=== PATIENT | male | born 1990 | race Caucasian/White ===

== ENCOUNTER 2020-04-13 02:38 | Inpatient (IN) | payer OTHER, SELFPAY ==
[2020-04-18 02:20] VITALS: BMI 31.3
[2020-04-19 06:48] VITALS: BP 106/56; PULSE 54; RESP 16; TEMP 36.5; O2SAT 99
[2020-04-19 07:00] VITALS: BMI 68.1
[2020-04-19] MEDS: QUEtiapine Fumarate 100 MG TABLET PO ×2 (09:30→20:11)
[2020-04-19] MEDS: clonazePAM 1 MG TABLET PO ×2 (09:30→17:03)
[2020-04-19 12:43] LABS: Valproate 61.9 mcg/mL (50.0-100.0)
[2020-04-19] MEDS: LORazepam 1 MG TABLET 2 MG PO (15:02)
[2020-04-19] MEDS: Magnesium Hydrox/Alum Hydrox 30 ML ORAL.SUSP PO (15:22)
[2020-04-19 16:59] VITALS: BP 127/80; PULSE 89; TEMP 36.8
--- NOTE | 2020-04-19 17:25 | HO.PSYCHPN ---
Assessment & Plan Assessment & Plan (1) Mood swings: Status: Acute Code(s): R45.86 - Emotional lability Assessment and Plan: Continue seroquel Continue education Monitor response Greater than 50% of the session was spent on counseling and/or coordination of care Subjective Subjective Date of Service: 04/19/20 Reason For Visit: Schizoaffective D/O Bipolar Type Subjective Notes: Conditional Voluntary and 3 Day Interim History: Rai is calmer and more engaged. He articulates that he can see that he needs to be on mood stabilization and that without it he is impulsive and erratic. He has found the current dose of seroquel helpful. He is likely to be DC 04/23/20 Medication Compliance: Yes Side effects from medications: No Attending Groups: Intermittent Mental Status Exam Mental Status Exam Patient Appearance: Well Grooomed Patient Orientation: Person Level of Consciousness: Awake Patient Behavior: Talkative, Impulsive and Pacing Mood Description: Calm, Appropriate and Nervous Affect Description: Suspicious, Nervous and Apprehensive Ability to Follow Directions: Fair Speech Pattern: Clear Memory Description: Intact Thought Content: Circumstantial, Preoccupation and Evasive Depressive Symptoms: Increased Anxiety Abnormal Motor Activity Signs and Symptoms: Hyperactivity Judgement: Fair Diagnostics Vital Signs (24Hr): Vital Signs - 24 hr 04/19/20 06:48 04/19/20 16:59 Temperature 97.7 F 98.2 F Pulse Rate 54 89 Respiratory Rate 16 Blood Pressure 106/56 L 127/80 Pulse Oximetry 99 Body Mass Index 68.1 Labs Results: 04/15/20 07:55 04/15/20 07:55 Labs: Laboratory Results - last 48 hr 04/15/20 04/19/20 04/19/20 07:55 07:00 11:04 Estimat Average Glucose 103 Hemoglobin A1c 5.2 Valproic Acid Not Rcvd 61.9 Medications Medications Ambulatory Orders Medication Instructions Recorded clonazepam 1 mg PO BID 04/18/20 clonidine HCl 0.1 mg PO BID PRN 04/18/20 quetiapine 50 mg PO BEDTIME 04/18/20 Allergies Allergies Allergy/AdvReac Type Severity Reaction Status Date / Time Sulfa (Sulfonamide Allergy Unknown RASH Verified 04/18/20 18:51 Antibiotics) [SULFA (SULFONAMIDE ANTIBIOTICS)]
--- NOTE | 2020-04-19 17:30 | HO.PSYCHPN ---
Assessment & Plan Greater than 50% of the session was spent on counseling and/or coordination of care Subjective Subjective Date of Service: 04/19/20 Reason For Visit: Schizoaffective D/O Bipolar Type Subjective Notes: Conditional Voluntary and 3 Day Diagnostics Vital Signs (24Hr): Vital Signs - 24 hr 04/19/20 06:48 04/19/20 16:59 Temperature 97.7 F 98.2 F Pulse Rate 54 89 Respiratory Rate 16 Blood Pressure 106/56 L 127/80 Pulse Oximetry 99 Body Mass Index 68.1 Labs Results: 04/15/20 07:55 04/15/20 07:55 Labs: Laboratory Results - last 48 hr 04/15/20 04/19/20 04/19/20 07:55 07:00 11:04 Estimat Average Glucose 103 Hemoglobin A1c 5.2 Valproic Acid Not Rcvd 61.9 Medications Medications Ambulatory Orders Medication Instructions Recorded clonazepam 1 mg PO BID 04/18/20 clonidine HCl 0.1 mg PO BID PRN 04/18/20 quetiapine 50 mg PO BEDTIME 04/18/20 Allergies Allergies Allergy/AdvReac Type Severity Reaction Status Date / Time Sulfa (Sulfonamide Allergy Unknown RASH Verified 04/18/20 18:51 Antibiotics) [SULFA (SULFONAMIDE ANTIBIOTICS)]
[2020-04-19] MEDS: Divalproex Sodium ER 500 MG TAB.ER.24H 1000 MG PO (20:06)
[2020-04-19] MEDS: QUEtiapine Fumarate 400 MG TABLET PO (20:06)
[2020-04-20 06:20] VITALS: BP 108/58; PULSE 65; RESP 16; TEMP 36.6; O2SAT 96
[2020-04-20] MEDS: clonazePAM 1 MG TABLET PO ×2 (08:43→19:27)
[2020-04-20] MEDS: QUEtiapine Fumarate 100 MG TABLET PO ×2 (08:43→20:01)
[2020-04-20 10:27] LABS: Valproate 57.3 mcg/mL (50.0-100.0)
[2020-04-20] MEDS: LORazepam 1 MG TABLET 2 MG PO ×2 (12:21→19:35)
[2020-04-20 14:16] VITALS: BP 100/70; PULSE 68
[2020-04-20] MEDS: Magnesium Hydrox/Alum Hydrox 30 ML ORAL.SUSP PO (14:16)
[2020-04-20] MEDS: cloNIDine HCL 0.1 MG TABLET PO (14:16)
[2020-04-20 18:00] VITALS: BP 109/56; PULSE 69; TEMP 37.1
--- NOTE | 2020-04-20 19:07 | HO.PSYCHPN ---
Assessment & Plan Assessment & Plan (1) Mood swings: Status: Acute Code(s): R45.86 - Emotional lability Assessment and Plan: Continue seroquel Greater than 50% of the session was spent on counseling and/or coordination of care Subjective Subjective Date of Service: 04/20/20 Reason For Visit: Schizoaffective D/O Bipolar Type Subjective Notes: Conditional Voluntary and 3 Day Interim History: Ria continues to be more settled and more willing to take seroquel. He is more accepting of the need to take medications and of his illness. He is hoping to go home on 04/23/20 and to return to work. Medication Compliance: Yes Side effects from medications: No Attending Groups: Yes Review of Systems Acute medical concerns: No Medical Review of Systems: unchanged Mental Status Exam Mental Status Exam Patient Appearance: Well Grooomed Patient Orientation: Person and Place Level of Consciousness: Appropriate Patient Behavior: Appropriate and Distractible Mood Description: Anxious and Angry Affect Description: Anxious Patient Cognition Impaired: No Ability to Follow Directions: Fair Speech Pattern: Clear Memory Description: Intact Hallucinations: None Delusions: Paranoid Ideation and Grandiose Thought Process: Rumination and Evasive Thought Content: positive for Suicidal Ideation (NONE) and positive for Homicidal Ideation (None) Judgement: Fair Judgement and Insight: Insight into illness is improving Diagnostics Vital Signs (24Hr): Vital Signs - 24 hr 04/20/20 06:20 04/20/20 14:16 Temperature 97.8 F Pulse Rate 65 68 Respiratory Rate 16 Blood Pressure 108/58 L 100/70 Pulse Oximetry 96 Body Mass Index 68.1 Labs Results: 04/15/20 07:55 04/15/20 07:55 Labs: Laboratory Results - last 48 hr 04/15/20 04/19/20 04/19/20 07:55 07:00 11:04 Estimat Average Glucose 103 Hemoglobin A1c 5.2 Valproic Acid Not Rcvd 61.9 04/20/20 07:53 Estimat Average Glucose Hemoglobin A1c Valproic Acid 57.3 Medications Medications Current Medications Generic Name Dose Route Start Last Admin Trade Name Freq PRN Reason Stop Dose Admin Acetaminophen 650 mg 04/19/20 00:01 Acetaminophen 325 Mg Tablet PO Q6H PRN HEADACHE/PAIN.MILD (SCALE 1-3) Al Hydroxide/Mg Hydroxide 30 ml 04/19/20 00:01 04/20/20 14:16 Magnesium Hydrox/Alum Hydrox 30 Ml Oral.Susp PO 30 ml Q6H PRN Administration HEARTBURN/NAUSEA Clonazepam 1 mg 04/19/20 08:00 04/20/20 08:43 Clonazepam 1 Mg Tablet PO 1 mg BID@0800,1700 MYRNA Administration Clonidine HCl 0.1 mg 04/19/20 00:01 04/20/20 14:16 Clonidine Hcl 0.1 Mg Tablet PO 0.1 mg BID PRN Administration Anxiety Protocol Divalproex Sodium 1,000 mg 04/19/20 21:00 04/19/20 20:06 Divalproex Sodium Er 500 Mg Tab.Er.24h PO 1,000 mg BEDTIME MYRNA Administration Hydroxyzine HCl 25 mg 04/19/20 21:00 Hydroxyzine Hcl 25 Mg Tablet PO BEDTIME MRX1 PRN NIGHT TIME ANXIETY Lorazepam 2 mg 04/19/20 00:01 04/20/20 12:21 Lorazepam 1 Mg Tablet PO 2 mg Q4H PRN Administration anxiety/restlessness Magnesium Hydroxide 30 ml 04/19/20 00:01 Milk Of Magnesia 30 Ml Oral.Susp PO Q24H PRN Constipation Nicotine Polacrilex 2 mg 04/19/20 00:01 Nicotine Polacrilex 2 Mg Gum BUCCAL Q2H PRN Nicotine Cravings Quetiapine Fumarate 100 mg 04/19/20 09:00 04/20/20 08:43 Quetiapine Fumarate 100 Mg Tablet PO 100 mg DAILY MYRNA Administration Quetiapine Fumarate 100 mg 04/19/20 00:01 04/19/20 20:11 Quetiapine Fumarate 100 Mg Tablet PO 100 mg Q4H PRN Administration Psychosis Quetiapine Fumarate 400 mg 04/19/20 21:00 04/19/20 20:06 Quetiapine Fumarate 400 Mg Tablet PO 400 mg BEDTIME MYRNA Administration Trazodone HCl 50 mg 04/19/20 21:00 Trazodone Hcl 50 Mg Tablet PO BEDTIME MRX1 PRN Insomnia Allergies Allergies Allergy/AdvReac Type Severity Reaction Status Date / Time Sulfa (Sulfonamide Allergy Unknown RASH Verified 04/18/20 18:51 Antibiotics) [SULFA (SULFONAMIDE ANTIBIOTICS)]
[2020-04-20] MEDS: QUEtiapine Fumarate 400 MG TABLET PO (19:59)
[2020-04-20] MEDS: Divalproex Sodium ER 500 MG TAB.ER.24H 1000 MG PO (19:59)
[2020-04-21 06:50] VITALS: BP 109/56; PULSE 56; RESP 16; TEMP 37.1
[2020-04-21] MEDS: QUEtiapine Fumarate 100 MG TABLET PO ×2 (08:44→21:52)
[2020-04-21] MEDS: clonazePAM 1 MG TABLET PO ×2 (08:44→17:12)
--- NOTE | 2020-04-21 12:10 | HO.PSYCHPN ---
Assessment & Plan Assessment & Plan (1) Mood swings: Status: Acute Code(s): R45.86 - Emotional lability Assessment and Plan: reviewed plan for dc and taking medications, pt excited to go back to work has been in touch with nate greene and will follow up with outpatient for medications Greater than 50% of the session was spent on counseling and/or coordination of care Subjective Subjective Date of Service: 04/21/20 Reason For Visit: Schizoaffective D/O Bipolar Type Subjective Notes: 3 Day Interim History: anxious and excited to go back to work happy to be back on his medications Medication Compliance: Yes Side effects from medications: Yes (xs sleeping- but ok with that) Attending Groups: No Review of Systems Acute medical concerns: No Review of Systems: some xs fatigue back on medications Mental Status Exam Mental Status Exam Narrative: appropriately dressed in street clothes, groomed Patient Appearance: Well Grooomed Patient Orientation: Person, Place, Time and Situation Level of Consciousness: Restless and Alert Patient Behavior: Appropriate, Cooperative and Pacing Mood Description: Apprehensive Affect Description: Expansive (possibly) Patient Cognition Impaired: No Memory Description: Intact and Normal for Patient Hallucinations: None Delusions: Grandiose (slight- tamara [employer] ) Thought Process: Intact Thought Content: positive for [place] Abnormal Motor Activity Signs and Symptoms: Hyperactivity (pacing) and Restlessness Judgement: Fair (knows he needs to be back on medications) Diagnostics Vital Signs (24Hr): Vital Signs - 24 hr 04/20/20 14:16 04/20/20 18:00 04/21/20 06:50 Temperature 98.8 F 98.7 F Pulse Rate 68 69 56 Respiratory Rate 16 Blood Pressure 100/70 109/56 L 109/56 L Body Mass Index Labs Results: 04/15/20 07:55 04/15/20 07:55 Labs: Laboratory Results - last 48 hr 04/19/20 04/20/20 11:04 07:53 Valproic Acid 61.9 57.3 Medications Medications Current Medications Generic Name Dose Route Start Last Admin Trade Name Freq PRN Reason Stop Dose Admin Acetaminophen 650 mg 04/19/20 00:01 Acetaminophen 325 Mg Tablet PO Q6H PRN HEADACHE/PAIN.MILD (SCALE 1-3) Al Hydroxide/Mg Hydroxide 30 ml 04/19/20 00:01 10/02/20 14:16 Magnesium Hydrox/Alum Hydrox 30 Ml Oral.Susp PO 30 ml Q6H PRN Administration HEARTBURN/NAUSEA Clonazepam 1 mg 04/19/20 08:00 04/21/20 08:44 Clonazepam 1 Mg Tablet PO 1 mg BID@0800,1700 MYRNA Administration Clonidine HCl 0.1 mg 04/19/20 00:01 04/20/20 14:16 Clonidine Hcl 0.1 Mg Tablet PO 0.1 mg BID PRN Administration Anxiety Protocol Divalproex Sodium 1,000 mg 04/19/20 21:00 04/20/20 19:59 Divalproex Sodium Er 500 Mg Tab.Er.24h PO 1,000 mg BEDTIME MYRNA Administration Hydroxyzine HCl 25 mg 04/19/20 21:00 Hydroxyzine Hcl 25 Mg Tablet PO BEDTIME MRX1 PRN NIGHT TIME ANXIETY Lorazepam 2 mg 04/19/20 00:01 04/20/20 19:35 Lorazepam 1 Mg Tablet PO 2 mg Q4H PRN Administration anxiety/restlessness Magnesium Hydroxide 30 ml 04/19/20 00:01 Milk Of Magnesia 30 Ml Oral.Susp PO Q24H PRN Constipation Nicotine Polacrilex 2 mg 04/19/20 00:01 Nicotine Polacrilex 2 Mg Gum BUCCAL Q2H PRN Nicotine Cravings Quetiapine Fumarate 100 mg 04/19/20 09:00 04/21/20 08:44 Quetiapine Fumarate 100 Mg Tablet PO 100 mg DAILY MYRNA Administration Quetiapine Fumarate 100 mg 04/19/20 00:01 04/20/20 20:01 Quetiapine Fumarate 100 Mg Tablet PO 100 mg Q4H PRN Administration Psychosis Quetiapine Fumarate 400 mg 04/19/20 21:00 04/20/20 19:59 Quetiapine Fumarate 400 Mg Tablet PO 400 mg BEDTIME MYRNA Administration Trazodone HCl 50 mg 04/19/20 21:00 Trazodone Hcl 50 Mg Tablet PO BEDTIME MRX1 PRN Insomnia Allergies Allergies Allergy/AdvReac Type Severity Reaction Status Date / Time Sulfa (Sulfonamide Allergy Unknown RASH Verified 04/18/20 18:51 Antibiotics) [SULFA (SULFONAMIDE ANTIBIOTICS)]
[2020-04-21 12:24] VITALS: BP 120/67; PULSE 105
[2020-04-21] MEDS: cloNIDine HCL 0.1 MG TABLET PO (12:24)
[2020-04-21] MEDS: LORazepam 1 MG TABLET 2 MG PO ×2 (13:32→20:50)
[2020-04-21 19:09] VITALS: BP 130/56; PULSE 108; TEMP 36.6
[2020-04-21] MEDS: QUEtiapine Fumarate 400 MG TABLET PO (20:51)
[2020-04-21] MEDS: Divalproex Sodium ER 500 MG TAB.ER.24H 1000 MG PO (20:51)
[2020-04-21] MEDS: traZODone HCL 50 MG TABLET PO (21:52)
[2020-04-22 06:00] VITALS: BP 108/57; PULSE 60; RESP 16; TEMP 36.2; O2SAT 98
[2020-04-22] MEDS: QUEtiapine Fumarate 100 MG TABLET PO ×2 (08:24→19:48)
[2020-04-22] MEDS: clonazePAM 1 MG TABLET PO ×2 (08:24→17:09)
--- NOTE | 2020-04-22 12:31 | HO.PSYCHPN ---
Assessment & Plan Assessment & Plan (1) Mood swings: Status: Acute Code(s): R45.86 - Emotional lability Assessment and Plan: anxious to get back to [employer] job now that back on medications only has 6 wks of work to go Greater than 50% of the session was spent on counseling and/or coordination of care Subjective Subjective Date of Service: 04/22/20 Reason For Visit: Schizoaffective D/O Bipolar Type Subjective Notes: 3 Day Interim History: initially was lying in bed, didn't engage much, then saw me in kitchen- anxious to get back to work - discussed with pt lowering of ativan, though he says it helps- but he won't be dced on it and is also on clonazepam - Medication Compliance: Yes Side effects from medications: No Attending Groups: Intermittent Review of Systems Acute medical concerns: No Medical Review of Systems: unchanged Mental Status Exam Mental Status Exam Narrative: patient managing symptoms but seems on edge- a bit off Patient Appearance: Appropriate Patient Orientation: Person, Place, Time and Situation Level of Consciousness: Awake and Alert Patient Behavior: Talkative, Hyperactive and Anxious Mood Description: Anxious Affect Description: Apprehensive Patient Cognition Impaired: No Ability to Follow Directions: Fair Speech Pattern: Clear Hallucinations: None Thought Process: Racing and Rumination Depressive Symptoms: Increased Anxiety Abnormal Motor Activity Signs and Symptoms: Hyperactivity Judgement: Fair (maybe trying to get dc too quickly due to some pressure to get to work) Diagnostics Vital Signs (24Hr): Vital Signs - 24 hr 04/21/20 19:09 04/22/20 06:00 Temperature 97.8 F 97.1 F Pulse Rate 108 H 60 Respiratory Rate 16 Blood Pressure 130/56 L 108/57 L Pulse Oximetry 98 Body Mass Index Labs Results: 04/15/20 07:55 04/15/20 07:55 Medications Medications Current Medications Generic Name Dose Route Start Last Admin Trade Name Freq PRN Reason Stop Dose Admin Acetaminophen 650 mg 04/19/20 00:01 Acetaminophen 325 Mg Tablet PO Q6H PRN HEADACHE/PAIN.MILD (SCALE 1-3) Al Hydroxide/Mg Hydroxide 30 ml 04/19/20 00:01 04/20/20 14:16 Magnesium Hydrox/Alum Hydrox 30 Ml Oral.Susp PO 30 ml Q6H PRN Administration HEARTBURN/NAUSEA Clonazepam 1 mg 04/19/20 08:00 04/22/20 08:24 Clonazepam 1 Mg Tablet PO 1 mg BID@0800,1700 MYRNA Administration Clonidine HCl 0.1 mg 04/19/20 00:01 04/21/20 12:24 Clonidine Hcl 0.1 Mg Tablet PO 0.1 mg BID PRN Administration Anxiety Protocol Divalproex Sodium 1,000 mg 04/19/20 21:00 04/21/20 20:51 Divalproex Sodium Er 500 Mg Tab.Er.24h PO 1,000 mg BEDTIME MYRNA Administration Hydroxyzine HCl 25 mg 04/19/20 21:00 Hydroxyzine Hcl 25 Mg Tablet PO BEDTIME MRX1 PRN NIGHT TIME ANXIETY Lorazepam 1 mg 04/22/20 10:52 Lorazepam 1 Mg Tablet PO Q4H PRN anxiety/restlessness Magnesium Hydroxide 30 ml 04/19/20 00:01 Milk Of Magnesia 30 Ml Oral.Susp PO Q24H PRN Constipation Nicotine Polacrilex 2 mg 04/19/20 00:01 Nicotine Polacrilex 2 Mg Gum BUCCAL Q2H PRN Nicotine Cravings Quetiapine Fumarate 100 mg 04/19/20 09:00 04/22/20 08:24 Quetiapine Fumarate 100 Mg Tablet PO 100 mg DAILY MYRNA Administration Quetiapine Fumarate 100 mg 04/19/20 00:01 04/21/20 21:52 Quetiapine Fumarate 100 Mg Tablet PO 100 mg Q4H PRN Administration Psychosis Quetiapine Fumarate 400 mg 04/19/20 21:00 04/21/20 20:51 Quetiapine Fumarate 400 Mg Tablet PO 400 mg BEDTIME MYRNA Administration Trazodone HCl 50 mg 04/19/20 21:00 04/21/20 21:52 Trazodone Hcl 50 Mg Tablet PO 50 mg BEDTIME MRX1 PRN Administration Insomnia Allergies Allergies Allergy/AdvReac Type Severity Reaction Status Date / Time Sulfa (Sulfonamide Allergy Unknown RASH Verified 04/18/20 18:51 Antibiotics) [SULFA (SULFONAMIDE ANTIBIOTICS)]
[2020-04-22 12:54] VITALS: BP 117/68; PULSE 103
[2020-04-22] MEDS: LORazepam 1 MG TABLET PO ×2 (12:54→19:47)
[2020-04-22] MEDS: cloNIDine HCL 0.1 MG TABLET PO (12:54)
[2020-04-22] MEDS: Magnesium Hydrox/Alum Hydrox 30 ML ORAL.SUSP PO (14:02)
[2020-04-22 16:24] VITALS: BP 117/68; PULSE 88; TEMP 36.4
[2020-04-22] MEDS: QUEtiapine Fumarate 400 MG TABLET PO (19:42)
[2020-04-22] MEDS: Divalproex Sodium ER 500 MG TAB.ER.24H 1000 MG PO (19:42)
[2020-04-22] MEDS: traZODone HCL 50 MG TABLET PO (22:08)
[2020-04-23 06:55] VITALS: BP 111/59; PULSE 78; RESP 18; TEMP 36.5
[2020-04-23] MEDS: clonazePAM 1 MG TABLET PO (08:23)
[2020-04-23] MEDS: QUEtiapine Fumarate 100 MG TABLET PO (08:23)
--- NOTE | 2020-04-23 09:26 | HO.PSYCHPN ---
Assessment & Plan Assessment & Plan (1) Bipolar disorder: Status: Acute Code(s): F31.9 - Bipolar disorder, unspecified Assessment and Plan: Good response to medication Stable for DC Greater than 50% of the session was spent on counseling and/or coordination of care Patient educated on: diagnosis, medication risk/benefits and substance abuse Informed Consent: understands Reason for contiued inpatient stay Substantial Risk for: stable for discharge Subjective Subjective Date of Service: 04/23/20 Reason For Visit: Schizoaffective D/O Bipolar Type Subjective Notes: 3 Day Interim History: Rai was notably calmer and more engaged. He was able to acknowlege that the medication has been helpful and that he intends to stay on it. Medication Compliance: Yes Side effects from medications: No Attending Groups: Yes Review of Systems Acute medical concerns: No Medical Review of Systems: unchanged Mental Status Exam Mental Status Exam Patient Appearance: Well Grooomed Patient Orientation: Person, Place and Time Level of Consciousness: Awake Patient Behavior: Appropriate Mood Description: Calm Affect Description: Calm Patient Cognition Impaired: No Ability to Follow Directions: Excellent Speech Pattern: Normal for Patient Memory Description: Intact Hallucinations: None Delusions: Not Present Thought Process: Intact Thought Content: positive for Intact, positive for Suicidal Ideation (no) and positive for Homicidal Ideation (no) Judgement: Fair Judgement and Insight: Much improved understanding of his illness Diagnostics Vital Signs (24Hr): Vital Signs - 24 hr 04/22/20 12:54 04/22/20 16:24 04/23/20 06:55 Temperature 97.6 F 97.7 F Pulse Rate 103 H 88 78 Respiratory Rate 18 Blood Pressure 117/68 117/68 111/59 L Body Mass Index 68.1 Labs Results: 04/15/20 07:55 04/15/20 07:55 Medications Medications Current Medications Generic Name Dose Route Start Last Admin Trade Name Freq PRN Reason Stop Dose Admin Acetaminophen 650 mg 04/19/20 00:01 Acetaminophen 325 Mg Tablet PO Q6H PRN HEADACHE/PAIN.MILD (SCALE 1-3) Al Hydroxide/Mg Hydroxide 30 ml 04/19/20 00:01 04/22/20 14:02 Magnesium Hydrox/Alum Hydrox 30 Ml Oral.Susp PO 30 ml Q6H PRN Administration HEARTBURN/NAUSEA Clonazepam 1 mg 04/19/20 08:00 10/05/20 08:23 Clonazepam 1 Mg Tablet PO 1 mg BID@0800,1700 MYRNA Administration Clonidine HCl 0.1 mg 04/19/20 00:01 04/22/20 12:54 Clonidine Hcl 0.1 Mg Tablet PO 0.1 mg BID PRN Administration Anxiety Protocol Divalproex Sodium 1,000 mg 04/19/20 21:00 04/22/20 19:42 Divalproex Sodium Er 500 Mg Tab.Er.24h PO 1,000 mg BEDTIME MYRNA Administration Hydroxyzine HCl 25 mg 04/19/20 21:00 Hydroxyzine Hcl 25 Mg Tablet PO BEDTIME MRX1 PRN NIGHT TIME ANXIETY Lorazepam 1 mg 04/22/20 10:52 04/22/20 19:47 Lorazepam 1 Mg Tablet PO 1 mg Q4H PRN Administration anxiety/restlessness Magnesium Hydroxide 30 ml 04/19/20 00:01 Milk Of Magnesia 30 Ml Oral.Susp PO Q24H PRN Constipation Nicotine Polacrilex 2 mg 04/19/20 00:01 Nicotine Polacrilex 2 Mg Gum BUCCAL Q2H PRN Nicotine Cravings Quetiapine Fumarate 100 mg 04/19/20 09:00 04/23/20 08:23 Quetiapine Fumarate 100 Mg Tablet PO 100 mg DAILY MYRNA Administration Quetiapine Fumarate 100 mg 04/19/20 00:01 04/22/20 19:48 Quetiapine Fumarate 100 Mg Tablet PO 100 mg Q4H PRN Administration Psychosis Quetiapine Fumarate 400 mg 04/19/20 21:00 04/22/20 19:42 Quetiapine Fumarate 400 Mg Tablet PO 400 mg BEDTIME MYRNA Administration Trazodone HCl 50 mg 04/19/20 21:00 04/22/20 22:08 Trazodone Hcl 50 Mg Tablet PO 50 mg BEDTIME MRX1 PRN Administration Insomnia Allergies Allergies Allergy/AdvReac Type Severity Reaction Status Date / Time Sulfa (Sulfonamide Allergy Unknown RASH Verified 04/18/20 18:51 Antibiotics) [SULFA (SULFONAMIDE ANTIBIOTICS)]
--- NOTE | 2020-04-23 10:25 | P.DS_ITS ---
DS: Providers Provider Date of admission: 04/13/20 02:38 Primary care physician: None Physician Admitting clinician: Anita Brown Attending physician on admission: Anita Brown Consults: 04/18/20 05:19 Consult to Care Team Routine Consult to Crisis Routine Attending physician on discharge: Anita Brown Anticipated date of discharge: 04/23/20 DS: Diagnosis Discharge Diagnosis (1) Mood swings: Status: Acute Problem details: Individual was admitted with delusional thinking and agitation in the context of not taking medication after his last discharge. He was disorganized and agitated. See admission note. He was reluctant to engage in treatment but he agreed to seroquel and depakote. As these were titrated he showed an excellent response to medication, and developed an improved insight into his condition. He accepted his after care plan. Discharge Plan Discharge Anticipated Discharge Date/Time: 04/23/20 11:00 Patient Disposition: Home, Self-Care Referrals: Virginia Chen (therapist) [Other] - 04/24/20 1:00 pm Tommy Beckett (psychiatrist) [Other] - 05/29/20 10:00 am Tommy Beckett (psychiatrist) [Other] - 06/19/20 3:00 pm REHANA [Other] Physician,None [Primary Care Provider] - Discharge Medications: New trazodone 50 mg Tablet 50 mg PO BEDTIME MRX1 PRN (Reason: Insomnia) Qty: 30 RF: 0 quetiapine 100 mg Tablet 100 mg PO DAILY Qty: 30 RF: 0 divalproex 500 mg Tablet Extended Release 24 Hr 1,000 mg PO BEDTIME Qty: 60 RF: 0 hydroxyzine HCl 25 mg Tablet 25 mg PO BEDTIME MRX1 PRN (Reason: NIGHT TIME ANXIETY) Qty: 30 RF: 0 quetiapine 400 mg Tablet 400 mg PO BEDTIME Qty: 30 RF: 0 Continued clonidine HCl 0.1 mg Tablet 0.1 mg PO BID PRN (Reason: Anxiety) Qty: 60 RF: 0 clonazepam 1 mg Tablet 1 mg PO BID Qty: 60 RF: 0 Discontinued quetiapine 50 mg Tablet 50 mg PO BEDTIME RF: 0 Discharge Orders: Discharge Order (Routine); Ordered 04/23/20 Ordered By: Anita Brown Diet: advance to your usual diet Activity on Discharge: As tolerated Discharge Date/Time: 04/23/20 11:25 Other Ambulatory Orders: Valproate (Routine) Timeframe: 1 Week Facility: [facility] - Location: [address] [place] [address]-Lab Ordered By: Anita Brown Visit Report Forms: Patient Portal Discharge page Care Plan Goals: Stay on your medications Go to your appointments Health Concerns: Psychosis Mood lability Plan of Treatment: Reduce psychosis to allow return to work
== END 2020-04-23 11:25 | disposition home or self-care (01) | DRG 753 ==
PROVIDERS: Admitting Provider Psychiatry & Neurology Psychiatry; Emergency Provider Physician Assistant Medical; Visit Provider Psychiatry & Neurology Psychiatry
DX: F31.2 Bipolar disorder, current episode manic severe with psychotic features (principal); Z91.14 Patient's other noncompliance with medication regimen; F17.210 Nicotine dependence, cigarettes, uncomplicated; Z20.828 Contact with and (suspected) exposure to other viral communicable diseases; Z71.6 Tobacco abuse counseling; Z88.2 Allergy status to sulfonamides; Z88.6 Allergy status to analgesic agent; Z79.899 Other long term (current) drug therapy
CPT/HCPCS: 36415; 80053; 80061; 80076; 80164; 80307; 80320; 83036; 84443; 85025; 93005; 99232; 99285; U0003

== ENCOUNTER 2020-06-25 22:43 | Inpatient (IN) | payer OTHER, SELFPAY ==
[2020-06-25 23:05] VITALS: BP 136/89; PULSE 97; RESP 20; TEMP 37.2; O2SAT 95
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
[2020-06-25 23:20] VITALS: BP 106/62; PULSE 96; RESP 17; TEMP 37.1; O2SAT 95
[2020-06-25 23:35] VITALS: BP 115/65; PULSE 90; RESP 16; TEMP 36.6; O2SAT 95
[2020-06-25 23:50] VITALS: BP 118/66; PULSE 85; RESP 16; TEMP 36.6; O2SAT 95
[2020-06-26] VITALS (14 sets, daily range): BP systolic 109–130; BP diastolic 51–87; PULSE 83–108; RESP 16–20; TEMP 36.3–37.2; O2SAT 93–96; BMI 31.6
[2020-06-26] MEDS: Haloperidol Lactate 5 MG/ML VIAL IM (00:40)
[2020-06-26] MEDS: LORazepam 2 MG/ML VIAL IM (00:40)
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
--- NOTE | 2020-06-26 02:08 | PC.NURSE ---
PT let out of restraints after calming down and becoming tired. PT is agreeing to exhibit appropriate behavior on the unit. Not threatening staff, not harming self, and behaving in a calm and cooperative manner. PT is now sleeping in bed. Breathing is even and unlabored. PT still needs to provide blood and urine samples. BHN consult ordered by provider.
--- NOTE | 2020-06-26 04:27 | ECG_ITS ---
Test Reason : MEDICAL CLEARANCE Blood Pressure : / mmHG Vent. Rate : 095 BPM Atrial Rate : 095 BPM P-R Int : 156 ms QRS Dur : 090 ms QT Int : 348 ms P-R-T Axes : 073 063 053 degrees QTc Int : 437 ms Sinus rhythm with marked sinus arrhythmia Possible Left atrial enlargement Borderline ECG When compared with ECG of 16-APR-2020 09:54, Questionable change in QRS axis Referred By: Darshana Michaud Electronically Signed By:SHARON KANG
--- NOTE | 2020-06-26 05:03 | PC.NURSE ---
EMMAN called and faxed. PT will likely be seen later this morning.
--- NOTE | 2020-06-26 05:04 | PC.NURSE ---
PT refused EKG per provider's request.
--- NOTE | 2020-06-26 07:08 | PC.NURSE ---
Report recieved. PT currently yelling at staff, security on unit, pt redirectible at this time. Occasional verbal outbursts. Pt stating that he talks to the government and will call them as soon as he is out of here. Plan of care explained.
[2020-06-26] MEDS: LORazepam 1 MG TABLET 2 MG PO ×2 (07:20→19:30)
[2020-06-26] MEDS: HaloperidoL 5 MG TABLET PO (07:20)
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
[2020-06-26 10:46] LABS: Basophils Percent Auto 0.4 % (0-2); Eosinophils Absolute Auto 0.1 X10*3/uL (0.0-0.4); Eosinophils Percent Auto 0.8 % (0-4); Hematocrit 50.4 % (42-52); Hemoglobin 17.5 g/dl (14.0-18.0); Imm Gran Abs Auto 0.01 X10*3/uL (0.00-0.03); Imm Gran Pct Auto 0.1 % (0.0-0.4); Lymphocytes Absolute Auto 1.7 X10*3/uL (1.2-4.9); Lymphocytes Percent Auto 22.2 % (20-40); Mean Corpuscular HGB Conc 34.7 g/dl (31.0-36.0); Mean Corpuscular Hemoglobin 31.9 pg (27.0-33.0); Mean Platelet Volume 10.3 fL (9.4-12.4); Monocytes Absolute Auto 0.4 X10*3/uL (0.1-1.2); Monocytes Percent Auto 5.2 % (2-11); Neutrophils Absolute Auto 5.6 X10*3/uL (2.0-8.3); Neutrophils Percent Auto 71.3 % (45-73); Platelet Count 201 X10*3/uL (160-400); Red Blood Count 5.48 X10*6/uL (4.60-5.80); Red Cell Distribution Width 11.9 % (11.0-16.0); White Blood Count 7.9 X10*3/uL (4.8-10.8)
[2020-06-26 10:47] LABS: MANUAL DIFF FLAG NO
[2020-06-26 11:12] LABS: Ethanol 22 mg/dL
[2020-06-26 11:15] LABS: Alanine Aminotransferase 38 U/L (0-40); Albumin Level 5.1 g/dL (3.5-5.0); Alkaline Phosphatase 93 U/L (39-117); Anion Gap 16 (12-20); Aspartate Amino Transferase 51 U/L (5-37); Bilirubin Direct 0.2 mg/dL (0.0-0.5); Bilirubin Total 0.5 mg/dL (0.0-1.0); Blood Urea Nitrogen 17 mg/dL (9-16); Calcium 9.3 mg/dL (8.4-10.2); Carbon Dioxide 22 mmol/L (22-29); Chloride 108 mmol/L (96-108); Creatinine Clr Calc Pharmacy 152.1; Estimated Glomerular Filt Rate > 60; Glucose Random 92 mg/dL (60-115); Lipase 13 U/L (8-78); Potassium 4.5 mmol/l (3.3-5.1); Sodium 141 mmol/L (135-145)
[2020-06-26 11:35] LABS: Magnesium 2.3 mg/dL (1.6-2.6)
--- NOTE | 2020-06-26 12:06 | MHC.CARE ---
1200 Call to [facility] Reina, spoke to Alondra, CARE Team will see this patient. She told the supervisor data processing who stated he will call the insurance co.
[2020-06-26] MEDS: clonazePAM 1 MG TABLET PO ×2 (13:07→21:09)
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
[2020-06-26] MEDS: cloNIDine HCL 0.1 MG TABLET PO (13:39)
[2020-06-26 15:30] LABS: COVID-19 Test Negative (Negative); IDNOW Serial# 9DD0AD1C
--- NOTE | 2020-06-26 19:21 | PC.NURSE ---
Report received. PT is pacing around the unit. Calm and cooperative. Waiting to be transferred to .
[2020-06-26] MEDS: Divalproex Sodium ER 500 MG TAB.ER.24H 1000 MG PO (21:08)
[2020-06-26] MEDS: QUEtiapine Fumarate 100 MG TABLET 450 MG PO (21:09)
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
[2020-06-27 06:50] VITALS: BP 109/58; PULSE 90; RESP 18; TEMP 36.5
[2020-06-27 09:00] LABS: Valproate 18.1 mcg/mL (50.0-100.0)
[2020-06-27] MEDS: QUEtiapine Fumarate 100 MG TABLET PO ×2 (09:02→20:04)
[2020-06-27] MEDS: clonazePAM 1 MG TABLET PO ×2 (09:02→20:03)
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
[2020-06-27 16:34] VITALS: BP 130/77; PULSE 103; TEMP 37
[2020-06-27] MEDS: Divalproex Sodium ER 500 MG TAB.ER.24H 1000 MG PO (20:03)
[2020-06-27] MEDS: QUEtiapine Fumarate 100 MG TABLET 450 MG PO (20:04)
[2020-06-28 06:00] VITALS: BP 114/66; PULSE 77; TEMP 36.2
[2020-06-28 07:00] VITALS: BMI 31.4
[2020-06-28] MEDS: QUEtiapine Fumarate 100 MG TABLET PO (08:59)
[2020-06-28] MEDS: clonazePAM 1 MG TABLET PO ×2 (08:59→20:11)
--- NOTE | 2020-06-28 09:26 | P.PNPSI_ITS ---
Subjective Subjective Date of Service: 06/28/20 Reason For Visit: Behavior Disorder Subjective Notes: 3 Day Interim History: Rai has been keeping to himself and taking medications as prescribed. He has been in behavioral control. He has very little memory of what happened to bring in the hospital. He acknowledged that he forgets to take his medication. Strategies to increase compliance were reviewed. Medication Compliance: Yes Side effects from medications: No Attending Groups: No Review of Systems Acute medical concerns: No Medical Review of Systems: unchanged Mental Status Exam Mental Status Exam Patient Appearance: Fatigued and Disheveled Patient Orientation: Person and Place Level of Consciousness: Drowsy Patient Behavior: Guarded Mood Description: Apathetic Affect Description: Apathetic Ability to Follow Directions: Poor Speech Pattern: Appropriate and Mumbled Memory Description: Remote Impaired Hallucinations: None Delusions: Not Present Thought Content: positive for Circumstantial, negative for Suicidal Ideation and negative for Homicidal Ideation Judgement: Fair Diagnostics Vital Signs (24Hr): Vital Signs - 24 hr 06/27/20 16:34 06/28/20 06:00 Temperature 98.6 F 97.2 F Pulse Rate 103 H 77 Blood Pressure 130/77 114/66 Body Mass Index 31.4 Labs Results: 06/26/20 10:39 06/26/20 10:39 Labs: Laboratory Results - last 48 hr 06/26/20 06/26/20 06/26/20 10:39 10:39 10:39 WBC 7.9 RBC 5.48 Hgb 17.5 Hct 50.4 MCV 92.0 MCH 31.9 MCHC 34.7 RDW 11.9 Plt Count 201 MPV 10.3 Immature Gran % (Auto) 0.1 Neut % (Auto) 71.3 Lymph % (Auto) 22.2 [place] % (Auto) 5.2 Eos % (Auto) 0.8 Baso % (Auto) 0.4 Lymph # (Auto) 1.7 [place] # (Auto) 0.4 Eos # (Auto) 0.1 Baso # (Auto) 0.0 Abs Immat Gran (auto) 0.01 Absolute Neuts (auto) 5.6 Absolute Nucleated RBC 0.000 Nucleated RBC % (auto) 0.0 Sodium 141 Potassium 4.5 Chloride 108 Carbon Dioxide 22 Anion Gap 16 BUN 17 H Creatinine 0.91 Estim Creat Clear Calc 152.1 Estimated GFR > 60 Random Glucose 92 Calcium 9.3 Magnesium Total Bilirubin 0.5 Direct Bilirubin 0.2 AST 51 H ALT 38 Alkaline Phosphatase 93 Total Protein 8.0 Albumin 5.1 H Lipase Valproic Acid Ethyl Alcohol 22 COVID-19 (JUSTIN) COVID-19 [facility] Com 06/26/20 06/26/20 06/26/20 10:39 10:39 15:03 WBC RBC Hgb Hct MCV MCH MCHC RDW Plt Count MPV Immature Gran % (Auto) Neut % (Auto) Lymph % (Auto) [place] % (Auto) Eos % (Auto) Baso % (Auto) Lymph # (Auto) [place] # (Auto) Eos # (Auto) Baso # (Auto) Abs Immat Gran (auto) Absolute Neuts (auto) Absolute Nucleated RBC Nucleated RBC % (auto) Sodium Potassium Chloride Carbon Dioxide Anion Gap BUN Creatinine Estim Creat Clear Calc Estimated GFR Random Glucose Calcium Magnesium 2.3 Total Bilirubin Direct Bilirubin AST ALT Alkaline Phosphatase Total Protein Albumin Lipase 13 Valproic Acid Ethyl Alcohol COVID-19 (JUSTIN) Negative COVID-19 [facility] See Note 06/27/20 08:03 WBC RBC Hgb Hct MCV MCH MCHC RDW Plt Count MPV Immature Gran % (Auto) Neut % (Auto) Lymph % (Auto) [place] % (Auto) Eos % (Auto) Baso % (Auto) Lymph # (Auto) [place] # (Auto) Eos # (Auto) Baso # (Auto) Abs Immat Gran (auto) Absolute Neuts (auto) Absolute Nucleated RBC Nucleated RBC % (auto) Sodium Potassium Chloride Carbon Dioxide Anion Gap BUN Creatinine Estim Creat Clear Calc Estimated GFR Random Glucose Calcium Magnesium Total Bilirubin Direct Bilirubin AST ALT Alkaline Phosphatase Total Protein Albumin Lipase Valproic Acid 18.1 L Ethyl Alcohol COVID-19 (JUSTIN) COVID-19 [facility] Medications Medications Current Medications Generic Name Dose Route Start Last Admin Trade Name Freq PRN Reason Stop Dose Admin Acetaminophen 650 mg 06/26/20 19:53 Acetaminophen 325 Mg Tablet PO Q6H PRN Headache/Pain Mild Scale (1-3) Al Hydroxide/Mg Hydroxide 30 ml 06/26/20 19:53 Magnesium Hydrox/Alum Hydrox 30 Ml Oral.Susp PO Q6H PRN Heartburn/Nausea Clonazepam 1 mg 06/26/20 21:00 06/28/20 08:59 Clonazepam 1 Mg Tablet PO 1 mg BID MYRNA Administration Clonidine HCl 0.1 mg 06/26/20 20:11 Clonidine Hcl 0.1 Mg Tablet PO BID PRN Anxiety Protocol Divalproex Sodium 1,000 mg 06/26/20 21:00 06/27/20 20:03 Divalproex Sodium Er 500 Mg Tab.Er.24h PO 1,000 mg BEDTIME MYRNA Administration Haloperidol 5 mg 06/26/20 20:51 Haloperidol 5 Mg Tablet PO Q6H PRN anxiety/restlessness Hydroxyzine HCl 25 mg 06/26/20 19:53 Hydroxyzine Hcl 25 Mg Tablet PO BEDTIME PRN Anxiety Lorazepam 1 mg 06/26/20 20:51 Lorazepam 1 Mg Tablet PO Q6H PRN Anxiety Magnesium Hydroxide 30 ml 06/26/20 19:53 Milk Of Magnesia 30 Ml Oral.Susp PO DAILY PRN Constipation Nicotine 14 mg 06/27/20 09:00 06/27/20 09:02 Nicotine 14 Mg Patch.Td24 TRANSDERMA Not Given DAILY MYRNA Nicotine Polacrilex 2 mg 06/26/20 20:51 Nicotine Polacrilex 2 Mg Gum BUCCAL Q2H PRN Nicotine Cravings Quetiapine Fumarate 100 mg 06/27/20 09:00 06/28/20 08:59 Quetiapine Fumarate 100 Mg Tablet PO 100 mg DAILY MYRNA Administration Quetiapine Fumarate 450 mg 06/26/20 21:00 06/27/20 20:04 Quetiapine Fumarate 100 Mg Tablet PO 450 mg BEDTIME MYRNA Administration Trazodone HCl 50 mg 06/26/20 19:53 Trazodone Hcl 50 Mg Tablet PO BEDTIME PRN Insomnia Trazodone HCl 50 mg 06/26/20 20:11 Trazodone Hcl 50 Mg Tablet PO BEDTIME MRX1 PRN Insomnia Allergies Allergies Allergy/AdvReac Type Severity Reaction Status Date / Time Sulfa (Sulfonamide Allergy Unknown RASH Verified 04/18/20 18:51 Antibiotics) [SULFA (SULFONAMIDE ANTIBIOTICS)] Assessment & Plan Assessment & Plan (1) Alcohol use disorder, moderate, dependence: Status: Acute Code(s): F10.20 - Alcohol dependence, uncomplicated (2) Bipolar disorder: Qualifiers: Active/Remission status: currently active Current bipolar episode type: mixed Current episode severity: moderate Qualified Code(s): F31.62 - Bipolar disorder, current episode mixed, moderate Status: Acute Code(s): F31.9 - Bipolar disorder, unspecified Assessment and Plan: CT treatment plan Greater than 50% of the session was spent on counseling and/or coordination of care Patient educated on: diagnosis and medication risk/benefits Reason for contiued inpatient stay Substantial Risk for: inability to function and rapid decompensation
[2020-06-28 09:50] VITALS: BMI 31.4
[2020-06-28] MEDS: LORazepam 1 MG TABLET PO (13:34)
[2020-06-28] MEDS: HaloperidoL 5 MG TABLET PO (14:36)
[2020-06-28 16:24] VITALS: BP 142/90; PULSE 111; TEMP 37.2
[2020-06-28] MEDS: QUEtiapine Fumarate 100 MG TABLET 450 MG PO (20:10)
[2020-06-28] MEDS: Divalproex Sodium ER 500 MG TAB.ER.24H 1000 MG PO (20:11)
[2020-06-29 06:00] VITALS: BP 130/72; PULSE 72; RESP 16; TEMP 35.8; O2SAT 97
[2020-06-29] MEDS: QUEtiapine Fumarate 100 MG TABLET PO (08:55)
[2020-06-29] MEDS: clonazePAM 1 MG TABLET PO ×2 (08:55→20:42)
[2020-06-29] MEDS: LORazepam 1 MG TABLET PO (15:08)
[2020-06-29 19:05] VITALS: BP 123/76; PULSE 96; TEMP 36.7
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
[2020-06-29] MEDS: Divalproex Sodium ER 500 MG TAB.ER.24H 1000 MG PO (20:42)
[2020-06-29] MEDS: QUEtiapine Fumarate 100 MG TABLET 450 MG PO (20:44)
[2020-06-29] MEDS: traZODone HCL 50 MG TABLET PO (20:53)
[2020-06-30 06:05] VITALS: BP 109/60; PULSE 62; RESP 16; TEMP 36.3; O2SAT 97
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
[2020-06-30] MEDS: clonazePAM 1 MG TABLET PO ×2 (08:51→20:17)
[2020-06-30] MEDS: QUEtiapine Fumarate 100 MG TABLET PO (08:51)
[2020-06-30] MEDS: HaloperidoL 5 MG TABLET PO (14:11)
[2020-06-30] MEDS: LORazepam 1 MG TABLET PO (14:11)
[2020-06-30 18:00] VITALS: BP 122/87; PULSE 101; TEMP 36.3
[2020-06-30] MEDS: QUEtiapine Fumarate 400 MG TABLET PO (20:17)
[2020-06-30] MEDS: QUEtiapine Fumarate 50 MG TABLET PO (20:17)
[2020-06-30] MEDS: Divalproex Sodium ER 500 MG TAB.ER.24H 1000 MG PO (20:17)
[2020-07-01 06:20] VITALS: BP 98/59; PULSE 54; RESP 16; TEMP 36.1; O2SAT 97
[2020-07-01] MEDS: clonazePAM 1 MG TABLET PO ×2 (08:13→20:18)
[2020-07-01] MEDS: QUEtiapine Fumarate 100 MG TABLET PO (08:13)
[2020-07-01 08:35] LABS: Valproate 43.7 mcg/mL (50.0-100.0)
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
[2020-07-01] MEDS: HaloperidoL 5 MG TABLET PO (14:44)
[2020-07-01] MEDS: LORazepam 1 MG TABLET PO (14:45)
[2020-07-01 18:00] VITALS: BP 140/73; PULSE 99; TEMP 36.7
[2020-07-01] MEDS: Divalproex Sodium ER 500 MG TAB.ER.24H 1500 MG PO (20:18)
[2020-07-01] MEDS: QUEtiapine Fumarate 50 MG TABLET PO (20:18)
[2020-07-01] MEDS: QUEtiapine Fumarate 400 MG TABLET PO (20:18)
[2020-07-02 06:00] VITALS: BP 116/66; PULSE 60; TEMP 36.2; O2SAT 97
[2020-07-02 06:22] VITALS: BP 116/66; PULSE 60; RESP 16; TEMP 36.2; O2SAT 97
[2020-07-02] MEDS: QUEtiapine Fumarate 100 MG TABLET PO (09:52)
[2020-07-02] MEDS: clonazePAM 1 MG TABLET PO ×2 (09:52→20:24)
--- NOTE | 2020-07-02 10:46 | PC.NURSE ---
pt retracted 3-day notice on 07/02 and re-signed a new 3-day on 07/02. 3-day notice will be up on 07/05
[2020-07-02 11:47] VITALS: BP 143/80; PULSE 104
[2020-07-02] MEDS: cloNIDine HCL 0.1 MG TABLET PO ×2 (11:47→18:33)
[2020-07-02] MEDS: HaloperidoL 5 MG TABLET PO ×2 (11:47→18:33)
[2020-07-02 11:49] VITALS: BP 143/80; PULSE 104
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
[2020-07-02 18:33] VITALS: BP 140/72; PULSE 116
[2020-07-02 19:45] VITALS: BP 140/72; PULSE 116; TEMP 36.8
[2020-07-02] MEDS: traZODone HCL 50 MG TABLET PO (20:24)
[2020-07-02] MEDS: Divalproex Sodium ER 500 MG TAB.ER.24H 1500 MG PO (20:24)
[2020-07-02] MEDS: QUEtiapine Fumarate 400 MG TABLET PO (20:24)
[2020-07-02] MEDS: QUEtiapine Fumarate 50 MG TABLET PO (20:24)
[2020-07-03 06:25] VITALS: BP 100/58; PULSE 55; RESP 16; TEMP 37.1; O2SAT 97
[2020-07-03] MEDS: clonazePAM 1 MG TABLET PO ×2 (09:06→20:08)
[2020-07-03] MEDS: QUEtiapine Fumarate 100 MG TABLET PO (09:06)
--- NOTE | 2020-07-03 10:25 | HO.PSYCHPN ---
Subjective Subjective Date of Service: 07/03/20 Reason For Visit: Behavior Disorder Subjective Notes: 3 Day Interim History: Rai has been somewhat more open about his alcohol use. He states that he drank at least two bottles of champagne and probably some shots on the night of his admission. He states that he would consider an IOP. GUERLINE was able to speak to his parents. Please see Marinetd Carmen's note of today. They will accept him home with conditions. Medication Compliance: Yes Side effects from medications: No Attending Groups: Yes Review of Systems Acute medical concerns: No Medical Review of Systems: unchanged Mental Status Exam Mental Status Exam Patient Appearance: Well Grooomed Patient Orientation: Person and Place Level of Consciousness: Awake Patient Behavior: Guarded, Suspicious, Isolative and Poor Eye Contact Mood Description: Apathetic Affect Description: Apathetic Ability to Follow Directions: Good Speech Pattern: Appropriate Memory Description: Remote Impaired Hallucinations: None Delusions: Not Present Thought Process: Intact and Rumination Thought Content: positive for Intact, negative for Suicidal Ideation and negative for Homicidal Ideation Judgement: Poor Diagnostics Vital Signs (24Hr): Vital Signs - 24 hr 07/02/20 11:47 07/02/20 11:49 07/02/20 18:33 Temperature Pulse Rate 104 H 104 H 116 H Respiratory Rate Blood Pressure 143/80 H 143/80 H 140/72 H Pulse Oximetry 07/02/20 19:45 07/03/20 06:25 Temperature 98.2 F 98.8 F Pulse Rate 116 H 55 Respiratory Rate 16 Blood Pressure 140/72 H 100/58 L Pulse Oximetry 97 Body Mass Index 31.4 Labs Results: 06/26/20 10:39 06/26/20 10:39 Medications Medications Current Medications Generic Name Dose Route Start Last Admin Trade Name Freq PRN Reason Stop Dose Admin Acetaminophen 650 mg 06/26/20 19:53 Acetaminophen 325 Mg Tablet PO Q6H PRN Headache/Pain Mild Scale (1-3) Al Hydroxide/Mg Hydroxide 30 ml 06/26/20 19:53 Magnesium Hydrox/Alum Hydrox 30 Ml Oral.Susp PO Q6H PRN Heartburn/Nausea Clonazepam 1 mg 06/26/20 21:00 07/03/20 09:06 Clonazepam 1 Mg Tablet PO 1 mg BID MYRNA Administration Clonidine HCl 0.1 mg 06/26/20 20:11 12/14/20 18:33 Clonidine Hcl 0.1 Mg Tablet PO 0.1 mg BID PRN Administration Anxiety Protocol Divalproex Sodium 1,500 mg 07/01/20 21:00 07/02/20 20:24 Divalproex Sodium Er 500 Mg Tab.Er.24h PO 1,500 mg BEDTIME MYRNA Administration Haloperidol 5 mg 06/26/20 20:51 07/02/20 18:33 Haloperidol 5 Mg Tablet PO 5 mg Q6H PRN Administration anxiety/restlessness Hydroxyzine HCl 25 mg 06/26/20 19:53 Hydroxyzine Hcl 25 Mg Tablet PO BEDTIME PRN Anxiety Magnesium Hydroxide 30 ml 06/26/20 19:53 Milk Of Magnesia 30 Ml Oral.Susp PO DAILY PRN Constipation Nicotine 14 mg 06/27/20 09:00 07/03/20 09:07 Nicotine 14 Mg Patch.Td24 TRANSDERMA Not Given DAILY MYRNA Nicotine Polacrilex 2 mg 06/26/20 20:51 Nicotine Polacrilex 2 Mg Gum BUCCAL Q2H PRN Nicotine Cravings Quetiapine Fumarate 100 mg 06/27/20 09:00 07/03/20 09:06 Quetiapine Fumarate 100 Mg Tablet PO 100 mg DAILY MYRNA Administration Quetiapine Fumarate 400 mg 06/29/20 21:00 07/02/20 20:24 Quetiapine Fumarate 400 Mg Tablet PO 400 mg BEDTIME MYRNA Administration Quetiapine Fumarate 50 mg 06/29/20 21:00 07/02/20 20:24 Quetiapine Fumarate 50 Mg Tablet PO 50 mg BEDTIME MYRNA Administration Trazodone HCl 50 mg 06/26/20 19:53 07/02/20 20:24 Trazodone Hcl 50 Mg Tablet PO 50 mg BEDTIME PRN Administration Insomnia Trazodone HCl 50 mg 06/26/20 20:11 Trazodone Hcl 50 Mg Tablet PO BEDTIME MRX1 PRN Insomnia Allergies Allergies Allergy/AdvReac Type Severity Reaction Status Date / Time Sulfa (Sulfonamide Allergy Unknown RASH Verified 04/18/20 18:51 Antibiotics) [SULFA (SULFONAMIDE ANTIBIOTICS)] Assessment & Plan Assessment & Plan (1) Bipolar disorder: Qualifiers: Active/Remission status: currently active Current bipolar episode type: mixed Current episode severity: moderate Qualified Code(s): F31.62 - Bipolar disorder, current episode mixed, moderate Status: Acute Code(s): F31.9 - Bipolar disorder, unspecified (2) Alcohol use disorder, moderate, dependence: Status: Acute Code(s): F10.20 - Alcohol dependence, uncomplicated Assessment and Plan: CT current medication Consider IOP Anticipate DC on 07/05/20 Greater than 50% of the session was spent on counseling and/or coordination of care Patient educated on: diagnosis, medication risk/benefits and substance abuse Informed Consent: further education needed Reason for contiued inpatient stay Substantial Risk for: rapid decompensation
[2020-07-03 14:45] VITALS: BP 116/68; PULSE 118
[2020-07-03] MEDS: cloNIDine HCL 0.1 MG TABLET PO (14:45)
[2020-07-03] MEDS: HaloperidoL 5 MG TABLET PO (14:45)
[2020-07-03 14:49] VITALS: BP 116/68; PULSE 118
[2020-07-03 18:00] VITALS: BP 128/68; PULSE 81; TEMP 37.2
[2020-07-03] MEDS: QUEtiapine Fumarate 50 MG TABLET PO (20:09)
[2020-07-03] MEDS: QUEtiapine Fumarate 400 MG TABLET PO (20:09)
[2020-07-03] MEDS: Divalproex Sodium ER 500 MG TAB.ER.24H 1500 MG PO (20:09)
[2020-07-04 06:20] VITALS: BP 109/56; PULSE 63; RESP 16; TEMP 37.1; O2SAT 97
[2020-07-04] MEDS: QUEtiapine Fumarate 100 MG TABLET PO (08:59)
[2020-07-04] MEDS: clonazePAM 1 MG TABLET PO ×2 (08:59→20:05)
[2020-07-04 16:05] VITALS: BP 133/80; PULSE 113
[2020-07-04] MEDS: cloNIDine HCL 0.1 MG TABLET PO (16:05)
[2020-07-04] MEDS: HaloperidoL 5 MG TABLET PO (16:05)
[2020-07-04 16:08] VITALS: BP 133/80; PULSE 113; TEMP 36
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
[2020-07-04] MEDS: Divalproex Sodium ER 500 MG TAB.ER.24H 1500 MG PO (20:05)
[2020-07-04] MEDS: QUEtiapine Fumarate 400 MG TABLET PO (20:05)
[2020-07-04] MEDS: QUEtiapine Fumarate 50 MG TABLET PO (20:05)
[2020-07-05 06:40] VITALS: BP 113/63; PULSE 63; RESP 16; TEMP 36.8; O2SAT 97
[2020-07-05] MEDS: clonazePAM 1 MG TABLET PO (08:43)
[2020-07-05] MEDS: QUEtiapine Fumarate 100 MG TABLET PO (08:43)
[2020-07-05 08:59] LABS: Valproate 66.5 mcg/mL (50.0-100.0)
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
[2020-07-05] MEDS: HaloperidoL 5 MG TABLET PO (14:07)
[2020-07-05 14:08] VITALS: BP 136/92; PULSE 118
[2020-07-05] MEDS: cloNIDine HCL 0.1 MG TABLET PO (14:08)
== END 2020-07-05 14:51 | disposition home or self-care (01) | DRG 753 ==
LOC: HO.ED 22:58 → HO.PM5 06-26 20:21
PROVIDERS: Physician Assistant; Admitting Provider Psychiatry & Neurology Psychiatry; Emergency Provider Internal Medicine; Visit Provider Psychiatry & Neurology Psychiatry
DX: F31.62 Bipolar disorder, current episode mixed, moderate (principal); Z91.14 Patient's other noncompliance with medication regimen; F10.20 Alcohol dependence, uncomplicated; F17.210 Nicotine dependence, cigarettes, uncomplicated; Z20.828 Contact with and (suspected) exposure to other viral communicable diseases; Z88.2 Allergy status to sulfonamides; Z79.899 Other long term (current) drug therapy
CPT/HCPCS: 36415; 80048; 80076; 80164; 80320; 83690; 83735; 85025; 87635; 93005; 96372; 99232; 99285; J2060

== ENCOUNTER 2021-02-22 05:07 | Emergency (ER) | payer OTHER, SELFPAY ==
[2021-02-22 05:21] VITALS: BP 117/72; PULSE 101; RESP 18; TEMP 37.2; O2SAT 95; BMI 30.7
[2021-02-22] MEDS: clonazePAM 1 MG TABLET PO (05:40)
[2021-02-22] MEDS: Acetaminophen 325 MG TABLET 650 MG PO (05:47)
[2021-02-22 06:00] VITALS: RESP 16
[2021-02-22] MEDS: QUEtiapine Fumarate 400 MG TABLET PO (06:10)
[2021-02-22 06:22] LABS: Influenza A PCR NEGATIVE (Negative); Influenza B PCR NEGATIVE (Negative); Resp Syncy Virus RNA Qual PCR NEGATIVE (Negative); SARS COV2 PCR INHOUSE NEGATIVE (Negative)
--- NOTE | 2021-02-22 06:23 | PC.NURSE ---
Patient requested serequel 400 mg last night dose which he missed and klonopin 1mg for his anxiety,provider notified/ordered serequel 400 mg and Klonopin 1 mg/administered as ordered, pending effect, Earle cusult completed via smart-sheet/confirmed by [facility] overnight start up specialist Carleen, patient will be seen by [facility] in the morning, med rec completed, patient off most his medication but has reasonable reason which is not getting hold of his psychiatrist, patient calm and quiet at this time, will continue to monitor.
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
--- NOTE | 2021-02-22 07:45 | PC.NURSE ---
patient appears to remain at rest at present in rear common area, was sleeping and met with provider briefly, t/w was instructed to clean abrasion wounds.
[2021-02-22 11:00] VITALS: BP 112/73; PULSE 120; RESP 17; TEMP 36.3; O2SAT 97
--- NOTE | 2021-02-22 13:11 | MHC.CARE ---
CARE Team placed Pt on alert with [facility] Crisis
--- NOTE | 2021-02-22 16:35 | PC.NURSE ---
Late entry for events beginning at 1104 02/22/21. At 1104, this group underwriter was in the security office when Evangelina Vences RN notified security that it was noted patient had eloped from ED. All available staff immediately searched unit and hospital grounds for patient. Unable to locate patient at that time. At the same time, the [place] [employer] was notified of elopement, description of patient provided, and request made to escort patient back to [facility] ED should patient be located. At 1126, [place] [employer] was notified of elopement, description of patient provided, and request made to escort patient back to [facility] ED should patient be located. This group underwriter also asked that [facility] perform a well check on patient's parents at address listed in patient's chart. At 12:50 Betsy León confirmed she had contacted patient's parents with request to have patient contact and return to the [facility] ED if they have contact with him. They reported they have not had contact with pt since elopement. At 1503 [facility] called this group underwriter to confirm they have yet to encounter patient. [facility] requesting a Section 12a be completed by [facility] staff and faxed to them in the event they locate patient as this will make transfer back to hospital more clear. At 1627 Sara Rodriguez RN confirmed section 12a completed and faxed to [facility] for file. Will continue to monitor.
== END 2021-02-22 10:35 | disposition left against medical advice (07) ==
PROVIDERS: Emergency Medicine; Emergency Provider Emergency Medicine Emergency Medical Services
DX: F31.9 Bipolar disorder, unspecified (principal); R45.851 Suicidal ideations; S60.511A Abrasion of right hand, initial encounter; S40.812A Abrasion of left upper arm, initial encounter; S40.811A Abrasion of right upper arm, initial encounter; S80.812A Abrasion, left lower leg, initial encounter; S80.811A Abrasion, right lower leg, initial encounter; X58.XXXA Exposure to other specified factors, initial encounter; Y93.9 Activity, unspecified; Y92.828 Other wilderness area as the place of occurrence of the external cause; Y99.9 Unspecified external cause status; Z20.822 Contact with and (suspected) exposure to COVID-19; Z91.14 Patient's other noncompliance with medication regimen
CPT/HCPCS: 0241U; 36415; 99283; 99284

== ENCOUNTER 2021-11-11 20:43 | Inpatient (IN) | payer OTHER, SELFPAY ==
[2021-11-11 20:49] VITALS: BP 144/89; PULSE 88; RESP 20; TEMP 36.6; O2SAT 100; BMI 34.2
--- NOTE | 2021-11-11 21:09 | ED_ITS ---
HPI - Psych General Chief Complaint: Psychiatric Symptoms Stated Complaint: crisis Time Seen by Provider: 11/11/21 21:09 Source: patient Mode of arrival: ambulatory Limitations: no limitations History of Present Illness HPI Narrative: Patient feels that he is in a psychologic rabbit hole. He is on clonazepam for anxiety. Feels that his life is full of stress and he has PTSD. At times he feels like things are too much but he does not have a plan to hurt himself. This is the time of year that is near his birthday and around the time of the murder of his friends. MD complaint: feels depressed Onset (ago): week(s) Duration: constant History of same: Yes Relieving factors: other (clonezapam and alcohol) Exacerbating factors: other (his birthday, anniversary of the of his friends) Context: recent alcohol abuse Associated psychiatric symptoms: suicidal ideation, racing thoughts and auditory hallucinations Treatments prior to arrival: none Related Data Previous Rx's Medication Instructions Recorded chlorpromazine 100 mg tablet 200 mg PO TID #90 tab 11/20/21 clonazepam 1 mg tablet 1 mg PO TID #90 tab 11/20/21 famotidine 20 mg tablet 20 mg PO BID #60 tab 11/20/21 quetiapine 100 mg tablet 100 mg PO DAILY #30 tab 11/20/21 quetiapine 400 mg tablet 400 mg PO BEDTIME #30 tab 11/20/21 trazodone 50 mg tablet 50 mg PO BEDTIME PRN #30 tab 11/20/21 Allergies Allergy/AdvReac Type Severity Reaction Status Date / Time Sulfa (Sulfonamide Allergy Unknown RASH Verified 04/18/20 18:51 Antibiotics) [SULFA (SULFONAMIDE ANTIBIOTICS)] sulfamethoxazole Allergy Unknown Unknown Unverified 11/13/21 06:54 [From Bactrim] trimethoprim [From Bactrim] Allergy Unknown Unknown Unverified 11/13/21 06:54 gluten Allergy Unknown Verified 11/13/21 06:55 Review of Systems Constitutional: Constitutional: Reports no additional constitutional complaints Eyes: Eyes: Reports no additional eye complaints ENT: Denies dizziness Cardiovascular: Cardiovascular: Reports no additional cardiovascular complaints Respiratory: Respiratory: Reports as per HPI Gastrointestinal: Gastrointestinal: Reports no additional gastrointestinal complaints Musculoskeletal: Musculoskeletal: Reports no additional musculoskeletal complaints Integumentary/Breasts: Skin/Breast: Denies rash Neurologic: Reports system reviewed and no additional complaints, except as documented, Denies dizziness and Denies Sensory deficit (Neuro) Psychiatric: Psychiatric: Reports anxiety [facility] Past Medical History Medical History Medical non-compliance Social History Social History Household Members: Family Household Members Other:: Mother, Father Housing: House Do you presently have visiting nurse or other home services: No Alcohol intake: current Alcohol intake frequency: 3 or more drinks per day Alcohol type: beer and hard liquor Patient Tobacco Use Status: Tobacco use Unknown Cigarette Packs Per Day: 1 Cigarettes Per Day: 20.0 Second Hand Smoke Exposure: No Substance Use Type: Former Substance User, Marijuana and Prescription Drugs service: No Sexual orientation: Straight/Heterosexual Physical Exam Vital Signs: Vital Signs: Last Vital Signs Temp 97.6 F 11/20/21 08:13 Pulse 98 11/20/21 08:13 Resp 16 11/20/21 08:13 BP 125/72 11/20/21 08:13 Pulse Ox 97 11/20/21 08:13 BMI result Body Mass Index 34.2 Const: General: healthy appearing Nutritional Appearance: average body habitus Orientation/consciousness: oriented to person and patient oriented x3 Limitations: no limitations HEENT: Head: Yes normal to inspection Ears: external ears normal General nose exam: Normal external nose present Mouth: Normal oral and palatal mucosa present and oropharynx normal Throat: Yes posterior oropharynx normal Eyes: General: appearance normal, both eyes and all related structures Neck: Other: supple Neck: Yes normal visual inspection Chest: Chest palpation & inspection: normal inspection of the chest Resp: Auscultation: clear to auscultation bilaterally Cardio: Jugular venous distension: no JVD Rate: regular rate Rhythm: regular rhythm Heart sounds: S1 normal heart sound present and S2 normal heart sound present GI: Inspection: Yes normal to inspection Palpation (GI): Soft to palpation, nontender and No hepatosplenomegaly present Auscultation: normal bowel sounds : General: Yes no CVA tenderness Back/Spine/Pelvis: Back: no CVA tenderness Skin: General skin exam: no rashes or lesions noted Neuro: General: oriented to person and patient oriented x3 Cranial nerves: Yes CN's II-XII intact bilaterally Motor exam (neuro): 5/5 motor strength present throughout Sensory Exam: No Sensory deficit (Neuro) Extrem: General: Yes normal to inspection Psych: Other: disorganized Course Reevaluation(s) Reevaluation #1: Patient placed in physician observation at 11:59pm The indication for observation is that the patient needs more time to see if his depression improves or he will need to be admitted. At this time the patient is well developed well nourished, lungs clear, CV RRR, abd nontender, neuro is intact. Patient very disorganized Time: 23:59 MDM - Psych Lab Data Result diagrams: 11/11/21 21:08 11/11/21 21:08 Labs: Lab Results 11/11/21 11/11/21 11/11/21 Range/Units 21:08 21:08 21:08 WBC 7.7 (4.8-10.8) X10*3/uL RBC 5.73 (4.60-5.80) X10*6/uL Hgb 17.9 (14.0-18.0) g/dl Hct 51.5 (42.0-52.0) % MCV 89.9 (80.0-98.0) fL MCH 31.2 (27.0-33.0) pg MCHC 34.8 (31.0-36.0) g/dl RDW 11.8 (11.0-16.0) % Plt Count 188 (160-400) X10*3/uL MPV 11.4 (9.4-12.4) fL Immature Gran % (Auto) 0.4 (0.0-0.4) % Neut % (Auto) 73.8 H (45-73) % Lymph % (Auto) 18.8 L (20-40) % [place] % (Auto) 5.7 (2-11) % Eos % (Auto) 0.8 (0-4) % Baso % (Auto) 0.5 (0-2) % Lymph # (Auto) 1.5 (1.2-4.9) X10*3/uL [place] # (Auto) 0.4 (0.1-1.2) X10*3/uL Eos # (Auto) 0.1 (0.0-0.4) X10*3/uL Baso # (Auto) 0.0 (0.0-0.2) X10*3/uL Abs Immat Gran (auto) 0.03 (0.00-0.03) X10*3/uL Absolute Neuts (auto) 5.7 (2.0-8.3) x10*3/uL Absolute Nucleated RBC 0.000 (0.0-0.012) X10*3/uL Nucleated RBC % (auto) 0.0 (0.0-0.2) /100WBC Sodium 138 (135-145) mmol/L Potassium 4.4 (3.3-5.1) mmol/L Chloride 106 (96-108) mmol/L Carbon Dioxide 22 (22-29) mmol/L Anion Gap 14 (12-20) BUN 19 H (9-16) mg/dL Creatinine 1.14 (0.5-1.4) mg/dL Estim Creat Clear Calc 125.1 Estimated GFR > 60 Random Glucose 103 (60-115) mg/dL Calcium 10.1 D (8.4-10.2) mg/dL Salicylates < 5.0 L (15-30) mg/dL Urine Opiates Screen (Not Detect) Urine Fentanyl Screen (Not Detect) Acetaminophen < 1 (<30) mcg/mL Ur Barbiturates Screen (Not Detect) Valproic Acid < 2.0 L (50.0-100.0) mcg/mL Ur Phencyclidine Scrn (Not Detect) Ur Amphetamines Screen (Not Detect) U Benzodiazepines Scrn (Not Detect) Urine Cocaine Screen (Not Detect) U Marijuana (THC) Screen (Not Detect) Ethyl Alcohol mg/dL COVID-19 (JUSTIN) Negative (Negative) COVID-19 Clin Com See Note 11/11/21 11/11/21 Range/Units 21:08 23:53 WBC (4.8-10.8) X10*3/uL RBC (4.60-5.80) X10*6/uL Hgb (14.0-18.0) g/dl Hct (42.0-52.0) % MCV (80.0-98.0) fL MCH (27.0-33.0) pg MCHC (31.0-36.0) g/dl RDW (11.0-16.0) % Plt Count (160-400) X10*3/uL MPV (9.4-12.4) fL Immature Gran % (Auto) (0.0-0.4) % Neut % (Auto) (45-73) % Lymph % (Auto) (20-40) % [place] % (Auto) (2-11) % Eos % (Auto) (0-4) % Baso % (Auto) (0-2) % Lymph # (Auto) (1.2-4.9) X10*3/uL [place] # (Auto) (0.1-1.2) X10*3/uL Eos # (Auto) (0.0-0.4) X10*3/uL Baso # (Auto) (0.0-0.2) X10*3/uL Abs Immat Gran (auto) (0.00-0.03) X10*3/uL Absolute Neuts (auto) (2.0-8.3) x10*3/uL Absolute Nucleated RBC (0.0-0.012) X10*3/uL Nucleated RBC % (auto) (0.0-0.2) /100WBC Sodium (135-145) mmol/L Potassium (3.3-5.1) mmol/L Chloride (96-108) mmol/L Carbon Dioxide (22-29) mmol/L Anion Gap (12-20) BUN (9-16) mg/dL Creatinine (0.5-1.4) mg/dL Estim Creat Clear Calc Estimated GFR Random Glucose (60-115) mg/dL Calcium (8.4-10.2) mg/dL Salicylates (15-30) mg/dL Urine Opiates Screen Not Detected (Not Detect) Urine Fentanyl Screen Not Detected (Not Detect) Acetaminophen (<30) mcg/mL Ur Barbiturates Screen Not Detected (Not Detect) Valproic Acid (50.0-100.0) mcg/mL Ur Phencyclidine Scrn Not Detected (Not Detect) Ur Amphetamines Screen POSITIVE H (Not Detect) U Benzodiazepines Scrn Not Detected (Not Detect) Urine Cocaine Screen Not Detected (Not Detect) U Marijuana (THC) Screen POSITIVE H (Not Detect) Ethyl Alcohol < 10 mg/dL COVID-19 (JUSTIN) (Negative) COVID-19 Clin Com Discharge Plan Discharge Clinical Impression: Schizo affective schizophrenia Patient Disposition: Admitted As Inpatient Interventions: Admission Worksheet (ED) Last Done: 11/12/21 23:00 Discharge Date/Time: 11/12/21 23:02
[2021-11-11 21:13] LABS: MANUAL DIFF FLAG NO
[2021-11-11 21:17] LABS: Basophils Percent Auto 0.5 % (0-2); Eosinophils Absolute Auto 0.1 X10*3/uL (0.0-0.4); Eosinophils Percent Auto 0.8 % (0-4); Hematocrit 51.5 % (42.0-52.0); Hemoglobin 17.9 g/dl (14.0-18.0); Imm Gran Abs Auto 0.03 X10*3/uL (0.00-0.03); Imm Gran Pct Auto 0.4 % (0.0-0.4); Lymphocytes Absolute Auto 1.5 X10*3/uL (1.2-4.9); Lymphocytes Percent Auto 18.8 % (20-40); Mean Corpuscular HGB Conc 34.8 g/dl (31.0-36.0); Mean Corpuscular Hemoglobin 31.2 pg (27.0-33.0); Mean Corpuscular Volume 89.9 fL (80.0-98.0); Mean Platelet Volume 11.4 fL (9.4-12.4); Monocytes Absolute Auto 0.4 X10*3/uL (0.1-1.2); Monocytes Percent Auto 5.7 % (2-11); Neutrophils Absolute Auto 5.7 x10*3/uL (2.0-8.3); Neutrophils Percent Auto 73.8 % (45-73); Platelet Count 188 X10*3/uL (160-400); Red Blood Count 5.73 X10*6/uL (4.60-5.80); Red Cell Distribution Width 11.8 % (11.0-16.0); White Blood Count 7.7 X10*3/uL (4.8-10.8)
[2021-11-11 21:29] LABS: Ethanol < 10 mg/dL
[2021-11-11 21:31] LABS: Anion Gap 14 (12-20); Blood Urea Nitrogen 19 mg/dL (9-16); Calcium 10.1 mg/dL (8.4-10.2); Carbon Dioxide 22 mmol/L (22-29); Chloride 106 mmol/L (96-108); Creatinine Clr Calc Pharmacy 125.1; Estimated Glomerular Filt Rate > 60; Glucose Random 103 mg/dL (60-115); Potassium 4.4 mmol/L (3.3-5.1); Sodium 138 mmol/L (135-145)
[2021-11-11 21:36] LABS: COVID-19 Test Negative (Negative); IDNOW Serial# 08D9AD1C
[2021-11-11 21:42] LABS: Acetaminophen LAB < 1 mcg/mL (<30); Salicylate < 5.0 mg/dL (15-30)
[2021-11-11 21:54] LABS: Valproate < 2.0 mcg/mL (50.0-100.0)
--- NOTE | 2021-11-12 | ECG_ITS ---
Test Reason : medical clearance Blood Pressure : / mmHG Vent. Rate : 073 BPM Atrial Rate : 073 BPM P-R Int : 158 ms QRS Dur : 090 ms QT Int : 406 ms P-R-T Axes : 067 028 052 degrees QTc Int : 447 ms Sinus rhythm with marked sinus arrhythmia Otherwise normal ECG When compared with ECG of 26-JUN-2020 10:09, No significant change was found Referred By: Anna Crane Electronically Signed By:SHARON KANG
--- NOTE | 2021-11-12 | ECG_ITS ---
Test Reason : MEDCLEARANCE Blood Pressure : / mmHG Vent. Rate : 057 BPM Atrial Rate : 057 BPM P-R Int : 168 ms QRS Dur : 094 ms QT Int : 436 ms P-R-T Axes : 060 -08 042 degrees QTc Int : 424 ms Sinus bradycardia with sinus arrhythmia Normal EKG When compared with ECG of 12-NOV-2021 12:36, No significant change was found Referred By: Darshana Michaud Electronically Signed By:SHARON KANG
[2021-11-12 00:19] LABS: Amphetamine Screen Urine POSITIVE (Not Detect); Barbiturates, Urine Not Detected (Not Detect); Benzodiazepines Screen Urine Not Detected (Not Detect); Cannabinoid Screen Urine POSITIVE (Not Detect); Cocaine Screen Urine Not Detected (Not Detect); Fentanyl, urine Not Detected (Not Detect); Opiate Screen Urine Not Detected (Not Detect); Phencyclidine Screen Urine Not Detected (Not Detect)
[2021-11-12 00:27] VITALS: BP 123/85; PULSE 90; RESP 18; TEMP 37.1; O2SAT 97
[2021-11-12] MEDS: clonazePAM 1 MG TABLET PO (01:43)
--- NOTE | 2021-11-12 06:36 | PC.NURSE ---
Patient [facility] shift [facility], mostly self dialoguing, engaged well with BHN but got upset with BHN, Klonopin 1 mg administered at 0143 as ordered with + effect, disposition per [facility] section 12 inpatient bed search, med rec completed/pending provider's approval, behavior non concerning at thsi time, thought content paranoid, VSS, will continue to monitor.
--- NOTE | 2021-11-12 07:18 | PC.NURSE ---
patient not asleep at present appearently per security shift supervisor staff patient slept poorly patient asking us to look up patents for the govt to control minds with radio towers etc etc. patient does not seem excited to eat breakfast
[2021-11-12 07:34] VITALS: BP 142/92; PULSE 82; RESP 17; TEMP 36.7; O2SAT 96
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
[2021-11-12] MEDS: LORazepam 1 MG TABLET 2 MG PO (11:36)
[2021-11-12 23:00] VITALS: BP 143/87; PULSE 80; RESP 18; TEMP 36.6; O2SAT 99
[2021-11-12] MEDS: QUEtiapine Fumarate 400 MG TABLET PO (23:27)
[2021-11-13] MEDS: LORazepam 1 MG TABLET 2 MG PO ×2 (01:15→16:32)
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
--- NOTE | 2021-11-13 07:13 | PHA.MEDREC ---
Pharmacy Consult ? Medication Reconciliation Pharmacy has completed the medication reconciliation. No remarkable issues. Geovanna Dodson, SandorD
[2021-11-13 09:25] LABS: Cholesterol 182 mg/dL; HDL Cholesterol 41 mg/dL; LDL Cholesterol Calculated 120 mg/dl; Triglycerides 107 mg/dL
[2021-11-13 09:32] LABS: Estimated Average Glucose 100 mg/dL; Hemoglobin A1c % 5.1 %
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
[2021-11-13 11:02] VITALS: BP 118/68; PULSE 95; RESP 17; TEMP 36.6; O2SAT 96
[2021-11-13] MEDS: clonazePAM 1 MG TABLET PO ×2 (11:48→21:28)
[2021-11-13] MEDS: chlorproMAZINE HCl 100 MG TABLET 200 MG PO (16:32)
--- NOTE | 2021-11-13 17:14 | PC.NURSE ---
At approximately 1605 pt eloped from the unit. Pt was escorted back by staff. Pt continues to state that he will leave the unit again if he is not discharged by thursday. Pt states that next time he will use the other door to the unit to leave. PT continues to repeat that he wants to be discharged by thursday, threatening that he will act out and attempt to elope if not discharged, stating I got out once i'll do it again . Pt offered PRN medication, requested thorazine. Provider notified. PT accepted PO medication and reported that he is appreciative of the care that he is recieving but that he is bored and wants to leave
[2021-11-13 21:24] VITALS: BP 122/64; PULSE 112; TEMP 36.6; O2SAT 95
[2021-11-13] MEDS: QUEtiapine Fumarate 400 MG TABLET PO (21:28)
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
[2021-11-14] MEDS: chlorproMAZINE HCl 100 MG TABLET 200 MG PO ×2 (10:14→15:35)
[2021-11-14] MEDS: clonazePAM 1 MG TABLET PO ×3 (10:14→20:15)
[2021-11-14 10:52] VITALS: BP 131/73; PULSE 137; RESP 17; TEMP 36.3; O2SAT 95
[2021-11-14] MEDS: Magnesium Hydrox/Alum Hydrox 30 ML ORAL.SUSP PO (10:54)
[2021-11-14] MEDS: Famotidine 20 MG TABLET PO (11:39)
[2021-11-14] MEDS: QUEtiapine Fumarate 400 MG TABLET PO (20:15)
[2021-11-14 20:18] VITALS: BP 118/58; PULSE 85; TEMP 36.6; O2SAT 96
[2021-11-15] MEDS: clonazePAM 1 MG TABLET PO ×3 (09:49→22:55)
[2021-11-15] MEDS: chlorproMAZINE HCl 100 MG TABLET 200 MG PO ×4 (09:52→22:55)
[2021-11-15 10:00] VITALS: BP 121/58; PULSE 106; TEMP 36.4; O2SAT 95
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
[2021-11-15] MEDS: LORazepam 1 MG TABLET 2 MG PO (12:03)
[2021-11-15 22:52] VITALS: BP 137/84; PULSE 119; RESP 18; TEMP 36.6; O2SAT 92
[2021-11-15] MEDS: QUEtiapine Fumarate 400 MG TABLET PO (22:55)
[2021-11-16 06:00] VITALS: BP 144/90; PULSE 127; RESP 16; TEMP 36.7; O2SAT 96
[2021-11-16] MEDS: clonazePAM 1 MG TABLET PO ×3 (09:53→20:22)
[2021-11-16] MEDS: chlorproMAZINE HCl 100 MG TABLET 200 MG PO ×3 (09:53→20:22)
[2021-11-16] MEDS: QUEtiapine Fumarate 100 MG TABLET PO ×2 (11:41→22:12)
[2021-11-16] MEDS: hydrOXYzine HCL 25 MG TABLET PO (11:43)
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
[2021-11-16] MEDS: QUEtiapine Fumarate 400 MG TABLET PO (20:22)
[2021-11-16 20:23] VITALS: BP 102/64; PULSE 110; RESP 17; TEMP 36.7; O2SAT 95
[2021-11-16] MEDS: traZODone HCL 50 MG TABLET PO ×2 (21:25→22:12)
[2021-11-17 06:00] VITALS: BP 123/84; PULSE 124; RESP 16; TEMP 36.4; O2SAT 93
[2021-11-17] MEDS: QUEtiapine Fumarate 100 MG TABLET PO (09:43)
[2021-11-17] MEDS: chlorproMAZINE HCl 100 MG TABLET 200 MG PO ×3 (09:44→20:59)
[2021-11-17] MEDS: clonazePAM 1 MG TABLET PO ×3 (09:44→21:00)
[2021-11-17] MEDS: Milk of Magnesia 30 ML ORAL.SUSP PO (09:46)
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
[2021-11-17 18:00] VITALS: BP 132/86; PULSE 118; RESP 16; TEMP 36.4; O2SAT 95
[2021-11-17] MEDS: QUEtiapine Fumarate 400 MG TABLET PO (21:00)
[2021-11-17] MEDS: traZODone HCL 50 MG TABLET PO (21:00)
[2021-11-17] MEDS: hydrOXYzine HCL 25 MG TABLET PO (21:00)
[2021-11-17] MEDS: Famotidine 20 MG TABLET PO (21:00)
[2021-11-18 06:00] VITALS: BP 107/63; PULSE 86; RESP 16; TEMP 36.3; O2SAT 97
[2021-11-18] MEDS: LORazepam 1 MG TABLET 2 MG PO ×3 (07:05→21:05)
[2021-11-18] MEDS: chlorproMAZINE HCl 100 MG TABLET 200 MG PO ×5 (07:05→21:05)
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
[2021-11-18] MEDS: clonazePAM 1 MG TABLET PO ×2 (09:56→20:18)
[2021-11-18] MEDS: Famotidine 20 MG TABLET PO ×2 (09:56→20:03)
[2021-11-18] MEDS: QUEtiapine Fumarate 100 MG TABLET PO (09:56)
[2021-11-18 18:00] VITALS: BP 118/77; PULSE 118; RESP 18; TEMP 36.6; O2SAT 96
[2021-11-18] MEDS: QUEtiapine Fumarate 400 MG TABLET PO (20:03)
[2021-11-18] MEDS: traZODone HCL 50 MG TABLET PO ×2 (20:03→21:06)
[2021-11-18] MEDS: hydrOXYzine HCL 25 MG TABLET PO (20:03)
[2021-11-19 08:00] VITALS: BP 118/72; PULSE 101; RESP 17; TEMP 36.2; O2SAT 97
[2021-11-19] MEDS: clonazePAM 1 MG TABLET PO ×3 (08:10→20:21)
[2021-11-19] MEDS: Famotidine 20 MG TABLET PO (08:10)
[2021-11-19] MEDS: QUEtiapine Fumarate 100 MG TABLET PO ×2 (08:10→21:44)
[2021-11-19] MEDS: chlorproMAZINE HCl 100 MG TABLET 200 MG PO ×2 (08:11→14:09)
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
[2021-11-19] MEDS: QUEtiapine Fumarate 400 MG TABLET PO (20:21)
[2021-11-19] MEDS: traZODone HCL 50 MG TABLET PO ×2 (20:21→21:44)
[2021-11-19 20:22] VITALS: BP 111/80; PULSE 115; TEMP 36.4; O2SAT 95
[2021-11-19] MEDS: hydrOXYzine HCL 25 MG TABLET PO (21:44)
[2021-11-20] MEDS: clonazePAM 1 MG TABLET PO (08:10)
[2021-11-20] MEDS: chlorproMAZINE HCl 100 MG TABLET 200 MG PO (08:10)
[2021-11-20] MEDS: Famotidine 20 MG TABLET PO (08:10)
[2021-11-20] MEDS: QUEtiapine Fumarate 100 MG TABLET PO (08:10)
[2021-11-20 08:13] VITALS: BP 125/72; PULSE 98; RESP 16; TEMP 36.4; O2SAT 97
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
== END 2021-11-20 12:25 | disposition home or self-care (01) | DRG 750 ==
LOC: HO.ED 21:30 → HO.PADLT16 11-12 22:40
PROVIDERS: Admitting Provider Psychiatry & Neurology Psychiatry; Emergency Provider Emergency Medicine; Visit Provider Social Worker
DX: F25.0 Schizoaffective disorder, bipolar type (principal); Z20.822 Contact with and (suspected) exposure to COVID-19; Z88.2 Allergy status to sulfonamides; Z79.899 Other long term (current) drug therapy
CPT/HCPCS: 36415; 80048; 80061; 80143; 80164; 80179; 80307; 82077; 83036; 85025; 87635; 93005; 99285

== ENCOUNTER 2022-01-10 14:38 | Emergency (ER) | payer OTHER, SELFPAY ==
--- NOTE | 2022-01-10 14:42 | ECG_ITS ---
Test Reason : MED CLEARANCE Blood Pressure : / mmHG Vent. Rate : 088 BPM Atrial Rate : 100 BPM P-R Int : 158 ms QRS Dur : 092 ms QT Int : 366 ms P-R-T Axes : 058 007 024 degrees QTc Int : 442 ms Sinus rhythm with marked sinus arrhythmia Otherwise normal ECG When compared with ECG of 12-NOV-2021 22:04, Vent. rate has increased BY 31 BPM Referred By: Maggi Champagne Electronically Signed By:RYANNE MARIE MD
[2022-01-10 14:50] VITALS: BP 130/90; PULSE 112; O2SAT 96
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
[2022-01-10 15:33] VITALS: BP 139/85; PULSE 94; RESP 18; TEMP 36.7; O2SAT 97; BMI 33.3
[2022-01-10] MEDS: diphenhydrAMINE HCL 25 MG TABLET 50 MG PO (15:39)
[2022-01-10] MEDS: HaloperidoL 5 MG TABLET 10 MG PO (15:39)
[2022-01-10] MEDS: LORazepam 1 MG TABLET 2 MG PO (15:39)
[2022-01-10 15:44] LABS: MANUAL DIFF FLAG NO
[2022-01-10 15:49] LABS: Basophils Percent Auto 0.2 % (0-2); Eosinophils Percent Auto 0.2 % (0-4); Hematocrit 50.7 % (42.0-52.0); Hemoglobin 17.3 g/dl (14.0-18.0); Imm Gran Abs Auto 0.03 X10*3/uL (0.00-0.03); Imm Gran Pct Auto 0.3 % (0.0-0.4); Lymphocytes Absolute Auto 1.3 X10*3/uL (1.2-4.9); Lymphocytes Percent Auto 12.3 % (20-40); Mean Corpuscular HGB Conc 34.1 g/dl (31.0-36.0); Mean Corpuscular Hemoglobin 30.8 pg (27.0-33.0); Mean Corpuscular Volume 90.2 fL (80.0-98.0); Mean Platelet Volume 11.1 fL (9.4-12.4); Monocytes Absolute Auto 0.9 X10*3/uL (0.1-1.2); Neutrophils Absolute Auto 8.6 x10*3/uL (2.0-8.3); Platelet Count 176 X10*3/uL (160-400); Red Blood Count 5.62 X10*6/uL (4.60-5.80); Red Cell Distribution Width 12.1 % (11.0-16.0); White Blood Count 10.9 X10*3/uL (4.8-10.8)
[2022-01-10 16:02] LABS: Alanine Aminotransferase 33 U/L (0-40); Albumin Level 5.4 g/dL (3.5-5.0); Alkaline Phosphatase 127 U/L (39-117); Anion Gap 16 (12-20); Aspartate Amino Transferase 41 U/L (5-37); Bilirubin Total 1.5 mg/dL (0.0-1.0); Blood Urea Nitrogen 24 mg/dL (9-16); Calcium 10.2 mg/dL (8.4-10.2); Carbon Dioxide 24 mmol/L (22-29); Chloride 100 mmol/L (96-108); Creatinine Clr Calc Pharmacy 132.7; Estimated Glomerular Filt Rate > 60; Glucose Random 119 mg/dL (60-115); Magnesium 2.1 mg/dL (1.6-2.6); Potassium 4.3 mmol/L (3.3-5.1); Sodium 136 mmol/L (135-145); Total Protein 8.5 g/dL (6.5-8.0)
[2022-01-10 16:06] LABS: Ethanol < 10 mg/dL
--- NOTE | 2022-01-10 16:08 | PC.NURSE ---
pt restless, pacing, hyperverbal - talking to himself, pt currently calm and cooperative, hx aggressive/combative outbursts. labs drawn by tech, pt medicated w PO meds. pending lab results.
[2022-01-10 16:14] LABS: COVID-19 Test Negative (Negative); IDNOW Serial# 16C4AD1C
--- NOTE | 2022-01-10 16:54 | PC.NURSE ---
plan to treat pt in [facility], ivf pending staff for 1:1.
[2022-01-10] MEDS: 0.9 % Sodium Chloride 1,000 ML 999 ML IV ×3 (17:17→19:48)
--- NOTE | 2022-01-10 17:17 | PC.NURSE ---
20G IV placed left hand, 2L NaCL running, pt on 1:1 observation.
--- NOTE | 2022-01-10 17:50 | PC.NURSE ---
per provider, run fld 1L at a time and check ck between bags.
--- NOTE | 2022-01-10 19:05 | PC.NURSE ---
1L finished, labs drawn, 2nd L running. pt resting quietly.
[2022-01-10 19:12] LABS: Appearance Urine CLEAR; Color Urine STRAW; Glucose Urine UA NEG (NEG); Leukocyte Esterase Urine NEG (NEG); Nitrite Urine NEG (NEG); Specific Gravity - Urine <= 1.005 (1.005-1.025); Urine Blood NEG (NEG); Urine Ketones 5 MG/DL (NEG); Urine Protein NEG (NEG-TRACE)
[2022-01-10 19:33] LABS: Amphetamine Screen Urine Not Detected (Not Detect); Barbiturates, Urine Not Detected (Not Detect); Benzodiazepines Screen Urine Not Detected (Not Detect); Cannabinoid Screen Urine POSITIVE (Not Detect); Cocaine Screen Urine Not Detected (Not Detect); Fentanyl, urine POSITIVE (Not Detect); Opiate Screen Urine POSITIVE (Not Detect); Phencyclidine Screen Urine Not Detected (Not Detect)
[2022-01-10] MEDS: chlorproMAZINE HCl 100 MG TABLET 200 MG PO (21:31)
[2022-01-10] MEDS: QUEtiapine Fumarate 400 MG TABLET PO (21:32)
[2022-01-10] MEDS: Famotidine 20 MG TABLET PO (21:32)
[2022-01-10 21:43] VITALS: BP 135/85; PULSE 106; RESP 18; TEMP 36.4; O2SAT 96
[2022-01-11] VITALS: BP 139/79; PULSE 84; RESP 16; TEMP 36.7; O2SAT 96
[2022-01-11 00:40] LABS: Anion Gap 12 (12-20); Blood Urea Nitrogen 17 mg/dL (9-16); Calcium 8.6 mg/dL (8.4-10.2); Carbon Dioxide 22 mmol/L (22-29); Chloride 108 mmol/L (96-108); Creatinine Clr Calc Pharmacy 169.5; Estimated Glomerular Filt Rate > 60; Glucose Random 88 mg/dL (60-115); Sodium 138 mmol/L (135-145)
--- NOTE | 2022-01-11 06:22 | PC.NURSE ---
Patient slept though the night, no distress observed/reported, received three 1000 ml of NS/medically cleared, behavior non concerning, [facility] referral completed/confirmed/pending ETA, med rec completed/SEP updated, patient is medication compliant, EKG pending due to patient's refusal, VSS, will continue to monitor.
[2022-01-11] MEDS: clonazePAM 1 MG TABLET PO ×2 (10:37→15:37)
[2022-01-11] MEDS: QUEtiapine Fumarate 100 MG TABLET PO (10:47)
--- NOTE | 2022-01-11 14:12 | PC.NURSE ---
Patient refused thorazine this AM and this afternoon, patient reports this medication makes him groggy . Patient eval by [facility] this AM, report that they would like to touch base with patient's family then he may be clear for d/c. Patient notified of plan. Denies HI, not manic, behavior appropriate.
[2022-01-11 14:34] VITALS: BP 117/80; PULSE 88; RESP 18; TEMP 36.8; O2SAT 97
--- NOTE | 2022-01-11 16:23 | PC.NURSE ---
call placed to [facility] per pa request- pd notfied of dc of pt and no restraining orders placed for pt to not go home. encouraging pt to stay with third libertarian as he has been and not return to parents home.
--- NOTE | 2022-01-11 16:36 | PC.NURSE ---
Discussion with this RN, Rafaela BURDEN, and patient: Patient explicitly notified to not return to parents' home. Patient verbalizes understanding stating I have no desire to go near there, I don't even want to be in the same town, I'll be staying in [place] . Discussed plan to obtain clothing from home, patient states that he will meet his mother in a public place or have her drop them off. Patient relieved to be discharged. Behavior appropriate. No concerns for discharge at this time. To be discharged with friend, Shaji [phone].
== END 2022-01-11 16:59 | disposition home or self-care (01) ==
PROVIDERS: Nurse Practitioner Family; Physician Assistant; Emergency Provider Emergency Medicine Emergency Medical Services
DX: F25.9 Schizoaffective disorder, unspecified (principal); T67.5XXA Heat exhaustion, unspecified, initial encounter; M62.82 Rhabdomyolysis; X58.XXXA Exposure to other specified factors, initial encounter; Y93.9 Activity, unspecified; Y92.9 Unspecified place or not applicable; Y99.9 Unspecified external cause status; Z20.822 Contact with and (suspected) exposure to COVID-19; F17.210 Nicotine dependence, cigarettes, uncomplicated; Z71.6 Tobacco abuse counseling; Z79.899 Other long term (current) drug therapy
CPT/HCPCS: 36415; 80048; 80053; 80307; 81003; 82077; 82550; 83735; 85025; 87635; 93005; 96360; 96361; 99284; 99285; Q0163

== ENCOUNTER 2022-02-15 00:02 | Emergency (ER) | payer OTHER, SELFPAY | END 2022-02-15 01:24 | disposition left against medical advice (07) | PROVIDERS: Emergency Provider Emergency Medicine | DX: S89.90XA Unspecified injury of unspecified lower leg, initial encounter (principal); X58.XXXA Exposure to other specified factors, initial encounter; Y93.9 Activity, unspecified; Y92.9 Unspecified place or not applicable; Y99.9 Unspecified external cause status ==

== ENCOUNTER 2022-04-11 09:12 | Outpatient (REF) | payer OTHER, SELFPAY ==
[2022-04-11 10:09] LABS: COVID-19 Test Negative (Negative); IDNOW Serial# 9DB6401D
== END 2022-04-11 09:13 | disposition home or self-care (01) ==
LOC: HO.LAB 09:12
PROVIDERS: Visit Provider Internal Medicine
DX: Z20.822 Contact with and (suspected) exposure to COVID-19 (principal)
CPT/HCPCS: 87635; C9803

== ENCOUNTER 2022-04-14 09:30 | Outpatient (REF) | payer OTHER, SELFPAY ==
[2022-04-15 08:10] LABS: Amphetamine Screen Urine Not Detected (Not Detect); Barbiturates, Urine Not Detected (Not Detect); Benzodiazepines Screen Urine Not Detected (Not Detect); Cannabinoid Screen Urine POSITIVE (Not Detect); Cocaine Screen Urine Not Detected (Not Detect); Fentanyl, urine Not Detected (Not Detect); Opiate Screen Urine Not Detected (Not Detect); Phencyclidine Screen Urine Not Detected (Not Detect)
== END 2022-04-14 09:31 | disposition home or self-care (01) ==
LOC: HO.PHPLNP 09:30
PROVIDERS: Visit Provider Nurse Practitioner Psychiatric/Mental Health
DX: F11.20 Opioid dependence, uncomplicated (principal)
CPT/HCPCS: 80307

== ENCOUNTER 2022-04-16 08:00 | Outpatient (RCR) | payer OTHER, SELFPAY ==
--- NOTE | 2022-04-10 09:36 | PC.NURSE ---
Rai called and spoke to staff stating he will not be able to attend the program today as he has a fever.
[2022-04-14 10:00] VITALS: BP 110/82; PULSE 80; TEMP 37
[2022-04-14 14:57] VITALS: BMI 33.2
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
--- NOTE | 2022-04-17 10:19 | PC.NURSE ---
I called and left a message for pt's therapist at [facility] in [place], Samuel Smith ([phone]). I let him know about pt's clinical presentation in groups and about his discharge from [facility].
--- NOTE | 2022-04-17 10:26 | PC.NURSE ---
I called the [facility] ([phone], option 3) and left a message for Tona Latif, pt's radio officer. I let her know about pt's discharge from [facility] and about his clinical presentation in the program.
== END 2022-04-16 23:59 | disposition home or self-care (01) ==
LOC: HO.PHPA 08:00
PROVIDERS: Visit Provider Psychiatry & Neurology Psychiatry
DX: F25.9 Schizoaffective disorder, unspecified (principal); F12.90 Cannabis use, unspecified, uncomplicated; Z79.899 Other long term (current) drug therapy
CPT/HCPCS: 90791; 90792; 90853

== ENCOUNTER 2022-04-16 12:18 | Emergency (ER) | payer OTHER, SELFPAY ==
--- NOTE | 2022-04-16 12:33 | ED_ITS ---
HPI - Psych General Stated Complaint: Crisis Time Seen by Provider: 04/16/22 12:23 Source: patient Mode of arrival: ambulatory Limitations: no limitations History of Present Illness HPI Narrative: Patient comes to emergency room as a voluntary walk-in from [facility]. Patient was in a group activity, seems that the patient wanted to voice his opinion, patient feels that everybody was expressing their opinion but they would not allow him to do so. Seems that patient started talking loudly and the group [employer] global product leadership thought he was being disruptive, and needed evaluation. Patient denies suicidal or homicidal ideation. Patient states he does not want to hurt anybody. Patient states he is trying to help people. Patient states that his plan is to take notes and then address his thoughts individually to the people who want to hear him. Related Data Home Medications Medication Instructions Recorded Confirmed clonazepam 1 mg tablet 1 mg PO TID PRN Anxiety 01/10/22 04/14/22 Previous Rx's Medication Instructions Recorded quetiapine 400 mg tablet 400 mg PO BEDTIME #30 tabs 11/20/21 Allergies Allergy/AdvReac Type Severity Reaction Status Date / Time Sulfa (Sulfonamide Allergy Unknown RASH Verified 01/10/22 15:14 Antibiotics) [SULFA (SULFONAMIDE ANTIBIOTICS)] sulfamethoxazole Allergy Unknown Unknown Verified 01/10/22 15:14 [From Bactrim] trimethoprim [From Bactrim] Allergy Unknown Unknown Verified 01/10/22 15:14 gluten Allergy Unknown Verified 01/10/22 15:14 Review of Systems Review of Systems: Constitutional : No Weight loss, No Fever, No Chills, No Night Sweats, No Fatigue, No Malaise ENT/Mouth : No Hearing loss, No Ear Pain, No Nasal Congestion, No Sinus Pain, No Hoarseness, No sore throat, No Rhinorrhea, No Swallowing Difficulty Eyes: No Eye Pain, No Swelling, No Redness, No Foreign Body, No Discharge, No Vision Changes Cardiovascular : No Chest Pain, No SOB, No Dyspnea on Exertion, No Orthopnea, No Edema, No Palpitations Respiratory : No Cough, No Sputum, No Wheezing, No Smoke Exposure, No Dyspnea Gastrointestinal : No Nausea, No Vomiting, No Diarrhea, No Constipation, No abdominal Pain, No Hematochezia, No Melena Genitourinary : no irregular bleeding, No Dysuria, No Urinary Frequency, No Hematuria, No Urinary Incontinence, No Urgency, No Flank Pain, No Urinary Flow Changes, No Hesitancy Musculoskeletal : No joint pain, No Myalgias, No Joint Swelling Skin : No Skin Lesions, No rash Neuro : No Weakness, No Numbness, No Paresthesias, No Loss of Consciousness, No Dizziness, No Headache Psych : No Anxiety/Panic, No Depression, no SI, no HI, no violent thoughts, feels a bit frustrated that he cannot voice his opinion Heme/Lymph: No Bruising, No Bleeding,No Lymphadenopathy Endocrine : No Polyuria, No Polydipsia, No Temperature Intolerance [facility] Past Medical History Medical History CVA (cerebral vascular accident) Medical non-compliance Social History Social History Household Members: Family Household Members Other:: Mother, Father Housing: House Do you presently have visiting nurse or other home services: No Alcohol intake: current Alcohol intake frequency: 3 or more drinks per day Alcohol type: beer and hard liquor Patient Tobacco Use Status: Never used Tobacco Cigarette Packs Per Day: 1 Cigarettes Per Day: 20.0 Second Hand Smoke Exposure: No Substance Use Type: Former Substance User, Marijuana and Prescription Drugs Advance Directives: No Advance Directives Information Provided: No service: No Sexual orientation: Straight/Heterosexual Physical Exam Const: Other: Appearance: Alert. Oriented X3. No acute distress. Eyes: Pupils equal, round and reactive to light. ENT: Pharynx normal. Neck: Normal inspection. Neck supple. No lymph nodes noted. No crepitus CVS: Normal heart rate and rhythm. Pulses normal. Normal S1 and S2 Respiratory: No respiratory distress. Breath sounds normal. No Wheezing. No rales Abdomen: Soft and nontender. No rigidity. No distention. Skin: Skin warm and dry. Normal skin color. Normal skin turgor. Extremities: No lower extremity edema. No Lacerations. No Rash Neuro: Oriented X 3. No motor deficit. No sensory deficit. Moving all extremities. No slurred speech. CN 2 through 12 grossly intact Psych: calm, cooperative, normal affect, denies SI or HI, speech is a bit tange ntial but still able to hold a fairly normal conversation Course Course Course Narrative: Patient is not suicidal or homicidal, patient is calm, cooperative. Patient would like to return to his group activity. As noted above, patient understands that he was being destructive, his new plan is to take nodes, and then address his opinion individually to the group members the would like to hear his advice. There is no need to Section 12 the patient. [facility] saw the patient, they know him very well, they state that this is the best that they have seen the patient Discharge Plan Discharge Clinical Impression: Anxiety Patient Disposition: Home, Self-Care Instructions: Anxiety (ED) Additional Instructions: Please follow-up with your primary care physician tomorrow. If you have any worsening or new symptoms, please return to the emergency room or call 911 Prescriptions: No Action quetiapine 400 mg Tablet 400 mg PO BEDTIME Qty: 30 0RF clonazepam 1 mg tablet 1 mg PO TID PRN (Reason: Anxiety)
[2022-04-16 12:36] VITALS: PULSE 16; BMI 26.4
== END 2022-04-16 12:50 | disposition home or self-care (01) ==
PROVIDERS: Emergency Provider Emergency Medicine; PCP Family Medicine
DX: F41.9 Anxiety disorder, unspecified (principal); F25.0 Schizoaffective disorder, bipolar type; Z79.899 Other long term (current) drug therapy
CPT/HCPCS: 99282

== ENCOUNTER 2024-01-11 19:04 | Emergency (ER) | payer OTHER, SELFPAY ==
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
[2024-01-11 19:15] VITALS: BP 133/77; BP 140/80; PULSE 80; PULSE 91; RESP 18; TEMP 36.6; O2SAT 94; O2SAT 99; BMI 33.0
[2024-01-11] MEDS: LORazepam 1 MG TABLET 2 MG PO (19:25)
--- NOTE | 2024-01-11 19:35 | PC.NURSE ---
pt labs drawn by luis ~[facility] nurse
[2024-01-11 19:38] LABS: MANUAL DIFF FLAG NO
[2024-01-11 19:42] LABS: Basophils Percent Auto 0.5 % (0-2); Eosinophils Absolute Auto 0.1 X10*3/uL (0.0-0.4); Eosinophils Percent Auto 1.2 % (0-4); Hematocrit 45.8 % (42.0-52.0); Hemoglobin 16.2 g/dl (14.0-18.0); Imm Gran Abs Auto 0.02 X10*3/uL (0.00-0.03); Imm Gran Pct Auto 0.2 % (0.0-0.4); Lymphocytes Percent Auto 23.6 % (20-40); Mean Corpuscular HGB Conc 35.4 g/dl (31.0-36.0); Mean Corpuscular Hemoglobin 31.2 pg (27.0-33.0); Mean Corpuscular Volume 88.1 fL (80.0-98.0); Mean Platelet Volume 10.9 fL (9.4-12.4); Monocytes Absolute Auto 0.7 X10*3/uL (0.1-1.2); Monocytes Percent Auto 8.1 % (2-11); Neutrophils Absolute Auto 5.7 x10*3/uL (2.0-8.3); Neutrophils Percent Auto 66.4 % (45-73); Platelet Count 160 X10*3/uL (160-400); Red Cell Distribution Width 12.1 % (11.0-16.0); White Blood Count 8.6 X10*3/uL (4.8-10.8)
[2024-01-11 20:13] LABS: Alanine Aminotransferase 30 U/L (0-40); Albumin Level 4.9 g/dL (3.5-5.0); Alkaline Phosphatase 106 U/L (39-117); Amylase 46 U/L (28-100); Anion Gap 19 (12-20); Aspartate Amino Transferase 48 U/L (5-37); Bilirubin Direct 0.3 mg/dL (0.0-0.5); Bilirubin Total 0.9 mg/dL (0.0-1.0); Blood Urea Nitrogen 24 mg/dL (9-16); Calcium 9.7 mg/dL (8.4-10.2); Carbon Dioxide 24 mmol/L (22-29); Chloride 104 mmol/L (96-108); Estimated Glomerular Filt Rate > 60; Ethanol < 10 mg/dL; Glucose Random 73 mg/dL (60-115); Lipase 14 U/L (8-78); Potassium 4.9 mmol/L (3.3-5.1); Sodium 142 mmol/L (135-145); Total Protein 7.8 g/dL (6.5-8.0)
--- NOTE | 2024-01-11 20:17 | PC.NURSE ---
pt pacing throughout the ED, pt stating he was very anxious, pt asking to discharge. pt then left the ED without waiting for paperwork, provider was notified pt being discharged without paperwork.
[2024-01-11 20:19] VITALS: BP 133/77; PULSE 91; RESP 18; TEMP 36.6; O2SAT 94
[2024-01-12 08:33] LABS: HBS Num1 > 1000.00 mIU/mL (0-7.99); HBsAGNum1 0.23 S/CO (0.00-0.99); HIV AB/AG Nonreactive (Nonreactive); HIV Num 1 0.06 S/CO (0.00-0.99); Hepatitis B Core Antibody Nonreactive (Nonreactive); Hepatitis B Surface Antigen Negative (Negative); ~HepC Num1 0.14 S/CO (0.00-0.79); ~Hepatitis B Surface Antibody REACTIVE (Nonreactive); ~Hepatitis C Antibody Nonreactive (Nonreactive)
== END 2024-01-11 20:20 | disposition home or self-care (01) ==
PROVIDERS: Physician Assistant Medical; Emergency Provider Internal Medicine; PCP Family Medicine
DX: S51.832A Puncture wound without foreign body of left forearm, initial encounter (principal); Y28.9XXA Contact with unspecified sharp object, undetermined intent, initial encounter; Y93.9 Activity, unspecified; Y92.9 Unspecified place or not applicable; Y99.8 Other external cause status; Z79.899 Other long term (current) drug therapy; Z20.828 Contact with and (suspected) exposure to other viral communicable diseases
CPT/HCPCS: 36415; 80048; 80076; 80307; 82150; 83690; 85025; 86704; 86706; 86803; 87340; 87389; 99282; 99283

== ENCOUNTER 2025-04-14 06:50 | Inpatient (IN) | payer MEDICARE, MEDICAID, SELFPAY ==
[2025-04-14] VITALS (8 sets, daily range): BP systolic 114–135; BP diastolic 69–94; PULSE 62–110; RESP 16–18; TEMP 36.6–38.3; O2SAT 95–98; BMI 30.3
--- NOTE | ~2025-04-14 | CT_ITS ---
EXAMINATION: CT LUMBAR SPINE WITH IV CONTRAST CLINICAL INFORMATION: Lumbar pain. History of IV drug use. Concerning abscess COMPARISON: None available. TECHNIQUE: Contiguous axial images through the lumbar spine from T12 to the mid sacrum using 2 mm collimation following the IV contrast administration total of 85 cc Omnipaque 350 strength without reported immediate complications. Sagittal and coronal reformatted images acquired. Total DLP: [address] examination was performed using dose optimization techniques as appropriate, variously including the following: *Automated exposure control *Adjustment of mA and/or kV according to patient size (this includes techniques or standardized protocols for targeted exams where dose is matched to indication/reason for exam; i.e. extremities or head) *Use of iterative reconstruction technique FINDINGS: I do not see proper IV contrast enhancement in the organs and vascular structures in the retroperitoneum. There is no reformatted images on soft tissue algorithm. Endplate sclerosis subchondral cyst formation anterior marginal osteophyte formation decreased intervertebral disc height and chondrocalcinosis at the L5-S1. Small anterior marginal osteophyte formation at L2-3. No acute cortical disruption or gross malalignment in the axial skeleton. T12: Intact. L1: Intact. L2: Intact. Facet joint hypertrophy and laterally. L3: Intact. Bilateral facet joint hypertrophy and vacuum phenomenon. L4: Intact. Bilateral facet joint hypertrophy and vacuum phenomenon. L5: Intact. Bilateral facet joint hypertrophy. No gross prevertebral compartment hematoma and or fluid collection. Central spinal canal and bilateral neuroforamina narrowing on a degenerative basis from L3-4 to L5-S1. No aneurysm, abdominal aorta. No hydronephrosis in either kidney. 9 mm hypodensity in the posterior midportion left kidney. No nodular lesions in the adrenal glands. No gross lymphadenopathy in the retroperitoneum. Collapsed appearance of the rectosigmoid colon. Appendix is normal. Probable bony island lesions in the femoral heads. Mild degenerative changes in the coxofemoral joints. CT/CT lumbar spine w IV con IMPRESSION: Multilevel spondylosis pronounced at L5-S1 without acute fracture or gross listhesis. No gross fluid collection in the prevertebral compartment. Inadequate evaluation of the epidural compartment of the central spinal canal. Discitis osteomyelitis at L5-S1 cannot be entirely excluded. Consider IV contrast enhanced MRI lumbar spine. Electronically signed by: Daren Pond MD 04/14/2025 08:55 AM EDT RP
--- NOTE | ~2025-04-14 | MR_ITS ---
CLINICAL HISTORY: spinal abscess screen, lumbar back pain, C F osteo --- Additional Notes or Special Instructions: CT lumbar spine cannot rule out discitis osteo at L5-S1 MR lumbar spine with and without gadolinium Comparison: CT/SR - CT LUMBAR SPINE WITH IV CONTRAST - 04/14/25 08:28 EDT Findings: There is fluid signal within the L5-S1 intervertebral disc with corresponding hyperenhancement. There is also mild hyperenhancement within the adjacent prevertebral and perivertebral soft tissues. No definite destructive changes of the opposing L5 or S1 endplates. Cortices appear intact. No rim enhancing fluid collection within the spinal canal or epidural space. Normal position and appearance of the conus. IMPRESSION: Fluid signal and hyperenhancement of the L5-S1 disc space with mild edema in the opposing endplates. No corresponding destructive changes. Findings are mildly suspicious for discitis/osteomyelitis. Correlate with CRP and CBC. This document has been electronically signed by: Oleg Robles MD on 04/14/2025 19:33:21
--- NOTE | 2025-04-14 07:08 | ED.GENADULT ---
HPI - General Adult General Chief complaint: Back Pain/Injury Stated complaint: BACK PAIN Time Seen by Provider: 04/14/25 07:08 Source: patient, EMS, RN notes reviewed and old records reviewed Mode of arrival: EMS Limitations: no limitations History of Present Illness ED Provider: BERNARD Crowell HPI narrative: 35-year-old male with medical history of CVA 2015, bipolar disorder, schizoaffective disorder, polysubstance use disorder presents to the ED due to 6 days of lumbar back pain. Patient states lumbar back pain started Sunday 04/08 while doing jenise work but was able to finish the job. Patient states yesterday, he slipped on a tarp in his yard in the rain and landed on the L knee and felt a tightness in his lower back which exacerbated the pain, then his cat got out last night and had to vanessa the animal into the road and had to move out of the way from a car quickly further injuring his back. Patient states he has been abstaining from drug use over the past 9 years but back pain has become so intense this week he has been using IV heroin for pain relief. Patient states he used IV drugs yesterday. Denies fevers, nausea, vomiting, headache, visual changes, chest pain, SOB Related Data Home Medications ?Medication ?Instructions ?Recorded ?Confirmed clonazepam 1 mg tablet 1 mg PO TID PRN Anxiety 01/10/22 04/14/25 ibuprofen 200 mg tablet (Advil) 600 mg PO Q8H PRN Pain 04/14/25 04/14/25 Previous Rx's ?Medication ?Instructions ?Recorded quetiapine 400 mg tablet 400 mg PO BEDTIME #30 tabs 11/20/21 Allergies Allergy/AdvReac Type Severity Reaction Status Date / Time Sulfa (Sulfonamide Allergy Unknown RASH Verified 04/14/25 07:16 Antibiotics) (SULFA (SULFONAMIDE ANTIBIOTICS)) sulfamethoxazole (From Allergy Unknown Unknown Verified 04/14/25 07:16 Bactrim) trimethoprim (From Bactrim) Allergy Unknown Unknown Verified 04/14/25 07:16 gluten Allergy Unknown Verified 04/14/25 07:16 Review of Systems Review of Systems: CONST: Negative for fever, body aches and chills. HENT: Negative for neck pain/stiffness, headache, congestion, sore throat, swelling. EYES: Negative for discharge/pain or vision changes. RESP: Negative for cough/hemoptysis and shortness of breath. CV: Negative chest pain, difficulty breathing, palpitations. ABD: Negative pain, nausea, vomiting. : Negative increase frequency, dysuria, blood in urine or stool. MUSC: Negative for muscle aches, edema. POS lumbar back pain SKIN: Negative rash, lesions/sores. NEURO: Negative headache, dizziness, weakness. [facility] Past Medical History Attestation statement: The following information was validated with the patient. Source: old records reviewed and nursing notes reviewed Medical History CVA (cerebral vascular accident) Medical non-compliance Social History Social History Household Members: Family Household Members Other:: Mother, Father Housing: House Do you presently have visiting nurse or other home services: No Alcohol intake: current Alcohol intake frequency: holidays/special occasions only Alcohol type: beer and hard liquor Comment: PT ASLEEP Patient Tobacco Use Status: Never used Tobacco Cigarette Packs Per Day: 1 Cigarettes Per Day: 20.0 Smoked in Last 30 Days: Yes Second Hand Smoke Exposure: No Substance Use Type: IV Drugs Advance Directives: No Advance Directives Information Provided: Yes service: No Sexual orientation: Straight/Heterosexual Physical Exam ED Vital Signs: Vital Signs - 24 hr 04/14/25 07:12 04/14/25 08:00 04/14/25 11:00 Temperature 97.8 F 97.8 F Pulse Rate 92 79 62 Respiratory Rate 16 17 16 Blood Pressure 135/73 114/80 117/69 Pulse Oximetry 95 95 95 Oxygen Delivery Method Room Air Room Air Room Air 04/14/25 16:27 04/14/25 17:27 04/14/25 20:48 Temperature 98.3 F 100.0 F Pulse Rate 90 93 97 Respiratory Rate 16 16 16 Blood Pressure 132/76 133/77 134/74 Pulse Oximetry 97 96 97 Oxygen Delivery Method Room Air Room Air Room Air BMI result Body Mass Index 30.3 GENERAL APPEARANCE: ?AxOx4 no acute distress. HEENT: ?NC, AT. MMM. EOMI, clear conjunctiva, oropharynx clear. NECK: ?Supple without lymphadenopathy.? No stiffness or restricted ROM. HEART:? Normal rate and regular rhythm, normal S1/S2, no m/r/g LUNGS:? CTAB, moving air well. No crackles or wheezes are heard. ABDOMEN: ?Soft, nontender, nondistended with good bowel sounds heard. BACK: No CVAT, no obvious deformity. TTP of midline lumbar spine and sacrum, TTP of B/L lumbar paraspinal muscles and L side SI joint, no overlying skin changes or ecchymosis EXTREMITIES: ?Without cyanosis, clubbing or edema. NEUROLOGICAL: ?Grossly nonfocal. Alert and oriented, moving all 4 extremities. Ambulating with slow steady gait due to lumbar pain Skin: ?Warm and dry without any rash. Course Course Course Narrative: March 24, 2025, 6:00 p.m. received sign-out with the patient in stable condition pending reassessment. Patient is currently MRI. March 24, 2025, 7:45 p.m. MRI returned, concern for possible discitis or osteomyelitis. CRP is elevated at 4.73. Given these findings, patient will be brought into the hospital for further evaluation and management. This was discussed with the patient who agrees with plan. March 24, 2025, 8:20 p.m., message to neurosurgery and hospitalist Dr. Ocasio for transfer of care. Medications Administered Generic Name Dose Route Start Last Admin Trade Name Freq PRN Reason Stop Dose Admin Acetaminophen 975 mg 04/14/25 21:41 04/14/25 22:00 Acetaminophen 325 Mg Tablet PO 975 mg Q6H PRN Administration Pain, Mild 1-3,fever,headache Enoxaparin Sodium 40 mg 04/14/25 22:00 04/14/25 21:56 Enoxaparin Sodium 40 Mg/0.4 Ml Syringe SUBCUT 40 mg Q24H MYRNA Administration Cefepime HCl 2 gm in 50 mls @ 100 mls/hr 04/14/25 22:00 04/14/25 21:56 Maxipime IV 100 mls/hr Q8H MYRNA Administration Discontinued Medications Generic Name Dose Route Start Last Admin Trade Name Freq PRN Reason Stop Dose Admin Clonazepam 1 mg 04/14/25 10:42 04/14/25 10:56 Clonazepam 1 Mg Tablet PO 04/14/25 10:43 1 mg ONCE ONE Administration Diazepam 5 mg 04/14/25 21:34 04/14/25 21:56 Diazepam 10 Mg/2 Ml Cartridge IVPUSH 04/14/25 21:35 5 mg ONCE ONE Administration Gadobutrol 10 ml 04/14/25 19:03 04/14/25 19:03 Gadobutrol 10 Ml Vial IVPUSH 04/14/25 19:04 10 ml ONCE ONE Administration Hydromorphone HCl 2 mg 04/14/25 10:42 04/14/25 10:57 Hydromorphone Hcl 2 Mg/Ml Vial IVPUSH 04/14/25 10:43 2 mg ONCE ONE Administration Protocol Acetaminophen 1,000 mg in 100 mls @ 400 mls/hr 04/14/25 07:21 04/14/25 08:30 Ofirmev IV 04/14/25 07:35 Infused ONCE ONE Infusion Vancomycin HCl 2,000 mg in 500 mls @ 250 mls/hr 04/14/25 09:47 04/14/25 14:45 Vancomycin/Ns IV 04/14/25 11:46 Infused ONCE ONE Infusion Cefepime HCl 2 gm in 50 mls @ 100 mls/hr 04/14/25 09:47 04/14/25 10:56 Maxipime IV 04/14/25 10:16 Infused ONCE ONE Infusion Iohexol 100 ml 04/14/25 08:40 04/14/25 08:40 Iohexol 350 Mg/Ml 100 Ml Infus..Btl IV 04/14/25 08:41 85 ml ONCE ONE Administration Ketorolac Tromethamine 15 mg 04/14/25 07:21 04/14/25 08:03 Ketorolac Tromethamine 15 Mg/Ml Vial IVPUSH 04/14/25 07:22 15 mg ONCE ONE Administration Ketorolac Tromethamine 30 mg 04/14/25 13:49 04/14/25 13:55 Ketorolac Tromethamine 30 Mg/Ml Vial IVPUSH 04/14/25 13:50 30 mg ONCE ONE Administration Midazolam HCl 4 mg 04/14/25 13:56 04/14/25 14:03 Midazolam Hcl 2 Mg/2 Ml Vial IVPUSH 04/14/25 13:57 4 mg ONCE ONE Administration Midazolam HCl 4 mg 04/14/25 17:15 04/14/25 17:21 Midazolam Hcl 2 Mg/2 Ml Vial IVPUSH 04/14/25 17:16 4 mg ONCE ONE Administration Morphine Sulfate 4 mg 04/14/25 07:34 04/14/25 08:04 Morphine Sulfate 4 Mg/Ml Cartridge IVPUSH 04/14/25 07:35 4 mg ONCE ONE Administration Protocol Morphine Sulfate 4 mg 04/14/25 12:37 04/14/25 12:41 Morphine Sulfate 4 Mg/Ml Cartridge IVPUSH 04/14/25 12:38 4 mg ONCE ONE Administration Protocol Medical Decision Making Medical Decision Making MDM Narrative: 35-year-old male with medical history of CVA 2014, bipolar disorder, schizoaffective disorder, polysubstance use disorder presents to the ED due to 6 days of lumbar back pain, which started after doing intense physical jenise work, a mechanical slip and fall on a wet tarp, and running after his cat who got out and ran into the road causing him to have to twist quickly to get out of the way of a vehicle. Patient woke up this morning with worsening lumbar back pain. Patient does have history of IVDU, and has been using recently to manage back pain. VSS, BP of 114/80, pulse rate of 79, respiratory rate of 17, afebrile with oral temp of 97.8?, O2 saturation 95% on room air. On physical exam patient is quite tender along the midline lumbar spine and sacrum region and R side lumbar paraspinal muscles, ROM limited with flexion, extension, and lateral bending due to severe pain, patient is able to ambulate but is ambulating with a slow and steady gait due to lumbar pain. No overlying skin changes, ecchymosis, edema or erythema of the lumbar region. Plan: Labs, CT lumbar spine Labs without leukocytosis/leukopenia, left shift of 78.1, H&H stable, mild transaminitis with AST of 50, ALT of 41, CRP elevated at 4.7, no electrolyte abnormality. CT lumbar spine can not rule out diskitis osteomyelitis of L4-S1 and is recommending MR imaging. MRI ordered now and awaiting results. VSS, afebrile, will obtain lactic and blood cultures. At 9:50am on 04/14/25 I suspected infection and started IV antibiotics of vancomycin and cefepime. Does not meet sepsis criteria at this time. Patient was unable to tolerate MRI of lumbar spine. Pain is persistent has recieved 1 g IV Tylenol, 15 mg IV Toradol, 30 mg IV Toradol, 4 mg IV morphine x2, 1 mg clonazepam, 4 mg of Versed to manage pain and anxiety. Currently awaiting MRI which will be done at 5:15pm Differential Diagnosis Differential Diagnoses: The differential diagnosis associated with the presentation includes Spinal epidural abscess Discitis Disc herniation Lumbar fracture Lumbar strain Admission/Observation Consideration of admission/observation: Escalation of care including admission/observation considered Lab Data [facility] Lab Attestation statement: I reviewed the patient's lab results. 04/14/25 07:54 04/14/25 07:54 Labs: Lab Results 04/14/25 04/14/25 Range/Units 07:54 10:02 WBC 8.3 (4.8-10.8) X10*3/uL RBC 4.50 L (4.60-5.80) X10*6/uL Hgb 13.9 L (14.0-18.0) g/dl Hct 40.3 L (42.0-52.0) % MCV 89.6 (80.0-98.0) fL MCH 30.9 (27.0-33.0) pg MCHC 34.5 (31.0-36.0) g/dl RDW 12.3 (11.0-16.0) % Plt Count 156 L (160-400) X10*3/uL MPV 10.5 (9.4-12.4) fL Immature Gran % (Auto) 0.5 H (0.0-0.4) % Neut % (Auto) 78.1 H (45-73) % Lymph % (Auto) 10.1 L (20-40) % Hickman % (Auto) 11.2 H (2-11) % Eos % (Auto) 0.0 (0-4) % Baso % (Auto) 0.1 (0-2) % Lymph # (Auto) 0.8 L (1.2-4.9) X10*3/uL Hickman # (Auto) 0.9 (0.1-1.2) X10*3/uL Eos # (Auto) 0.0 (0.0-0.4) X10*3/uL Baso # (Auto) 0.0 (0.0-0.2) X10*3/uL Abs Immat Gran (auto) 0.04 H (0.00-0.03) X10*3/uL Absolute Neuts (auto) 6.5 (2.0-8.3) x10*3/uL Absolute Nucleated RBC 0.000 (0.0-0.012) X10*3/uL Nucleated RBC % (auto) 0.0 (0.0-0.2) /100WBC ESR 11 (0-15) MM/HR Sodium 137 (135-145) mmol/L Potassium 4.0 (3.3-5.1) mmol/L Chloride 102 (96-108) mmol/L Carbon Dioxide 28 (22-29) mmol/L Anion Gap 11 L (12-20) BUN 19 H (9-16) mg/dL Creatinine 0.86 (0.5-1.4) mg/dL Estim Creat Clear Calc 150.6 Estimated GFR > 60 Random Glucose 118 H (60-115) mg/dL Lactic Acid 0.5 (0.5-2.0) mmol/L Calcium 9.9 (8.4-10.2) mg/dL Magnesium 2.0 (1.6-2.6) mg/dL Total Bilirubin 0.8 (0.0-1.0) mg/dL AST 50 H (5-37) U/L ALT 41 H (0-40) U/L Alkaline Phosphatase 137 H (39-117) U/L C-Reactive Protein 4.73 H (< or = 0.50) mg/dL Total Protein 7.3 (6.5-8.0) g/dL Albumin 4.6 (3.5-5.0) g/dL Independent Interpretation I performed an independent interpretation of an: CT Scan Interpretation: I independently interpreted the CT lumbar spine which shows questionable osteomyelitis at the L4-S1 region, I agree with the radiologist's interpretation. Radiology Impression Discussion of test interpretation with radiology: I have reviewed the radiologist's reading. Radiologist Impression: CT lumbar spine FINDINGS: I do not see proper IV contrast enhancement in the organs and vascular structures in the retroperitoneum. There is no reformatted images on soft tissue algorithm. Endplate sclerosis subchondral cyst formation anterior marginal osteophyte formation decreased intervertebral disc height and chondrocalcinosis at the L5-S1. Small anterior marginal osteophyte formation at L2-3. No acute cortical disruption or gross malalignment in the axial skeleton. T12: Intact. L1: Intact. L2: Intact. Facet joint hypertrophy and laterally. L3: Intact. Bilateral facet joint hypertrophy and vacuum phenomenon. L4: Intact. Bilateral facet joint hypertrophy and vacuum phenomenon. L5: Intact. Bilateral facet joint hypertrophy. No gross prevertebral compartment hematoma and or fluid collection. Central spinal canal and bilateral neuroforamina narrowing on a degenerative basis from L3-4 to L5-S1. No aneurysm, abdominal aorta. No hydronephrosis in either kidney. 9 mm hypodensity in the posterior midportion left kidney. No nodular lesions in the adrenal glands. No gross lymphadenopathy in the retroperitoneum. Collapsed appearance of the rectosigmoid colon. Appendix is normal. Probable bony island lesions in the femoral heads. Mild degenerative changes in the coxofemoral joints. CT/CT lumbar spine w IV con IMPRESSION: Multilevel spondylosis pronounced at L5-S1 without acute fracture or gross listhesis. No gross fluid collection in the prevertebral compartment. Inadequate evaluation of the epidural compartment of the central spinal canal. Discitis osteomyelitis at L5-S1 cannot be entirely excluded. Consider IV contrast enhanced MRI lumbar spine. Electronically signed by: Daren Pond MD 04/14/2025 08:55 AM EDT Dictated By: Daren Winkler MD Signed By: <Electronically signed by Daren Koo MD in OV> 04/14/25 0855 Independent Historian Clinical information obtained from an independent historian. History obtained from or confirmed by: EMS External Record Review External record reviewed: Inpatient record, Office record and Outpatient record Chronic Conditions Patient?s care impacted by: Other (CVA 2015, bipolar disorder, schizoaffective disorder, polysubstance use disorder) Social Determinants Patient?s care significantly limited by Social Determinants of Health including: Other Social Determinant of Health Discharge Plan Discharge Clinical Impression: Back pain, Discitis Patient Disposition: Admitted As Inpatient
--- OUTSIDE RECORDS SUMMARY | 2025-04-14 07:26 | XMS_ITS | Encounter Summary ---
Author Organization [facility] Address [address] [place] [id number] Phone Care Team Providers Care Solar Design Engineer Name Role Phone Unavailable Primary Care Provider Unavailabl e Encounter Details Date Type Department Care Team (Late st Contact Info) Description 05/21/2017 Conversion Encounter [facility] - [address] [address] Social History Tobacco Use Types Packs/Day Years Used Date Smoking Tobacco: Never Assessed Sex and Gender Information Value Date Recorded Sex Assigned at Not on file Legal Sex Male 4:31 PM EDT Gender Identity Not on file Sexual Orientation Not on file documented as of this encounter Plan of Treatment Not on file documented as of this encounter Visit Diagnoses Not on filedocumented in this encounter
--- OUTSIDE RECORDS SUMMARY | 2025-04-14 07:26 | XMS_ITS | Encounter Summary ---
Author Organization [facility] Address [address] [facility] [address] [place] [address] Phone Care Team Providers Care Barn Operator Name Role Phone Ubaldo Lutz MD Primary Care Provider [phone] Esther Feliciano MD Primary Care Provider Unknown, Unknown Primary Care Provider Cheyenne rojas Pcp, Unknown Primary Care Provider UnavailEsther Wright MD Primary Care Provider Tommy Best MD Primary Care Provider + Encounter Details Date Type Department Care Team (Late st Contact Info) Description 01/29/2018 Procedure Pass [facility], [address] [address] Social History Tobacco Use Types Packs/Day Years Used Date Smoking Tobacco: Never Smokeless Tobacco: Never Alcohol Use Standard Drinks/Week Comments Yes 3 (1 standard drink = 0.6 oz pur e alcohol) socially Sex and Gender Information Value Date Recorded Sex Assigned at Male 01/28/2018 10:43 AM EDT Legal Sex Male 9:06 PM EDT Gender Identity Male 01/28/2018 10:43 AM EDT Sexual Orientation Straight 01/28/2018 10 :43 AM EDT documented as of this encounter Last Filed Vital Signs Vital Sign Reading Time Taken Comments Blood Pressure - - Pulse - - Temperature - - Respiratory Rate - - Oxygen Saturation - - Inhaled Oxygen Concentration - - Weight 102.1 kg (225 lb) 01/29/2018 1:46 PM EDT Height 182.9 cm (6') 01/29/2018 1:46 PM EDT Body Mass Index 30.52 01/29/2018 1:46 PM EDT documented in this encounter Plan of Treatment Not on file documented as of this encounter Visit Diagnoses Not on filedocumented in this encounter Additional Health Concerns Infection Onset Date Last Indicated Resolved Time MRSA 02/02/2018 02/02/2018 09/03/2022 1:41 AM EST documented as of this encounter Care Teams Barn Operator Relationship Specialty Start Date End Date Ubaldo Lutz MD PCP - General Internal Medicine 01/28/18 04/11/19 Eshter Feliciano MD [address] [place] [id number] [email or web address] PCP - General Internal Medicine 04/12/19 09/26/19 Unknown, Unknown, [address] [place] [id number] PCP - General 09/27/19 10/02/19 Pcp, Unknown PCP - General 10/03/19 04/22/20 Esther Feliciano MD [address] [place] [address] [email or web address] PCP - General Internal Medicine 04/23/20 11/20/22 Tommy Best MD [address] [place] [id number] PCP - General Family Medicine 11/21/22 documented as of this encounter Additional Source Comments The information contained in this document represents components of the legal health record. It is not the complete legal health record.[facility]
--- OUTSIDE RECORDS SUMMARY | 2025-04-14 07:26 | XMS_ITS | Encounter Summary ---
Author Organization [facility] Address [address] [place] [phone] Phone Care Team Providers Care Felt Machine Mechanic Name Role Phone Esther Feliciano MD Primary Care Provider [phone] Tommy Best MD Primary Care Provider + Encounter Details Date Type Department Care Team (Late st Contact Info) Description 10/16/2020 Procedure Pass [facility], Ct Scan - 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 Wish to be (Past 1 Month) No 021 7:33 PM EDT Jonah Amaya, RN 2. Non-Specific Active Suici aubrey Thoughts (Past 1 Month) No 10/16/2020 7:33 PM EDT Jonah Amaya, RN 6. Suicidal Behavior (Lifetime) No 7:33 PM EDT Jonah Amaya, RN documented as of this encounter Plan of Treatment Not on file documented as of this encounter Visit Diagnoses Not on filedocumented in this encounter Additional Health Concerns Infection Onset Date Last Indicated Resolved Time MRSA 02/02/2018 02/02/2018 09/03/2022 1:41 AM EST Assessment Noted Time PHQ-2 Depression Total Score: 0 04/12/20 19 1:17 PM EDT documented as of this encounter Care Teams Felt Machine Mechanic Relationship Specialty Start Date End Date Esther Feliciano MD [address] [place] [address], [address] [place] [address] [email or web address] PCP - General Internal Medicine 04/23/20 11/20/22 Tommy Best MD [address] [place] [id number] PCP - General Family Medicine 11/21/22 documented as of this encounter Additional Source Comments The information contained in this document represents components of the legal health record. It is not the complete legal health record.[facility]
--- OUTSIDE RECORDS SUMMARY | 2025-04-14 07:26 | XMS_ITS | Encounter Summary ---
Author Organization [facility] Address [address] [place] [place] [address] Phone Care Team Providers Care Senior Data Developer Name Role Phone Esther Feliciano MD Primary Care Provider [phone] Tommy Best MD Primary Care Provider + Encounter Details Date Type Department Care Team (Late st Contact Info) Description 10/16/2020 Procedure Pass [facility], Ct Scan - [facility] [address] [place] [address] Social History Tobacco Use Types Packs/Day Years [...] 7:33 PM EDT Zaire Amaya RN * [place] Suicide Severity Rating Scale (Screener/Recent Self-Report) Question [...] documented as of this encounter Care Teams Senior Data Developer Relationship Specialty Start Date End Date Esther Feliciano MD [address] [place] [address], [address] [place] [address] [email or web address] PCP - General Internal Medicine 04/23/20 11/20/22 Tommy Best MD [address] [place] [id number] PCP - General Family Medicine 11/21/22 documented as of this encounter Additional Source Comments The information contained in this document represents components of the legal health record. It is not the complete legal health record.[facility]
--- OUTSIDE RECORDS SUMMARY | 2025-04-14 07:26 | XMS_ITS | Encounter Summary ---
Author Organization [facility] Address [address] [facility] [address] [place] [address] Phone Care Team Providers Care Onsite Case Manager Name Role Phone Ubaldo Lutz MD Primary Care Provider [phone] Esther Feliciano MD Primary Care Provider Unknown, Unknown Primary Care Provider Cheyenne rojas Pcp, Unknown Primary Care Provider UnavailEsther Wright MD Primary Care Provider [phone] Tommy Best MD Primary Care Provider + Encounter Details Date Type Department Care Team (Late st Contact Info) Description 01/30/2018 Procedure Pass OR Admitting Dept - [facility] Department [address] [place] [address] Social History Tobacco Use Types Packs/Day Years [...] AM EDT documented as of this encounter Plan of Treatment Not on file documented as of this encounter Visit Diagnoses Not on filedocumented in this encounter Additional Health Concerns Infection Onset Date Last Indicated Resolved Time MRSA 02/02/2018 02/02/2018 09/03/2022 1:41 AM EST documented as of this encounter Care Teams Onsite Case Manager Relationship Specialty Start Date End Date Ubaldo Lutz MD PCP - General Internal Medicine 01/28/18 04/11/19 Esther Feliciano MD [address] [place] [address], [address] [place] [address] [email or web address] PCP - General Internal Medicine 04/12/19 09/26/19 Unknown, Unknown, [address] [place] [address], [address] [place] [address] PCP - General 09/27/19 10/02/19 Pcp, Unknown PCP - General 10/03/19 04/22/20 Esther Feliciano MD [address] [place] [address], [address] [place] [address] PCP - General Internal Medicine 04/23/20 11/20/22 Tommy Best MD [address] [place] [address] PCP - General Family Medicine 11/21/22 documented as of this encounter Additional Source Comments The information contained in this document represents components of the legal health record. It is not the complete legal health record.[facility]
--- OUTSIDE RECORDS SUMMARY | 2025-04-14 07:26 | XMS_ITS | Clinical Summary ---
Author Organization [facility] Address [address] [place] [address] Phone Care Team Providers Care Delta System Freight Car Cleaner Name Role Phone Unavailable Primary Care Provider Unavailabl e Immunizations Immunization Administration Dates Next Due DTP 11/25/1993, 1,1989,1988,1989 Hep B, ped/adol 09/27/1999,08/10/1998,06/27/1998 Hib (PRP-T) 04/23/1990 MMR 04/16/2001,04/23/1990 OPV 11/25/1993, 1,1989,1988 Td (adult) (MBL), 2 Lf tetan us toxoid, PF, adsorbed 04/16/2001 Tdap 12/10/2007 Family History Relation Name Status Comments Brother Alive Brother: ADD Father Alive Father: Alive a nd well Maternal Grandfather Materna l grandfather: Hypertension Mother Alive Mother: ADD Paternal Grandmother Paterna l grandmother: scleroderma, Sister Alive Sister: Healthy , Alive and well Social History Tobacco Use Types Packs/Day Years Used Date Smoking Tobacco: Never Assessed Sex and Gender Information Value Date Recorded Sex Assigned at Not on file Legal Sex Male 4:31 PM EDT Gender Identity Not on file Sexual Orientation Not on file Last Filed Vital Signs Vital Sign Reading Time Taken Comments Blood Pressure - - Pulse - - Temperature 38.2 C (100.8 F) 08/07/2010 12:00 AM EST Respiratory Rate - - Oxygen Saturation - - Inhaled Oxygen Concentration - - Weight 102 kg (224 lb) 08/07/2010 12:00 AM EST Height - - Body Mass Index - - Plan of Treatment Health Maintenance Due Date Last Done Comments Varicella Vaccines (1 of 2 - 13+ 2-dose series) 2002 HPV Vaccines (1 - 3-dose SCDM series) 01/15/2016 DTaP,Tdap,and Td Vaccines (7 - Td or Tdap) 12/09/2017 12/10/2007, 04/16/2001, 11/25/1993, Additional history exists Influenza Vaccines (#1) 2025 COVID-19 Vaccine ( season) 2025 HIB Vaccines Completed 04/23/1990 IPV Vaccines Completed 11/25/1993, 09/17, 1989, Additional history exists Hepatitis B Vaccines Completed 09/27/1999, 08/10/1998, 06/27/1998 MMR Vaccines Completed 04/16/2001, 04/23/1990 Hepatitis A Vaccines Aged Out No long er eligible based on patient's age to complete this topic Men B Vaccine Aged Out No longer elig ible based on patient's age to complete this topic Meningococcal Vaccine Aged Out No kerline deborah eligible based on patient's age to complete this topic Pneumococcal Vaccine Aged Out No long er eligible based on patient's age to complete this topic
--- OUTSIDE RECORDS SUMMARY | 2025-04-14 07:26 | XMS_ITS | Clinical Summary ---
Author Organization [employer] Address [address] [facility] 7 [place] [address] Care Team Providers Care Security Systems Specialist Name Role Phone Unavailable Primary Care Provider Unavailabl e Allergies No known active allergies Medications No known medications Social History Tobacco Use Types Packs/Day Years Used Date Smoking Tobacco: Former Cigarettes Passive Smoke Exposure: Past Smokeless Tobacco: Former Tobacco Cessation:Counseling Given: No Alcohol Use Standard Drinks/Week Comments Defer 0 (1 standard drink = 0.6 oz pur e alcohol) Sex and Gender Information Value Date Recorded Sex Assigned at Male 05/25/2023 9:40 AM EST Legal Sex Male 9:32 AM EST Gender Identity Male 05/25/2023 9:39 AM EST Sexual Orientation Don't know 05/25/2023 9: 39 AM EST Plan of Treatment Health Maintenance Due Date Last Done Comments Dental Oral Exam 1989 Dental Prophylaxis 1989 Dental X-Ray: Bitewings 1989 Dental X-Ray: Full Mouth 1989 Depression Screening 1989 HIV Screening 1989 Lipid Panel 1989 SDOH Screening 1989 Disability Screening 1989 Alcohol/Substance Use Screening 2001 Family Planning (PISQ) 01/15/2004 HPV Vaccines (1 - Male 3-dose series) 01/15/2004 Hepatitis C Screening 2007 Hepatitis A Vaccines (1 of 2 - Risk 2-dose series) 01/15/2008 DTaP/Tdap/Td Vaccines (8 - Td or Tdap) 12/18/2022 12/18/2012, 12/10/2007, 04/16/2001, Additional history exists Tobacco Screening 05/25/2024 05/25/2023 COVID-19 Vaccine ( - season) 2025 Influenza Vaccine (#1) 2025 Zoster Vaccines (1 of 2) 2039 RSV Patients and Patients Aged 60 years or older (1 - 1-dose 75+ series) 01/15/2064 HIB Vaccines Completed 04/23/1990 IPV Vaccines Completed 11/25/1993, 09/17, 1989, Additional history exists Hepatitis B Vaccines Completed 09/27/1999, 08/10/1998, 06/27/1998 Meningococcal B Vaccine Aged Out No l onger eligible based on patient's age to complete this topic Meningococcal Vaccine Aged Out No kerline deborah eligible based on patient's age to complete this topic Pneumococcal Vaccine: Pediatrics (0 to 5 Years) and At-Risk Patients (6 to 49) Years Aged Out No longer eligible based on patient's age to complete this topic RSV under 20 months Aged Out No longe r eligible based on patient's age to complete this topic Rotavirus Vaccines Aged Out No longer eligible based on patient's age to complete this topic Insurance [facility] MEDICAID STAND ADULT
--- OUTSIDE RECORDS SUMMARY | 2025-04-14 07:26 | XMS_ITS | Encounter Summary ---
Author Organization [facility] Address [address] [place] [address] Phone Care Team Providers Care Leaflet Or Newspaper Deliverer Name Role Phone Unavailable Primary Care Provider Unavailabl e Encounter Details Date Type Department Care Team (Late st Contact Info) Description 12/16/2009 Documentation EM Family Medicine [address] [place] [address] Family Medicine, Physician [facility] [place] [address] Social History Tobacco Use Types Packs/Day Years [...]
--- OUTSIDE RECORDS SUMMARY | 2025-04-14 07:26 | XMS_ITS | Encounter Summary ---
Author Organization [facility] Address [address] [facility] [address] [place] [address] Phone Care Team Providers Care Asp Net Programmer Name Role Phone Ubaldo Lutz MD Primary Care Provider [phone] Esther Feliciano MD Primary Care Provider Unknown, Unknown Primary Care Provider Cheyenne rojas Pcp, Unknown Primary Care Provider UnavailEsther Wright MD Primary Care Provider Tommy Best MD Primary Care Provider + Encounter Details Date Type Department Care Team (Late st Contact Info) Description 02/02/2018 Documentation [facility] Infectious Disease Virtual Department [address] [place] [address] Pcp, Not Required [address] [place] [address] Social History Tobacco Use Types Packs/Day Years Used Date Smoking Tobacco: Former Smokeless Tobacco: Never Alcohol Use Standard Drinks/Week [...] documented as of this encounter Care Teams Asp Net Programmer Relationship Specialty Start Date End Date Ubaldo Lutz MD PCP - General Internal Medicine 01/28/18 04/11/19 Esther Feliciano MD [email or web address], [address] [place] [address] [email or web address] PCP - General Internal Medicine 04/12/19 09/26/19 Unknown, Unknown, [address] [place] [address], [address] [place] [address] PCP - General 09/27/19 10/02/19 Pcp, Unknown PCP - General 10/03/19 04/22/20 Esther Feliciano MD [address] [place] [address], [address] [place] [address] [email or web address] PCP - General Internal Medicine 04/23/20 11/20/22 Tommy Best MD [address] [place] [address] PCP - General Family Medicine 11/21/22 documented as of this encounter Additional Source Comments The information contained in this document represents components of the legal health record. It is not the complete legal health record.[facility]
--- OUTSIDE RECORDS SUMMARY | 2025-04-14 07:26 | XMS_ITS | Encounter Summary ---
Author Organization [facility] Address [address] [place] [address] Phone Care Team Providers Care Engraver Steel Plate Name Role Phone Pcp, Unknown Primary Care Provider Esther Harry MD Primary Care Provider [phone] Tommy Best MD Primary Care Provider + Encounter Details Date Type Department Care Team (Late st Contact Info) Description 03/31/2020 Procedure Pass [facility], Ct Scan - [facility] [address] [place] [address] Social History Tobacco Use Types Packs/Day Years Used Date Smoking Tobacco: Former Cigarettes 1 10 2013 Smokeless Tobacco: Never Alcohol Use Standard [...] documented as of this encounter Care Teams Engraver Steel Plate Relationship Specialty Start Date End Date Pcp, Unknown PCP - General 10/03/19 04/22/20 Esther Feliciano MD [address] [place] [address], [address] [place] [address] PCP - General Internal Medicine 04/23/20 11/20/22 Tommy Best MD [address] [place] [address] PCP - General Family Medicine 11/21/22 documented as of this encounter Additional Source Comments The information contained in this document represents components of the legal health record. It is not the complete legal health record.[facility]
--- OUTSIDE RECORDS SUMMARY | 2025-04-14 07:26 | XMS_ITS | Clinical Summary ---
Author Organization [facility] Address [address] [address] [place] [address] Phone Care Team Providers Care Bucket Operator Name Role Phone Tommy Best MD Primary Care Provider + Allergies Active Allergy Reactions Criticality Noted Date Comments Sulfamethoxazole-Trimethoprim Hives Medium 2017 Hives & fever Gluten Protein 04/12/2019 Clotrimazole Hives Low 02/01/2018 Medications * This document contains information received from the source organization and may not represent a complete record from that organization. lisinopriL (PRINIVIL,ZEST RIL) 10 MG tablet Take 1 tablet (10 mg total) by mouth daily. 30 tablet 0 Active erythromycin (ROMYCIN) ophthalmic ointment Place 0.5 inches into each eye nightly at bedtime. 3.5 g 0 Active Medication-Eduar e Text Depacote 1500mg Acti ve traZODone (DESYREL) 50 MG tablet Take 50 mg by mouth nightly at bedtime as needed. Active miscellaneous medical supply (BLOOD PRESSURE CUFF) MiscIndication s:Bipolar 1 disorder, manic, mild,Hypotensi on due to drugs 1 EA by Miscellaneous route 2 (two) times a day as needed. 1 each 0 Active cloNIDine HCL (CATAPRES) 0.1 MG tablet TAKE 1 TABLET BY MOUTH TWICE A DAY NEEDED FOR ANXIETY 60 tablet 3 1 Active clonazePAM (KLONOPIN) 1 MG tablet Take 1 tablet (1 mg total) by mouth 2 (two) times a day as needed for anxiety. 6 tablet 1 Active QUEtiapine (SEROQUEL) 400 MG tablet TAKE 1 TABLET BY MOUTH AT BEDTIME 30 tablet 3 1 Active QUEtiapine (SEROQUEL) 100 MG tablet TAKE 1 TABLET BY MOUTH EVERY DAY 30 tablet 3 1 Active terbinafine HCL (LAMISIL) 1 % cream Apply topically 2 (two) times a day. 30 g 1 1 Active Active Problems Problem Noted Date Diagnosed Date Schizoaffective disorder, bipolar type 0 Resolved Problems Problem Noted Date Diagnosed Date Resolved Date Cellulitis and abscess of foot 01/29/2018 07/31/2020 Assessment & Plan (01/30/2018 9:58 AM EDT): Cellulitis has improved and looks resolved. However MRI showed an abscess. Patient will go to the OR today for drainage. Continue IV vanco Wound culture shows staph aureus and strep. Need full ID to decide what antibiotic for discharge Pain managed with prn oxycodone patient reports although it is hard for him to walk on his foot Cellulitis and abscess of toe of left foot 01/29/2018 07/31/2020 Immunizations Immunization Administration Dates Next Due DTP 11/25/1993, 1,1989,1988,1989 Hepatitis B 09/27/1999,08/10/1998,06/27/1998 Hib,PRP-T 04/23/1990 MMR 04/16/2001,04/23/1990 Polio - OPV 11/25/1993, 1,1989,1988 Td (adult),2 Lf Tetanus Toxo id, PF, Adsorbed 04/16/2001 Tdap 12/10/2007 Family History Medical History Relation Comments No Known Problems Father No Known Problems Mother Relation Status Comments Father Mother Social History Tobacco Use Types Packs/Day Years Used Date Smoking Tobacco: Former Cigarettes 1 10 2 004 - 2013 Smokeless Tobacco: Never Alcohol Use Standard Drinks/Week Comments Yes 3 (1 standard drink = 0.6 oz pure alcohol) socially, tries to keep it under 2 beers, quit drinking a few months ago (02/18/2020) Education Answer Date Recorded Are you interested in more education? Not on hemal e 11/14/2022 Are you concerned about learning? Not on file 11/14/2022 No 11/14/2022 No 11/14/2022 Digital Access Answer Date Recorded No 12/15/2022 No 12/15/2022 No 12/15/2022 Reliable internet access at home? Not on file 12/15/2022 Device with a working camera? Not on file Intimate Partner Violence Answer Date R ecorded Are you denied basic needs s uch as food, clothing, or medical care? No 08/13/2023 In the past 12 months have y ou been in a relationship with a person who hurts, threatens, or tries to control you? No 08/13/2023 Are you denied basic needs s uch as food, clothing, or medical care? No 08/13/2023 In the past 12 months have y ou been in a relationship with a person who hurts, threatens, or tries to control you? 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 Not on file Not on file Not on file Last Filed Vital Signs Vital Sign Reading Time Taken Comments Blood Pressure 139/89 08/13/2023 10:05 PM EST Pulse 89 08/13/2023 10:05 PM EST Temperature 36.6 C (97.9 F) 08/13/2023 10:05 PM EST Respiratory Rate 20 08/13/2023 10:05 PM EST Oxygen Saturation 99% 08/13/2023 10:05 PM EST Inhaled Oxygen Concentration - - Weight 113.4 kg (250 lb) 08/13/2023 7:50 PM EST Height 185.4 cm (6' 1 ) 08/13/2023 7:50 PM EST Body Mass Index 32.98 08/13/2023 7:50 PM EST Plan of Treatment Health Maintenance Due Date Last Done Comments SMOKING Hx and SMOKELESS TOBACCO SCREENING 2002 HEPATITIS C SCREENING 2007 HIV ONE-TIME SCREENING (18-65 YEARS) 2007 Adult Td,Tdap Booster 12/09/2017 12/10/2007, 001 DEPRESSION SCREENING 04/12/2020 04/12/2019 CREATININE LEVEL 10/16/2021 10/16/2020, , 01/29/2018, Additional history exists POTASSIUM LEVEL 10/16/2021 10/16/2020, 09/17, 01/29/2018, Additional history exists SCREENING FOR DIABETES 01/15/2024 12/31/2020 LIPID PANEL 10/04/2024 10/05/2019 INFLUENZA VACCINE (#1) 2025 COVID-19 VACCINE ( season) 2025 HIB VACCINES Completed 04/23/1990 HEPATITIS A VACCINES Aged Out No long er eligible based on patient's age to complete this topic MENINGOCOCCAL VACCINES (ACWY) Aged Out No longer eligible based on patient's age to complete this topic MENINGOCOCCAL VACCINES (B) Aged Out N o longer eligible based on patient's age to complete this topic PNEUMOCOCCAL VACCINES (0-49 years) Aged Out No longer eligible based on patient's age to complete this topic Medical Devices Not on file Procedures Procedure Name Priority Date/Time Associated Diagnosis Comments BASIC METABOLIC PANEL STAT 10/16/2020 8:21 PM EDT LIPID PANEL Routine 10/05/2019 6:40 AM EDT from Last 3 Months or Most Recently Relevant to Health Maintenance Results * (ABNORMAL) Basic metabolic panel (10/16/2020 8:21 PM EDT) SODIUM 138 133 - 146 mmol/L [facility] CHLORIDE 102 96 - 108 mmol/L [facility] POTASSIUM 3.9 3.3 - 5.1 mmol/L [facility] Comment:Specimen slightly he molyzed, result may be falsely elevated. CO2 24 21 - 35 mmol/L [facility] BUN 20(H) 6 - 19 mg/dL [facility] CREATININE 1.20 0.5 - 1.5 mg/dL [facility] GLUCOSE 105(H) 70 - 99 mg/dL [facility] CALCIUM 9.6 8.4 - 10.3 mg/dL [facility] EGFR 80 >59 mL/min/1.7 3m2 [facility] Comment:Estimated glomerular filtration rate calculated using the CKD-EPI equation. ANION GAP 16 10 - 20 mmol/L [facility] Blood 10/16/2020 8:21 PM EDT 10/16/2020 8:28 PM EDT us Long Pittman PA-C LAB BLOOD ORDERABLES Final R esult Performing Organization Address [facility]/ZIP Co de Phone Number [address] [address] * Lipid panel (10/05/2019 6:40 AM EDT) HDL 44 mg/dL [facility] Comment: Interpretation <40 mg/dL: Low HDL cholesterol (major risk factor for CHD) Greater than or equal to 60 mg/dL: High HDL cholesterol ( negative risk factor for CHD) HDL - cholesterol is affected by a number of factors, e.g. smoking, excerise, hormones, sex and age. CHOLESTEROL 149 0 - 240 mg/dL [facility] TRIGLYCERIDES 121 30 - 160 mg/dL [facility] LDL 81 50 - 129 mg/dL [facility] Comment: LDL levels in terms of risk for coronary heart disease: <100 mg/dL: Optimal 100-129 mg/dL: Near or above optimal 130-159 mg/dL: Borderline high 160-189 mg/dL: High >190 mg/dL: Very High CARDIAC RISK RATIO 3.4 3.4 - 5.0 [facility] Blood 10/05/2019 6:40 AM EDT 10/05/2019 6:55 AM EDT us Gladis Banegas MD LAB BLOOD ORDERABLES Final Re sult Performing Organization Address City/[facility]/ZIP Co de Phone Number [address] [address] from Last 3 Months or Most Recently Relevant to Health Maintenance [place] [address] [place] [address] [place] [address] [place] [address] [place] [address] [place] [address] A[place] [facility] [employer] [facility]CO [facility] ACO Advance Directives For more information, please contact: [phone] (9AM - 5PM [facility], Thursday-Thursday) * Full Code (Presumed) (Latest Code Status on File) Date Activated Date Inactivated Comments 10/04/2019 3:01 PM 10/11/2019 12:38 PM * Full Code (Presumed) Date Activated Date Inactivated Comments 01/30/2018 11:57 AM 01/30/2018 7:47 PM * Full Code (Confirmed) Date Activated Date Inactivated Comments 01/29/2018 3:14 AM 01/30/2018 11:57 AM Question Answer Comments Code Status Confirmed With: Patient Care Teams Bucket Operator Relationship Specialty Start Date End Date Tommy Best MD [address] [place] [id number] PCP - General Family Medicine 11/21/22 Additional Source Comments The information contained in this document represents components of the legal health record. It is not the complete legal health record.[facility]
--- OUTSIDE RECORDS SUMMARY | 2025-04-14 07:26 | XMS_ITS | Encounter Summary ---
Author Organization [facility] Address [address] [place] [address] Phone Care Team Providers Care Processing Assistant Name Role Phone Pcp, Unknown Primary Care Provider Esther Harry MD Primary Care Provider [phone] Tommy Best MD Primary Care Provider + Encounter Details Date Type Department Care Team (Late st Contact Info) Description 03/31/2020 Procedure Pass [facility], Ct Scan - [facility] [address] [place] [address] Social History Tobacco Use Types Packs/Day Years [...] documented as of this encounter Care Teams Processing Assistant Relationship Specialty Start Date End Date Pcp, Unknown PCP - General 10/03/19 04/22/20 Esther Feliciano MD [address] [place] [address], 2[address] [place] [address] PCP - General Internal Medicine 04/23/20 11/20/22 Tommy Best MD [address] [place] [address] PCP - General Family Medicine 11/21/22 documented as of this encounter Additional Source Comments The information contained in this document represents components of the legal health record. It is not the complete legal health record.[facility]
[2025-04-14 07:59] LABS: MANUAL DIFF FLAG NO
[2025-04-14 08:02] LABS: Hematocrit 40.3 % (42.0-52.0); Hemoglobin 13.9 g/dl (14.0-18.0); Imm Gran Abs Auto 0.04 X10*3/uL (0.00-0.03); Imm Gran Pct Auto 0.5 % (0.0-0.4); Lymphocytes Absolute Auto 0.8 X10*3/uL (1.2-4.9); Mean Corpuscular HGB Conc 34.5 g/dl (31.0-36.0); Mean Corpuscular Hemoglobin 30.9 pg (27.0-33.0); Mean Corpuscular Volume 89.6 fL (80.0-98.0); NRBC Abs Auto 0.000 X10*3/uL (0.0-0.012); NRBC Pct Auto 0.0 /100WBC (0.0-0.2); Platelet Count 156 X10*3/uL (160-400); Red Blood Count 4.50 X10*6/uL (4.60-5.80); White Blood Count 8.3 X10*3/uL (4.8-10.8)
[2025-04-14 08:14] LABS: Alanine Aminotransferase 41 U/L (0-40); Albumin Level 4.6 g/dL (3.5-5.0); Alkaline Phosphatase 137 U/L (39-117); Anion Gap 11 (12-20); Aspartate Amino Transferase 50 U/L (5-37); Blood Urea Nitrogen 19 mg/dL (9-16); Calcium 9.9 mg/dL (8.4-10.2); Carbon Dioxide 28 mmol/L (22-29); Chloride 102 mmol/L (96-108); Creatinine Clr Calc Pharmacy 150.6; Estimated Glomerular Filt Rate > 60; Magnesium 2.0 mg/dL (1.6-2.6); Potassium 4.0 mmol/L (3.3-5.1); Sodium 137 mmol/L (135-145); Total Protein 7.3 g/dL (6.5-8.0)
[2025-04-14] MEDS: iohexoL 350 MG/ML 100 ML INFUS..BTL IV (08:40)
[2025-04-14] MEDS: cefEPime HCl/D5W 2 GM/50 ML PIGGYBACK IV ×2 (10:11→21:56)
[2025-04-14] MEDS: vancomycin/NS 2,000 MG/500 ML PLAST..BAG 250 MG IV (10:56)
--- NOTE | 2025-04-14 12:20 | MHC.EDTECH ---
in MRI from 1210pm
--- NOTE | 2025-04-14 19:59 | PC.NURSE ---
this rn assumed care of pt, pt resting in stretcher after mri at this time, pt offers no complaints. BERTRAM Armijo at bedside.
--- NOTE | 2025-04-14 20:50 | PHA.MEDREC ---
Addendum entered by Annalise Fried RPh 04/14/25 21:38: MED REC REVIEWED BY [facility] Original Note: Pharmacy Consult ? Medication Reconciliation Pharmacy has completed the medication reconciliation. Spoke with pt and he confirmed his medications. Pt confirmed he takes a ton of vitamin OTC but stated it'll take too long to tell what I take for them and did not want to tell me what they were at this time.
--- NOTE | 2025-04-14 21:50 | PHA.PROG ---
Admission Date/Time: April 14, 2025 21:33 Indication: BONE & JOINT Weight in k.326 kg Adjusted body weight in K.67 [place] body weight in K.9 Obesity Dosing Indication % IBW: 30.3 Serum Creatinine - Last 168 Hours 04/14/25 07:54 Creatinine 0.86 Estimated CrCl and GFR - Last 168 Hours 04/14/25 07:54 Estim Creat Clear Calc 150.6 Estimated GFR > 60 Vancomycin Loading Dose: 2000 MG Current Vancomycin Dosing Regimen: 1500 MG Q12 Vancomycin Monitoring using AUC goal of 400 - 600 range with trough as surrogate marker: 552/17.1 Date and Time for next Vancomycin Level to be drawn: 04/15 @ 1999 Pharmacist Comments on Vancomycin Plan: Vancomycin dosing will take advantage of [employer] as a clinical decision support tool that uses Bayesian modeling to calculate individual patient's pharmacokinetic parameters and forecast the patient's drug concentration time course with the target goal AUC 24 range of 400 - 600 mg/L/hr.
[2025-04-14] MEDS: diazePAM 10 MG/2 ML CARTRIDGE 5 MG IVPUSH (21:56)
--- NOTE | 2025-04-14 22:04 | PC.NURSE ---
pt medicated per sep, tolerated whole well with water
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
[2025-04-15] MEDS: Lactated Ringers 1,000 ML 999 ML IV (00:24)
--- NOTE | 2025-04-15 00:27 | PC.NURSE ---
pt noted to be febrile at this time after administered PO tylenol, BERTRAM Ivan aware, iv fluids administering per sep.
[2025-04-15] MEDS: oxyCODONE HCl Immed Release 5 MG TABLET PO (01:42)
[2025-04-15] MEDS: 0.9 % Sodium Chloride Flush 3 ML SYRINGE IVFLUSH ×4 (01:44→20:57)
[2025-04-15] MEDS: diazePAM 10 MG/2 ML CARTRIDGE 5 MG IVPUSH (02:29)
--- NOTE | 2025-04-15 02:46 | PC.NURSE ---
This RN assumed care for patient around 00:45. Patient came up in pain, yelling out saying he can't move due to the pain. Per MAR prn IV Dilaudid was given and on reassessment pt states it did not help. Patient then medicated with 5mg oxycodone, also was offered hot packs and pillows to reposition him but patient still screaming out in pain. Patient then continued to scream out loud, yelling at staff, asking to speak with a doctor. Dr. Ocasio notified and ordered 1x dose 5mg IV valium. Camera placed in room due to concerns patient would throw himself to the floor. With the help of fire extinguisher chargersecurity guard was brought to the room and he was able to ambulate to the bathroom w/ the officers help. Security helped get patient back into bed and explained the reason for being brought to his room. Patient verbalized his understanding and said his outburst are due to his pain. currently 03:10- patient is resting in bed w/ eyes closed, snoring, even chest rises and fall
--- NOTE | 2025-04-15 03:19 | PC.NURSE ---
patient admitted to this RN that he takes methadone from a friend and not an actual clinic
[2025-04-15 03:28] VITALS: BP 185/85; PULSE 67; RESP 18; TEMP 37; O2SAT 94
[2025-04-15] MEDS: cefEPime HCl/D5W 2 GM/50 ML PIGGYBACK IV ×3 (05:31→22:56)
--- NOTE | 2025-04-15 06:11 | PC.NURSE ---
Patient slept for a bit and woke up around 05:00 in pain. Multiple staff have tried to make patient comfortable in offering ice & hot packs, repositioning, but patient is very resistant to suggestion. Patient can get impatient very quickly and will yell out instead if using call [place]. He got another dose of IV dilaudid @05:09 and some anxiety meds because patient said he was freaking out. This RN notified Dr. Ocasio to see if patient could get lidocaine patches for his back but no response. It is currently 06:38 and patient is back resting in bed w/ eyes closed. appears to be sleeping w/ respirations even & unlabored.
[2025-04-15 07:23] VITALS: BP 132/71; PULSE 93; RESP 20; TEMP 36.9; O2SAT 94
[2025-04-15 09:26] LABS: MANUAL DIFF FLAG NO
[2025-04-15 10:09] LABS: Hematocrit 36.6 % (42.0-52.0); Hemoglobin 13.0 g/dl (14.0-18.0); Imm Gran Abs Auto 0.06 X10*3/uL (0.00-0.03); Imm Gran Pct Auto 0.8 % (0.0-0.4); Lymphocytes Absolute Auto 0.5 X10*3/uL (1.2-4.9); Mean Corpuscular HGB Conc 35.5 g/dl (31.0-36.0); Mean Corpuscular Hemoglobin 31.3 pg (27.0-33.0); Mean Corpuscular Volume 88.0 fL (80.0-98.0); NRBC Abs Auto 0.000 X10*3/uL (0.0-0.012); NRBC Pct Auto 0.0 /100WBC (0.0-0.2); Red Blood Count 4.16 X10*6/uL (4.60-5.80); White Blood Count 7.5 X10*3/uL (4.8-10.8)
[2025-04-15 10:20] LABS: Anion Gap 9 (12-20); Blood Urea Nitrogen 14 mg/dL (9-16); Carbon Dioxide 23 mmol/L (22-29); Chloride 106 mmol/L (96-108); Creatinine Clr Calc Pharmacy 202.3; Estimated Glomerular Filt Rate > 60; Potassium 3.3 mmol/L (3.3-5.1); Sodium 135 mmol/L (135-145)
[2025-04-15 10:26] LABS: Platelet Count 108 X10*3/uL (160-400)
[2025-04-15 10:27] LABS: Calcium 8.3 mg/dL (8.4-10.2)
--- NOTE | 2025-04-15 12:34 | P.PNIM_ITS ---
Subjective Subjective Date of Service: 04/15/25 Interval History: No acute issues overnight. Pain control appears adequate Review of Systems Denies chest pain Denies shortness of breath Denies nausea vomiting diarrhea Denies fever chills Physical Exam 2 Vital Signs: Vital Signs: Last Vital Signs Temp 98.5 F 04/15/25 07:23 Pulse 93 04/15/25 07:23 Resp 20 04/15/25 07:23 BP 132/71 04/15/25 07:23 Pulse Ox 94 04/15/25 07:23 O2 Del Method Room Air 04/15/25 07:23 BMI result Body Mass Index 30.3 Const: Other: Awake alert no acute distress Resp: Other: Clear to auscultation bilaterally no rales rhonchi or wheezes Cardio: Other: No S4; positive S1-S2; no S3 murmurs rubs or gallops GI: Other: Soft nontender nondistended normoactive bowel sounds Extrem: Other: No edema bilaterally Objective Data Active Medications Acetaminophen (Acetaminophen 325 Mg Tablet) 975 mg PO Q6H PRN PRN Reason: Pain, Mild 1-3,fever,headache Last Admin: 04/15/25 05:18 Dose: 975 mg Documented By: TIMOTHY Calcium Carbonate (Calcium Carbonate 750 Mg Tab.Chew) 750 mg PO Q4H PRN PRN Reason: Heartburn Enoxaparin Sodium (Enoxaparin Sodium 40 Mg/0.4 Ml Syringe) 40 mg SUBCUT Q24H [facility] Last Admin: 04/14/25 21:56 Dose: 40 mg Documented By: ALVINO Hydromorphone HCl (Hydromorphone Hcl 1 Mg/Ml Syringe) 1 mg IVPUSH Q4H PRN; Protocol PRN Reason: Pain, Severe (Pain Scale 7-10) Last Admin: 04/15/25 09:12 Dose: 1 mg Documented By: RAYMUNDO Cefepime HCl (Maxipime) 2 gm in 50 mls @ 100 mls/hr IV Q8H [facility] Last Infusion: 04/15/25 06:07 Dose: Infused Documented By: TIMOTHY Vancomycin HCl 1,500 mg/ (Sodium Chloride) 500 mls @ 333.333 mls/hr IV Q12H [facility] Last Infusion: 04/15/25 12:04 Dose: Infused Documented By: RAYMUNDO Magnesium Hydroxide (Milk Of Magnesia 30 Ml Oral.Susp) 30 ml PO DAILY PRN PRN Reason: Constipation Melatonin (Melatonin 3 Mg Tablet) 6 mg PO BEDTIME PRN PRN Reason: Insomnia Ondansetron HCl (Ondansetron Hcl 4 Mg/2 Ml Vial) 4 mg IVPUSH Q8H PRN PRN Reason: Nausea and Vomiting Oxycodone HCl (Oxycodone Hcl Immed Release 5 Mg Tablet) 10 mg PO Q4H PRN PRN Reason: Pain, Moderate(Pain Scale 4-6) Pharmacy Consult (Consult Rx Vancomycin Dosing) 1 each MISCELLANE DAILY PRN PRN Reason: Consult order Quetiapine Fumarate (Quetiapine Fumarate 400 Mg Tablet) 400 mg PO BEDTIME [facility] Sodium Chloride (0.9 % Sodium Chloride Flush 3 Ml Syringe) 3 ml IVFLUSH QSHIFT [facility] Last Admin: 04/15/25 09:15 Dose: 3 ml Documented By: RAYMUNDO Labs 04/15/25 09:04 04/15/25 09:04 Labs: Laboratory Results - last 24 hr 04/14/25 04/15/25 07:54 09:04 MCV 88.0 MCH 31.3 MCHC 35.5 RDW 12.4 Plt Count 108 L D MPV 10.8 Immature Gran % (Auto) 0.8 H Neut % (Auto) 82.8 H Lymph % (Auto) 6.4 L [place] % (Auto) 9.7 Eos % (Auto) 0.0 Baso % (Auto) 0.3 Lymph # (Auto) 0.5 L [place] # (Auto) 0.7 Eos # (Auto) 0.0 Baso # (Auto) 0.0 Abs Immat Gran (auto) 0.06 H Absolute Neuts (auto) 6.2 Absolute Nucleated RBC 0.000 Nucleated RBC % (auto) 0.0 ESR 11 Anion Gap 9 L Estim Creat Clear Calc 202.3 Estimated GFR > 60 Random Glucose 145 H Calcium 8.3 L D C-Reactive Protein 4.73 H Microbiology Microbiology Results: Microbiology 04/14/25 10:02 Blood Culture - Preliminary Blood - Venous Prelim: GPC Gram Stain only 04/14/25 10:02 Blood Culture - Preliminary Blood - Venous Prelim: GPC Gram Stain only Assessment and Plan (1) Discitis: Status: Acute (2) History of intravenous drug abuse: Status: Acute Plan Patient is a 35-year-old male with low back pain, discitis/osteomyelitis concern on lumbar MRI 1.ow back pain/discitis - vancomycin/zosyn (2) - ID consult - pain management NURA - addiction med consult full code lovenox Patient will require ongoing hospitalization for IV antibiotics to treat discitis with question of osteomyelitis Quality Stroke Does the patient have a stroke diagnosis?: No VTE Prior VTE?: No VTE Risk Level:: Medical - moderate - high VTE Device Contraindication: Treatment Not Indicated VTE Drug Contraindication: N/A - Med Ordered
[2025-04-15 15:11] VITALS: BP 125/64; PULSE 91; RESP 20; TEMP 36.8; O2SAT 96
--- NOTE | 2025-04-15 15:34 | MHC.CM.PN ---
PT LIVES WITH A FRIEND AND IS INDEPENDENT WITH CARE HE HAS NO DME OR SERVICES DECLINES A HCP PCP: SHERIF ALLEN IMM DELIVERED DCP: HOME VIA PRIVATE TRANSPORT
[2025-04-15] MEDS: oxyCODONE HCl Immed Release 5 MG TABLET 10 MG PO ×2 (15:44→19:46)
[2025-04-15 19:17] VITALS: BP 127/75; PULSE 84; RESP 16; O2SAT 98
[2025-04-15 20:15] LABS: Cannabinoid Screen Urine POSITIVE (Not Detect)
--- NOTE | 2025-04-15 20:37 | HE.PHANOTE ---
re vanco patients level came back low today at 5.2. patient seems to be clearing vancomycin at a significant rate. will increase from 1500 mg Q12H to Q8H. Next level will be drawn after 3 doses of Q8H tomorrow 04/16 @1900 to ensure safety vs efficacy.
[2025-04-16 03:43] VITALS: BP 139/81; PULSE 100; RESP 18; TEMP 37.5; O2SAT 97
[2025-04-16 06:12] LABS: MANUAL DIFF FLAG NO
[2025-04-16 06:29] LABS: Anion Gap 10 (12-20); Blood Urea Nitrogen 14 mg/dL (9-16); Calcium 8.0 mg/dL (8.4-10.2); Carbon Dioxide 22 mmol/L (22-29); Chloride 108 mmol/L (96-108); Creatinine Clr Calc Pharmacy 193.3; Estimated Glomerular Filt Rate > 60; Potassium 3.5 mmol/L (3.3-5.1); Sodium 136 mmol/L (135-145)
[2025-04-16 06:31] LABS: Hematocrit 34.9 % (42.0-52.0); Hemoglobin 12.2 g/dl (14.0-18.0); Imm Gran Abs Auto 0.01 X10*3/uL (0.00-0.03); Imm Gran Pct Auto 0.2 % (0.0-0.4); Lymphocytes Absolute Auto 0.7 X10*3/uL (1.2-4.9); Mean Corpuscular HGB Conc 35.0 g/dl (31.0-36.0); Mean Corpuscular Hemoglobin 30.8 pg (27.0-33.0); Mean Corpuscular Volume 88.1 fL (80.0-98.0); NRBC Abs Auto 0.000 X10*3/uL (0.0-0.012); NRBC Pct Auto 0.0 /100WBC (0.0-0.2); Platelet Count 101 X10*3/uL (160-400); Red Blood Count 3.96 X10*6/uL (4.60-5.80); White Blood Count 5.1 X10*3/uL (4.8-10.8)
[2025-04-16] MEDS: cefEPime HCl/D5W 2 GM/50 ML PIGGYBACK IV ×3 (06:33→23:09)
[2025-04-16 07:16] VITALS: BP 143/65; PULSE 66; RESP 18; TEMP 36.8; O2SAT 91
[2025-04-16 08:05] VITALS: BP 130/75; PULSE 75; RESP 16; TEMP 36.9; O2SAT 97
[2025-04-16] MEDS: 0.9 % Sodium Chloride Flush 3 ML SYRINGE IVFLUSH ×3 (11:01→21:08)
--- NOTE | 2025-04-16 12:24 | HO.PM.IMPN ---
Subjective Subjective Date of Service: 04/16/25 Interval History: No acute issues overnight. States tramadol extremely helpful with pain Review of Systems Denies chest pain Denies shortness of breath Denies nausea vomiting diarrhea Denies fever chills Physical Exam Vital Signs: Vital Signs: Last Vital Signs Temp 98.4 F 04/16/25 08:05 Pulse 75 04/16/25 08:05 Resp 16 04/16/25 08:05 BP 130/75 04/16/25 08:05 Pulse Ox 97 04/16/25 08:05 O2 Del Method Room Air 04/16/25 08:05 BMI result Body Mass Index 30.3 Const: Other: Awake alert no acute distress Resp: Other: Clear to auscultation bilaterally no rales rhonchi or wheezes Cardio: Other: No S4; positive S1-S2; no S3 murmurs rubs or gallops GI: Other: Soft nontender nondistended normoactive bowel sounds Extrem: Other: No edema bilaterally Objective Data Active Medications Acetaminophen (Acetaminophen 325 Mg Tablet) 975 mg PO Q6H PRN PRN Reason: Pain, Mild 1-3,fever,headache Last Admin: 04/15/25 05:18 Dose: 975 mg Documented By: TIMOTHY Calcium Carbonate (Calcium Carbonate 750 Mg Tab.Chew) 750 mg PO Q4H PRN PRN Reason: Heartburn Enoxaparin Sodium (Enoxaparin Sodium 40 Mg/0.4 Ml Syringe) 40 mg SUBCUT Q24H [facility] Last Admin: 04/15/25 22:57 Dose: 40 mg Documented By: TIMOTHY Hydromorphone HCl (Hydromorphone Hcl 1 Mg/Ml Syringe) 1 mg IVPUSH Q4H PRN; Protocol PRN Reason: Pain, Severe (Pain Scale 7-10) Last Admin: 04/16/25 10:38 Dose: 1 mg Documented By: RAYMUNDO Cefepime HCl (Maxipime) 2 gm in 50 mls @ 100 mls/hr IV Q8H [facility] Last Infusion: 04/16/25 07:30 Dose: Infused Documented By: RAYMUNDO Vancomycin HCl 1,500 mg/ (Sodium Chloride) 500 mls @ 333.333 mls/hr IV Q8H [facility] Last Infusion: 04/16/25 06:27 Dose: Infused Documented By: TIMOTHY Ketorolac Tromethamine (Ketorolac Tromethamine 30 Mg/Ml Vial) 30 mg IVPUSH Q6H PRN PRN Reason: Pain, Moderate(Pain Scale 4-6) Last Admin: 04/16/25 10:38 Dose: 30 mg Documented By: RAYMUNDO Magnesium Hydroxide (Milk Of Magnesia 30 Ml Oral.Susp) 30 ml PO DAILY PRN PRN Reason: Constipation Melatonin (Melatonin 3 Mg Tablet) 6 mg PO BEDTIME PRN PRN Reason: Insomnia Ondansetron HCl (Ondansetron Hcl 4 Mg/2 Ml Vial) 4 mg IVPUSH Q8H PRN PRN Reason: Nausea and Vomiting Last Admin: 04/15/25 14:00 Dose: 4 mg Documented By: RAYMUNDO Oxycodone HCl (Oxycodone Hcl Immed Release 5 Mg Tablet) 10 mg PO Q4H PRN PRN Reason: Pain, Moderate(Pain Scale 4-6) Last Admin: 04/15/25 19:46 Dose: 10 mg Documented By: TIMOTHY Pharmacy Consult (Consult Rx Vancomycin Dosing) 1 each MISCELLANE DAILY PRN PRN Reason: Consult order Quetiapine Fumarate (Quetiapine Fumarate 400 Mg Tablet) 400 mg PO BEDTIME [facility] Last Admin: 04/15/25 20:48 Dose: 200 mg Documented By: TIMOTHY Comments: patient requested to have half a tab Sodium Chloride (0.9 % Sodium Chloride Flush 3 Ml Syringe) 3 ml IVFLUSH QSHIFT [facility] Last Admin: 04/16/25 11:01 Dose: 3 ml Documented By: RAYMUNDO Labs 04/16/25 05:36 04/16/25 05:36 Labs: Laboratory Results - last 24 hr 04/15/25 04/15/25 04/16/25 19:24 19:45 05:36 MCV 88.1 MCH 30.8 MCHC 35.0 RDW 12.4 Plt Count 101 L MPV 10.6 Immature Gran % (Auto) 0.2 Neut % (Auto) 72.7 Lymph % (Auto) 14.1 L [place] % (Auto) 12.4 H Eos % (Auto) 0.4 Baso % (Auto) 0.2 Lymph # (Auto) 0.7 L [place] # (Auto) 0.6 Eos # (Auto) 0.0 Baso # (Auto) 0.0 Abs Immat Gran (auto) 0.01 Absolute Neuts (auto) 3.7 Absolute Nucleated RBC 0.000 Nucleated RBC % (auto) 0.0 Anion Gap 10 L Estim Creat Clear Calc 193.3 Estimated GFR > 60 Random Glucose 107 Calcium 8.0 L Vancomycin Trough 5.2 L Urine Opiates Screen POSITIVE H Ur Buprenorphine Scrn Not Detected Ur Oxycodone Screen Positive H Urine Methadone Screen Positive H Urine Fentanyl Screen POSITIVE H Ur Barbiturates Screen Not Detected Ur Phencyclidine Scrn Not Detected Ur Amphetamines Screen Not Detected U Benzodiazepines Scrn POSITIVE H Urine Cocaine Screen Not Detected U Marijuana (THC) Screen POSITIVE H Microbiology Microbiology Results: Microbiology 04/14/25 10:02 Blood Culture - Preliminary Blood - Venous Staphylococcus aureus 04/14/25 10:02 Blood Culture - Preliminary Blood - Venous Staphylococcus aureus Assessment and Plan (1) Osteomyelitis of lumbar spine: Status: Acute Plan Patient is a 35-year-old male with low back pain, discitis/osteomyelitis concern on lumbar MRI 1. Lumbar osteomyelitis/discitis - vancomycin/zosyn (3) -2/2 blood cultures positive for staph aureus - ID consult - pain management... States Toradol more effective in the narcotics. We will continue with 6 more doses as needed 2.NURA -addiction med consult appreciated -no indication to start methadone during this hospitalization d full code lovenox Patient will require ongoing hospitalization for IV antibiotics to treat discitis with question of osteomyelitis Quality Stroke Does the patient have a stroke diagnosis?: No VTE Prior VTE?: No VTE Risk Level:: Medical - moderate - high VTE Device Contraindication: Treatment Not Indicated VTE Drug Contraindication: N/A - Med Ordered
[2025-04-16 15:32] VITALS: BP 130/67; PULSE 64; RESP 16; TEMP 36.9; O2SAT 96
[2025-04-16] MEDS: oxyCODONE HCl Immed Release 5 MG TABLET 10 MG PO ×2 (15:54→21:08)
--- NOTE | 2025-04-16 19:22 | HE.PHANOTE ---
re [facility] patients level came back this evening at 11.4. next level tomorrow 04/17 @1900. increased dose from 1500 mg to 1750 mg Q8H
[2025-04-16 20:00] VITALS: BP 125/70; PULSE 52; RESP 18; TEMP 36.4; O2SAT 96
[2025-04-16] MEDS: vancomycin HCL 1,000 MG, vancomycin HCL 750 MG in 0.9 % Sodium Chloride 500 ML 267.5 MG IV (21:08)
[2025-04-17] MEDS: oxyCODONE HCl Immed Release 5 MG TABLET 10 MG PO ×4 (03:57→15:28)
[2025-04-17 04:00] VITALS: BP 114/64; PULSE 66; RESP 18; TEMP 36.9; O2SAT 98
[2025-04-17] MEDS: vancomycin HCL 1,000 MG, vancomycin HCL 750 MG in 0.9 % Sodium Chloride 500 ML 267.5 MG IV (04:06)
--- NOTE | 2025-04-17 05:31 | PC.NURSE ---
Pt seen on bed alert and oriented, c/o low back pain, alternating prn pain meds given, tolerating po, voiding in urinal. Early am, pt impulsively got OOB to BR, unsteady due to pain but was able to make it back to bed supervised, was in a lot of pain after, prn Oxycodone given, safety reinstructed to pt, slept after.
[2025-04-17 05:50] LABS: MANUAL DIFF FLAG NO
[2025-04-17 05:51] LABS: Hematocrit 32.7 % (42.0-52.0); Hemoglobin 11.7 g/dl (14.0-18.0); Imm Gran Abs Auto 0.01 X10*3/uL (0.00-0.03); Imm Gran Pct Auto 0.2 % (0.0-0.4); Lymphocytes Absolute Auto 1.6 X10*3/uL (1.2-4.9); Mean Corpuscular HGB Conc 35.8 g/dl (31.0-36.0); Mean Corpuscular Hemoglobin 31.3 pg (27.0-33.0); Mean Corpuscular Volume 87.4 fL (80.0-98.0); NRBC Abs Auto 0.000 X10*3/uL (0.0-0.012); NRBC Pct Auto 0.0 /100WBC (0.0-0.2); Platelet Count 119 X10*3/uL (160-400); Red Blood Count 3.74 X10*6/uL (4.60-5.80); White Blood Count 5.5 X10*3/uL (4.8-10.8)
[2025-04-17 06:05] LABS: Anion Gap 11 (12-20); Blood Urea Nitrogen 13 mg/dL (9-16); Calcium 8.3 mg/dL (8.4-10.2); Carbon Dioxide 23 mmol/L (22-29); Chloride 111 mmol/L (96-108); Creatinine Clr Calc Pharmacy 199.2; Estimated Glomerular Filt Rate > 60; Potassium 3.6 mmol/L (3.3-5.1); Sodium 141 mmol/L (135-145)
[2025-04-17] MEDS: cefEPime HCl/D5W 2 GM/50 ML PIGGYBACK IV (06:07)
[2025-04-17] MEDS: 0.9 % Sodium Chloride Flush 3 ML SYRINGE IVFLUSH ×3 (07:45→21:20)
--- NOTE | 2025-04-17 07:52 | CA_ITS ---
Transthoracic Echocardiogram Patient (Last, First, Middle): Rai Jasso, Gender: M Date of : 1990 Age: 35 Procedure Date: 04/17/2025 Procedure Type: Transthoracic Echocardiogram Location: S3E Height: 185.42 cm Weight: 104.33 kg BSA: 2.28 m2 Heart Rate: bpm BP: 127 / 78 mmHg [employer] Manager: SB Referring MD: Master Maldonado MD Symptoms: mssa bacteremia Study Quality: Good ECG Rhythm: Sinus Conclusions: - The left ventricular systolic function is mildly decreased. The calculated ejection fraction is 52% by biplane method. - No obvious valvular pathology seen on this study. - Mild pulmonary hypertension is present. Findings Left Ventricle Normal left ventricular cavity size. The left ventricular systolic function is mildly decreased. The calculated ejection fraction is 52% by biplane method. There is no evidence of regional wall motion abnormalities. Diastolic function is normal for age. There is mild septal asymmetric hypertrophy. Right Ventricle Normal right ventricular cavity size and systolic function. Atria The left atrium is mildly dilated. The right atrium is normal in size. Aortic Valve There is a normal trileaflet aortic valve. There is no aortic valve stenosis. There is no aortic valve regurgitation. Mitral Valve The mitral valve appears normal. There is trace mitral valve regurgitation. There is no mitral valve stenosis. Pulmonic Valve The pulmonic valve is likely normal. Tricuspid Valve There is mild tricuspid valve regurgitation. Mild pulmonary hypertension is present. Great Vessels The asc aorta is normal in size. Venous The inferior vena cava is dilated and collapses greater than 50% with inspiration. Pericardium/Pleural There is no evidence of pericardial effusion. Prior Study Comparison No prior study available for comparison. Recommendations, Care & Conclusions No obvious valvular pathology seen on this study. Measurements 2D Linear Measurements IVSd: 1.23 0.6-0.9/0.6-1.0 cm LVIDd: 5.73 3.9-5.3/4.2-5.9 cm LVIDd Index: 2.51 2.4-3.2/2.2-3.1 cm/m2 LVIDs: 3.76 2.0-3.6 cm LVPWd: 0.54 0.7-1.1 cm Ao Root: 3.40 2.1-3.5 cm LA Diam: 4.60 2.7-3.8/3.0-4.0 cm LAIDs Index: 2.02 1.5-2.3 cm/m2 LV Mass: 242.39 67-162/88-224 g LV Mass Index: 106.31 43-95/49-115 g/m2 LVOT Diam: 2.80 3.0+(-)1.3 cm 2D Systolic Function EF 4C: 45.20 >55% EF 2C: 58.40 >55% EF BiP: 51.50 >55% Mitral Valve MV Pk E: 0.83 MV PK A: 0.35 MV Decel Time: 231.00 E/A: 2.40 E'Lateral: 11.10 E'Medial: 7.62 E/E' Med: 10.90 E/E' Lat: 7.50 PHT: 68.00 MVA PHT: 3.24 Decel [place]: 3.59 Aortic Valve AoV Pk De: 1.29 AoV Pk Grad: 7.00 LVOT LVOT Pk Ed: 1.14 LVOT Mn De: 0.87 LVOT VTI: 0.28 LVOT Pk Grad: 5.00 LVOT Mn Grad: 3.00 LVOT Diam: 2.80 LVOT Area: 6.16 Diastolic Function MV Pk E: 0.83 MV Pk A: 0.35 E/A: 2.40 E'Medial: 7.62 E/E' Med: 10.90 E' Laterial: 11.10 E/E' Lat: 7.50 Right Ventricle TAPSE (mm): 28.00 TVS' De: 16.00 Tricuspid Valve TR Pk De: 2.72 TR Pk Grad: 30.00 RA Press: 8.00 RVSP: 38.00 Great Vessels Aorta Ao Root-2D: 3.40 2.0-3.7 cm Ao Asc: 3.20 2.1-3.4 cm Pulmonary Veins Pulm Vein S/D 1.20 Pulmonary Valve PV Pk De: 0.95 Peak PV Grad: 4.00 Updated in Other Vendor System with Status of Final Gonzalez Joshi MD electronically signed on 04/17/2025 3:26:11 PM with status of Final
[2025-04-17 08:00] VITALS: BP 127/78; PULSE 51; RESP 18; TEMP 36.3; O2SAT 97
--- NOTE | 2025-04-17 11:13 | MHC.CM.PN ---
CM MET WITH PT TO DISCUSS DC PLANNING HE UNDERSTANDS HE WILL HAVE TO GO TO A SNF FOR THE IV ABX HE ALSO UNDERSTANDS IT WILL BE IN [place] HE SAYS HE IS INTERESTED IN SPEAKING TO THE CARBIDE POWDER PROCESSOR AGAIN HE MAY WANT TO START METHADONE CARBIDE POWDER PROCESSOR AWARE REFERRALS SENT FOR SNF PLACEMENT
[2025-04-17] MEDS: methADONE HCl 20 MG/2 ML ORAL.CONC PO (11:59)
--- NOTE | 2025-04-17 12:00 | HO.PM.IMPN ---
Subjective Subjective Date of Service: 04/17/25 Interval History: c/o severe lower back pain radiating down legs; no weakness; no saddle anesthesia; afebrile Review of Systems Review of Systems: Yes all other systems are reviewed and are negative Physical Exam Vital Signs: Vital Signs: Last Vital Signs Temp 97.4 F 04/17/25 08:00 Pulse 51 04/17/25 08:00 Resp 18 04/17/25 08:00 BP 127/78 04/17/25 08:00 Pulse Ox 97 04/17/25 08:00 O2 Del Method Room Air 04/17/25 08:00 BMI result Body Mass Index 30.3 Gen: in no acute distress HEENT: sclera anicteric, moist mucus membranes Neck: supple Lungs: clear to auscultation bilaterally Heart: regular rate and rhythm, no murmurs Abd: soft, non-tender, non-distended Back: midline lower lumbar tenderness Ext: no edema Skin: warm/well-perfused Neuro: alert and oriented x3, no focal weakness Psych: appropriate affect Objective Data Active Medications Acetaminophen (Acetaminophen 325 Mg Tablet) 975 mg PO Q6H PRN PRN Reason: Pain, Mild 1-3,fever,headache Last Admin: 04/15/25 05:18 Dose: 975 mg Documented By: TIMOTHY Calcium Carbonate (Calcium Carbonate 750 Mg Tab.Chew) 750 mg PO Q4H PRN PRN Reason: Heartburn Clonazepam (Clonazepam 1 Mg Tablet) 1 mg PO TID PRN PRN Reason: anxiety/restlessness Last Admin: 04/17/25 07:41 Dose: 1 mg Documented By: OPAL Cyclobenzaprine HCl (Cyclobenzaprine Hcl 5 Mg Tablet) 5 mg PO TID [facility] Enoxaparin Sodium (Enoxaparin Sodium 40 Mg/0.4 Ml Syringe) 40 mg SUBCUT Q24H [facility] Last Admin: 04/16/25 22:35 Dose: 40 mg Documented By: KEITH Hydromorphone HCl (Hydromorphone Hcl 1 Mg/Ml Syringe) 1 mg IVPUSH Q4H PRN; Protocol PRN Reason: Pain, Severe (Pain Scale 7-10) Last Admin: 04/17/25 05:38 Dose: 1 mg Documented By: KEITH Cefazolin Sodium/Dextrose (Ancef) 2 gm in 50 mls @ 100 mls/hr IV Q8H [facility] Last Infusion: 04/17/25 09:57 Dose: Infused Documented By: MALU Ketorolac Tromethamine (Ketorolac Tromethamine 30 Mg/Ml Vial) 30 mg IVPUSH Q6H [facility] Stop: 04/20/25 06:01 Last Admin: 04/17/25 11:35 Dose: 30 mg Documented By: OPAL Magnesium Hydroxide (Milk Of Magnesia 30 Ml Oral.Susp) 30 ml PO DAILY PRN PRN Reason: Constipation Melatonin (Melatonin 3 Mg Tablet) 6 mg PO BEDTIME PRN PRN Reason: Insomnia Ondansetron HCl (Ondansetron Hcl 4 Mg/2 Ml Vial) 4 mg IVPUSH Q8H PRN PRN Reason: Nausea and Vomiting Last Admin: 04/15/25 14:00 Dose: 4 mg Documented By: GRAZTANIKA Oxycodone HCl (Oxycodone Hcl Immed Release 5 Mg Tablet) 10 mg PO Q4H PRN PRN Reason: Pain, Moderate(Pain Scale 4-6) Last Admin: 04/17/25 11:36 Dose: 10 mg Documented By: OPAL Quetiapine Fumarate (Quetiapine Fumarate 400 Mg Tablet) 400 mg PO BEDTIME [facility] Last Admin: 04/16/25 22:36 Dose: 200 mg Documented By: KEITH Comments: pt requested med to be taken later when offered at 2100, pt claimed he only yake 200 mg Sodium Chloride (0.9 % Sodium Chloride Flush 3 Ml Syringe) 3 ml IVFLUSH QSHIFT [facility] Last Admin: 04/17/25 07:45 Dose: 3 ml Documented By: OPAL Labs 04/17/25 05:34 04/17/25 05:34 Labs: Laboratory Results - last 24 hr 04/16/25 04/17/25 18:51 05:34 MCV 87.4 MCH 31.3 MCHC 35.8 RDW 12.5 Plt Count 119 L MPV 10.7 Immature Gran % (Auto) 0.2 Neut % (Auto) 54.2 Lymph % (Auto) 28.7 [place] % (Auto) 14.9 H Eos % (Auto) 1.8 Baso % (Auto) 0.2 Lymph # (Auto) 1.6 [place] # (Auto) 0.8 Eos # (Auto) 0.1 Baso # (Auto) 0.0 Abs Immat Gran (auto) 0.01 Absolute Neuts (auto) 3.0 Absolute Nucleated RBC 0.000 Nucleated RBC % (auto) 0.0 Anion Gap 11 L Estim Creat Clear Calc 199.2 Estimated GFR > 60 Random Glucose 104 Calcium 8.3 L Random Vancomycin 11.4 L Microbiology Microbiology Results: Microbiology 04/14/25 10:02 Blood Culture - Final Blood - Venous Staphylococcus aureus 04/14/25 10:02 Blood Culture - Final Blood - Venous Staphylococcus aureus Assessment and Plan (1) Osteomyelitis of lumbar spine: Status: Acute Plan d4, 35yo M with OUD presenting with low back pain, found to have lumbar osteomyelitis/diskitis with MSSA bacteremia MSSA bacteremia and L5-S1 osteomyelitis/diskitis - change vancomycin + piperacillin-tazobactam to cefazolin 2g IV q8h, repeat BCx 04/[address]ICC after negative x48h, plan 6 wk total IV cefazolin per ID, TTE - pain mgmt with ketorolac, cyclobenzaprine, oxycodone, hydromorphone OUD - Addiction Medicine consultation re methadone, HCV/HIV screen mood disorder: clonazepam, quetiapine VTE ppx: enoxaparin dispo: STR In my clinical judgment, the patient requires continued inpatient hospitalization for the following reasons: IV ABX Total time managing care of this patient today: 35 minutes. Quality Stroke Does the patient have a stroke diagnosis?: No VTE Prior VTE?: No VTE Risk Level:: Medical - moderate - high VTE Device Contraindication: Treatment Not Indicated VTE Drug Contraindication: N/A - Med Ordered
--- NOTE | 2025-04-17 12:14 | HO.ADDICTCON ---
History of Present Illness Date of Service: 04/17/2025 Chief Complaint: BACK PAIN Reason for Consult: IVDU Sources of Information: patient interviewed and chart reviewed HPI Narrative: Patient is a 35 year old male who presented to [facility] ED c/o back pain--found to have osteomyelitis of the spine Per ED admission note, patient reported history of OUD and recent recurrence of use due to back pain. Unclear how much fentanyl he was using, but he also reported taking friends methadone at times. Seen by employee training specialist early in admission, and declined any MOUD, and also denied any withdrawal sx. Today, patient seen by t/w in room 352. He is visibly uncomfortable, restless and requesting methadone be started He states he was taking 30-40mg of his friends methadone. Labs reviewed-UDS +fentanyl, methadone, benzodiazepines Last hepatitis and HIV screen 12/2023 (negative) Past Psychiatric History: Inpatient: 1st hospitalized at age 24. History of multiple psychiatric commitments. 02/2022 [facility], on a [address]. [facility] 10/2021, 06/2020, 04/02/2020; 09/09/2019 [facility]; 2018 unknown hospital. OP:DAVIDA, Irvin Ceballos Past medication trials: seroquel, clonazepam, Thorazine, hydroxyzine Suicide attempts: denies Medical Evaluation Reviewed: Yes Review of Systems Constitutional: Reports as per HPI, Reports body ache(s) and Reports malaise Diagnostics Vital Signs (24Hr): Vital Signs - 24 hr 04/16/25 15:32 04/16/25 20:00 04/17/25 04:00 Temperature 98.5 F 97.5 F 98.5 F Pulse Rate 64 52 66 Respiratory Rate 16 18 18 Blood Pressure 130/67 125/70 114/64 Pulse Oximetry 96 96 98 Oxygen Delivery Method Room Air Room Air Room Air 04/17/25 08:00 Temperature 97.4 F Pulse Rate 51 Respiratory Rate 18 Blood Pressure 127/78 Pulse Oximetry 97 Oxygen Delivery Method Room Air BMI result Body Mass Index 30.3 Labs 04/17/25 05:34 04/17/25 05:34 Labs: Laboratory Results - last 48 hr 04/15/25 04/15/25 04/16/25 19:24 19:45 05:36 WBC 5.1 RBC 3.96 L Hgb 12.2 L Hct 34.9 L MCV 88.1 MCH 30.8 MCHC 35.0 RDW 12.4 Plt Count 101 L MPV 10.6 Immature Gran % (Auto) 0.2 Neut % (Auto) 72.7 Lymph % (Auto) 14.1 L [place] % (Auto) 12.4 H Eos % (Auto) 0.4 Baso % (Auto) 0.2 Lymph # (Auto) 0.7 L [place] # (Auto) 0.6 Eos # (Auto) 0.0 Baso # (Auto) 0.0 Abs Immat Gran (auto) 0.01 Absolute Neuts (auto) 3.7 Absolute Nucleated RBC 0.000 Nucleated RBC % (auto) 0.0 Sodium 136 Potassium 3.5 Chloride 108 Carbon Dioxide 22 Anion Gap 10 L BUN 14 Creatinine 0.67 Estim Creat Clear Calc 193.3 Estimated GFR > 60 Random Glucose 107 Calcium 8.0 L Vancomycin Trough 5.2 L Random Vancomycin Urine Opiates Screen POSITIVE H Ur Buprenorphine Scrn Not Detected Ur Oxycodone Screen Positive H Urine Methadone Screen Positive H Urine Fentanyl Screen POSITIVE H Ur Barbiturates Screen Not Detected Ur Phencyclidine Scrn Not Detected Ur Amphetamines Screen Not Detected U Benzodiazepines Scrn POSITIVE H Urine Cocaine Screen Not Detected U Marijuana (THC) Screen POSITIVE H 04/16/25 04/17/25 18:51 05:34 WBC 5.5 RBC 3.74 L Hgb 11.7 L Hct 32.7 L MCV 87.4 MCH 31.3 MCHC 35.8 RDW 12.5 Plt Count 119 L MPV 10.7 Immature Gran % (Auto) 0.2 Neut % (Auto) 54.2 Lymph % (Auto) 28.7 [place] % (Auto) 14.9 H Eos % (Auto) 1.8 Baso % (Auto) 0.2 Lymph # (Auto) 1.6 [place] # (Auto) 0.8 Eos # (Auto) 0.1 Baso # (Auto) 0.0 Abs Immat Gran (auto) 0.01 Absolute Neuts (auto) 3.0 Absolute Nucleated RBC 0.000 Nucleated RBC % (auto) 0.0 Sodium 141 Potassium 3.6 Chloride 111 H Carbon Dioxide 23 Anion Gap 11 L BUN 13 Creatinine 0.65 Estim Creat Clear Calc 199.2 Estimated GFR > 60 Random Glucose 104 Calcium 8.3 L Vancomycin Trough Random Vancomycin 11.4 L Urine Opiates Screen Ur Buprenorphine Scrn Ur Oxycodone Screen Urine Methadone Screen Urine Fentanyl Screen Ur Barbiturates Screen Ur Phencyclidine Scrn Ur Amphetamines Screen U Benzodiazepines Scrn Urine Cocaine Screen U Marijuana (THC) Screen Imaging Radiology Impressions: ITS Impressions Lumbar Spine CT 04/14/25 08:28 IMPRESSION: Multilevel spondylosis pronounced at L5-S1 without acute fracture or gross listhesis. No gross fluid collection in the prevertebral compartment. Inadequate evaluation of the epidural compartment of the central spinal canal. Discitis osteomyelitis at L5-S1 cannot be entirely excluded. Consider IV contrast enhanced MRI lumbar spine. Electronically signed by: Daren Pond MD 04/14/2025 08:55 AM EDT RP Mental Status Exam Mental Status Exam Patient Appearance: Perspiring Level of Consciousness: Awake, Restless and Alert Thought Process: Intact Thought Content: positive for Intact Judgement: Fair Medications Medications Current Medications Acetaminophen (Acetaminophen 325 Mg Tablet) 975 mg PO Q6H PRN PRN Reason: Pain, Mild 1-3,fever,headache Last Admin: 04/15/25 05:18 Dose: 975 mg Calcium Carbonate (Calcium Carbonate 750 Mg Tab.Chew) 750 mg PO Q4H PRN PRN Reason: Heartburn Clonazepam (Clonazepam 1 Mg Tablet) 1 mg PO TID PRN PRN Reason: anxiety/restlessness Last Admin: 04/17/25 07:41 Dose: 1 mg Cyclobenzaprine HCl (Cyclobenzaprine Hcl 5 Mg Tablet) 5 mg PO TID [facility] Enoxaparin Sodium (Enoxaparin Sodium 40 Mg/0.4 Ml Syringe) 40 mg SUBCUT Q24H [facility] Last Admin: 04/16/25 22:35 Dose: 40 mg Hydromorphone HCl (Hydromorphone Hcl 1 Mg/Ml Syringe) 1 mg IVPUSH Q4H PRN; Protocol PRN Reason: Pain, Severe (Pain Scale 7-10) Last Admin: 04/17/25 05:38 Dose: 1 mg Cefazolin Sodium/Dextrose (Ancef) 2 gm in 50 mls @ 100 mls/hr IV Q8H [facility] Last Infusion: 04/17/25 09:57 Dose: Infused Ketorolac Tromethamine (Ketorolac Tromethamine 30 Mg/Ml Vial) 30 mg IVPUSH Q6H [facility] Stop: 04/20/25 06:01 Last Admin: 04/17/25 11:35 Dose: 30 mg Magnesium Hydroxide (Milk Of Magnesia 30 Ml Oral.Susp) 30 ml PO DAILY PRN PRN Reason: Constipation Melatonin (Melatonin 3 Mg Tablet) 6 mg PO BEDTIME PRN PRN Reason: Insomnia Ondansetron HCl (Ondansetron Hcl 4 Mg/2 Ml Vial) 4 mg IVPUSH Q8H PRN PRN Reason: Nausea and Vomiting Last Admin: 04/15/25 14:00 Dose: 4 mg Oxycodone HCl (Oxycodone Hcl Immed Release 5 Mg Tablet) 10 mg PO Q4H PRN PRN Reason: Pain, Moderate(Pain Scale 4-6) Last Admin: 04/17/25 11:36 Dose: 10 mg Quetiapine Fumarate (Quetiapine Fumarate 400 Mg Tablet) 400 mg PO BEDTIME [facility] Last Admin: 04/16/25 22:36 Dose: 200 mg Sodium Chloride (0.9 % Sodium Chloride Flush 3 Ml Syringe) 3 ml IVFLUSH QSHIFT [facility] Last Admin: 04/17/25 07:45 Dose: 3 ml Allergies Allergies Allergy/AdvReac Type Severity Reaction Status Date / Time Sulfa (Sulfonamide Allergy Unknown RASH Verified 04/14/25 07:16 Antibiotics) (SULFA (SULFONAMIDE ANTIBIOTICS)) sulfamethoxazole (From Allergy Unknown Unknown Verified 04/14/25 07:16 Bactrim) trimethoprim (From Bactrim) Allergy Unknown Unknown Verified 04/14/25 07:16 gluten Allergy Unknown Verified 04/14/25 07:16 Assessment & Plan Assessment & Plan (1) Opioid use disorder: Status: Acute Code(s): F11.90 - Opioid use, unspecified, uncomplicated Assessment and Plan: methadone 20mg X1. t/w reassessed patient 2 hours post dose, and patient resting comfortably will add methadone 10mg PRN dose for withdrawal continue pain medications will continue to follow Total time managing care of this patient today __35__ minutes. PMFSH Past Medical History Medical History Schizo affective schizophrenia Bipolar disorder CVA (cerebral vascular accident) Medical non-compliance Social History Social History Household Members: Family Household Members Other:: Mother, Father Housing: House Do you presently have visiting nurse or other home services: No Alcohol intake: current Alcohol intake frequency: holidays/special occasions only Alcohol type: beer and hard liquor Comment: PT ASLEEP Patient Tobacco Use Status: Never used Tobacco Cigarette Packs Per Day: 1 Cigarettes Per Day: 20.0 Smoked in Last 30 Days: Yes Second Hand Smoke Exposure: No Substance Use Type: IV Drugs Currently Displaying Signs/Symptoms of Drug Intoxication Withdrawal: No Have you been hit, kicked, punched, or otherwise hurt by someone within the past year? If so, by whom?: No Do you feel safe in your current relationship?: No Current Relationship Is there a partner from a previous relationship who is making you feel unsafe now?: No Are you made to feel afraid or neglected: No Advance Directives: No Advance Directives Information Provided: Yes Do you have a plan to hurt others: No Plan Recently lost weight without trying: No Eating poorly because of decreased appetite: No Nutrition Risks: No Nutritional Risk service: No Sexual orientation: Straight/Heterosexual
[2025-04-17 15:12] VITALS: BP 131/81; PULSE 56; RESP 14; TEMP 36.9; O2SAT 98
--- NOTE | 2025-04-17 15:19 | P.CNID_ITS ---
History of Present Illness Data of Consult Service Date: 04/17/25 Requesting physician: Master Maldonado Primary Care Provider: Tommy Best MD HPI Reason for consult: MSSA bacteremia,diskiitis He presents with 10/10 lumbar pain acutely over last day before admission. He says pain severe and cant walk. He has temperature 100.9 and tachycardia to 100s. Blood culture shows MSSA. He has prior injury from jen[employer] work. Tox screen positive for methadone,oxycodone,opiods,fentanyl and benzodiazepine as well as marijuana. He uses drugs from friend MRI concern over OM in lumbar area. Review of Systems 2 Review of Systems: Yes all other systems are reviewed and are negative PMFSH Past Medical History Medical History (Updated 04/17/25 @ 15:31 by Latrice Armstrong MD) Bacteremia Schizo affective schizophrenia Bipolar disorder CVA (cerebral vascular accident) Medical non-compliance Family History Family history: reviewed and not pertinent Social History Social History Household Members: Family Household Members Other:: Mother, Father Housing: House Do you presently have visiting nurse or other home services: No Alcohol intake: current Alcohol intake frequency: holidays/special occasions only Alcohol type: beer and hard liquor Comment: PT ASLEEP Patient Tobacco Use Status: Never used Tobacco Cigarette Packs Per Day: 1 Cigarettes Per Day: 20.0 Smoked in Last 30 Days: Yes Second Hand Smoke Exposure: No Substance Use Type: IV Drugs Currently Displaying Signs/Symptoms of Drug Intoxication Withdrawal: No Have you been hit, kicked, punched, or otherwise hurt by someone within the past year? If so, by whom?: No Do you feel safe in your current relationship?: No Current Relationship Is there a partner from a previous relationship who is making you feel unsafe now?: No Are you made to feel afraid or neglected: No Advance Directives: No Advance Directives Information Provided: Yes Do you have a plan to hurt others: No Plan Recently lost weight without trying: No Eating poorly because of decreased appetite: No Nutrition Risks: No Nutritional Risk service: No Sexual orientation: Straight/Heterosexual Meds Allergies Allergy/AdvReac Type Severity Reaction Status Date / Time Sulfa (Sulfonamide Allergy Unknown RASH Verified 04/14/25 07:16 Antibiotics) (SULFA (SULFONAMIDE ANTIBIOTICS)) sulfamethoxazole (From Allergy Unknown Unknown Verified 04/14/25 07:16 Bactrim) trimethoprim (From Bactrim) Allergy Unknown Unknown Verified 04/14/25 07:16 gluten Allergy Unknown Verified 04/14/25 07:16 Active Medications: Current Medications Acetaminophen (Acetaminophen 325 Mg Tablet) 975 mg PO Q6H PRN PRN Reason: Pain, Mild 1-3,fever,headache Last Admin: 04/15/25 05:18 Dose: 975 mg Calcium Carbonate (Calcium Carbonate 750 Mg Tab.Chew) 750 mg PO Q4H PRN PRN Reason: Heartburn Clonazepam (Clonazepam 1 Mg Tablet) 1 mg PO TID PRN PRN Reason: anxiety/restlessness Last Admin: 04/17/25 07:41 Dose: 1 mg Cyclobenzaprine HCl (Cyclobenzaprine Hcl 5 Mg Tablet) 5 mg PO TID [facility] Enoxaparin Sodium (Enoxaparin Sodium 40 Mg/0.4 Ml Syringe) 40 mg SUBCUT Q24H [facility] Last Admin: 04/16/25 22:35 Dose: 40 mg Hydromorphone HCl (Hydromorphone Hcl 1 Mg/Ml Syringe) 1 mg IVPUSH Q4H PRN; Protocol PRN Reason: Pain, Severe (Pain Scale 7-10) Last Admin: 04/17/25 05:38 Dose: 1 mg Cefazolin Sodium/Dextrose (Ancef) 2 gm in 50 mls @ 100 mls/hr IV Q8H [facility] Last Infusion: 04/17/25 09:57 Dose: Infused Ketorolac Tromethamine (Ketorolac Tromethamine 30 Mg/Ml Vial) 30 mg IVPUSH Q6H [facility] Stop: 04/20/25 06:01 Last Admin: 04/17/25 11:35 Dose: 30 mg Magnesium Hydroxide (Milk Of Magnesia 30 Ml Oral.Susp) 30 ml PO DAILY PRN PRN Reason: Constipation Melatonin (Melatonin 3 Mg Tablet) 6 mg PO BEDTIME PRN PRN Reason: Insomnia Methadone HCl (Methadone Hcl 20 Mg/2 Ml Oral.Conc) 10 mg PO DAILY PRN PRN Reason: Opiate Withdrawal Ondansetron HCl (Ondansetron Hcl 4 Mg/2 Ml Vial) 4 mg IVPUSH Q8H PRN PRN Reason: Nausea and Vomiting Last Admin: 04/15/25 14:00 Dose: 4 mg Oxycodone HCl (Oxycodone Hcl Immed Release 5 Mg Tablet) 10 mg PO Q4H PRN PRN Reason: Pain, Moderate(Pain Scale 4-6) Last Admin: 04/17/25 11:36 Dose: 10 mg Quetiapine Fumarate (Quetiapine Fumarate 400 Mg Tablet) 400 mg PO BEDTIME [facility] Last Admin: 04/16/25 22:36 Dose: 200 mg Sodium Chloride (0.9 % Sodium Chloride Flush 3 Ml Syringe) 3 ml IVFLUSH QSHIFT [facility] Last Admin: 04/17/25 07:45 Dose: 3 ml Home Medications ?Medication ?Instructions ?Recorded ?Confirmed ?Last Taken ?Type clonazepam 1 mg tablet 1 mg PO TID PRN Anxiety 12/1904/14/25 04/14/22 07:00 History ibuprofen 200 mg tablet (Advil) 600 mg PO Q8H PRN Pain 04/14/25 04/14/25 04/13/25 History Physical Exam 2 Vital Signs: Vital Signs: Last Vital Signs Temp 98.4 F 04/17/25 15:12 Pulse 56 04/17/25 15:12 Resp 14 04/17/25 15:12 BP 131/81 04/17/25 15:12 Pulse Ox 98 04/17/25 15:12 O2 Del Method Room Air 04/17/25 15:12 BMI result Body Mass Index 30.3 Const: General: cooperative HEENT: Head: Yes normal to inspection Face and sinus: Yes normal facial exam Mouth: Normal oral and palatal mucosa present Teeth and gingiva: d entition normal Eyes: General: appearance normal, both eyes and all related structures P upils: Equal, round and reactive pupils present Resp: Effort & Inspection: normal respiratory effort Cardio: Rate: regular rate Rhythm: regular rhythm GI: Palpation (GI): Soft to palpation and nontender Back/Spine/Pelvis: Other: pain lower back Skin: General skin exam: no rashes or lesions noted Neuro: General: moves all extremities Cranial nerves: Yes Equal, round and reactive pupils present Extrem: General: Yes normal to inspection Psych: Appearance: grossly normal Results Labs 04/17/25 05:34 04/17/25 05:34 Labs: Short CBC 04/17/25 Range/Units 05:34 WBC 5.5 (4.8-10.8) X10*3/uL Hgb 11.7 L (14.0-18.0) g/dl Hct 32.7 L (42.0-52.0) % Plt Count 119 L (160-400) X10*3/uL BMP 04/17/25 05:34 Sodium 141 Potassium 3.6 Chloride 111 H Carbon Dioxide 23 BUN 13 Creatinine 0.65 Calcium 8.3 L Microbiology Microbiology Results: Microbiology 04/14/25 10:02 Blood - Venous Blood Culture - Final Staphylococcus aureus 04/14/25 10:02 Blood - Venous Blood Culture - Final Staphylococcus aureus Assessment and Plan (1) Discitis: Status: Acute (2) Osteomyelitis of lumbar spine: Status: Acute (3) Bacteremia: Status: Acute Plan IV Kefzol or Daptomycin for six weeks. There is no oral alternative. Check HIV and Hepatitis C if not already. Check TTE Check HIV and Hepatitis C,
--- NOTE | 2025-04-17 16:07 | P.CDIM_ITS ---
PROVIDER RESPONSE TEXT: To clarify, the appropriate diagnosis supported by the clinical indicators: Acute osteomyelitis QUERY TEXT: PHYSICIAN'S DOCUMENTATION REQUEST Date of Query: 04/17/2025 12:41 PM EDT Patient Name: Rai Jasso Admit Date: 04/15/2025 Dear Master Maldonado MD, A review of the medical record indicates additional documentation may be needed. Please review below and update the documentation accordingly. Clinical Indicators: Progress note dated 04/17/25 - MSSA bacteremia and L5-S1 osteomyelitis Change vancomycin and piperacillin-tazobactam to cefazolin 2g IV q8h. MRI 04/14/25: Impression - Findings are mildly suspicious for discitis/osteomyelitis. Based on the above, please clarify in the Progress Notes further specificity regarding the acuity of the documented Osteomyelitis. Acute osteomyelitis Subacute osteomyelitis Chronic osteomyelitis Chronic multifocal osteomyelitis Other (explain) Clinically unable to determine (explain) Thank you, Brie Valencia, CCS, CDIS Use of terms such as suspected, likely, concern for, or probable (associated with a specific diagnosis that is being evaluated, monitored, or treated as if it exists) are acceptable and can be coded in the inpatient setting, when documented at the time of discharge. Please use your independent medical judgment in providing your response. THIS QUERY IS PART OF THE PERMANENT MEDICAL RECORD
[2025-04-17] MEDS: methADONE HCl 20 MG/2 ML ORAL.CONC 10 MG PO (17:17)
[2025-04-17 19:17] VITALS: BP 135/76; PULSE 57; RESP 18; TEMP 36.9; O2SAT 97
--- NOTE | 2025-04-17 22:12 | PC.NURSE ---
pt crying in pain asking for toradol - per pt, toradol works best for pain. note; toradol scheduled for 0000. dr castro notified - ok to give early dose. will cont to monitor
[2025-04-18 03:38] VITALS: BP 138/88; PULSE 64; RESP 20; TEMP 36.8; O2SAT 98
[2025-04-18 06:28] LABS: HIV Num 1 0.06 S/CO (0.00-0.99); ~HepC Num1 0.08 S/CO (0.00-0.79); ~Hepatitis C Antibody Nonreactive (Nonreactive)
[2025-04-18 07:38] VITALS: BP 130/80; PULSE 59; RESP 16; TEMP 36.9; O2SAT 95
[2025-04-18] MEDS: 0.9 % Sodium Chloride Flush 3 ML SYRINGE IVFLUSH ×3 (08:37→22:21)
[2025-04-18 08:55] VITALS: RESP 18
[2025-04-18] MEDS: methADONE HCl 20 MG/2 ML ORAL.CONC 30 MG PO (08:56)
--- NOTE | 2025-04-18 13:32 | P.PNIM_ITS ---
Subjective Subjective Date of Service: 04/18/25 Interval History: back pain improved; now on methadone; afebrile Review of Systems Review of Systems: Yes all other systems are reviewed and are negative Physical Exam 2 Vital Signs: Vital Signs: Last Vital Signs Temp 98.4 F 04/18/25 07:38 Pulse 59 04/18/25 07:38 Resp 18 04/18/25 08:55 BP 130/80 04/18/25 07:38 Pulse Ox 95 04/18/25 07:38 O2 Del Method Room Air 04/18/25 07:38 BMI result Body Mass Index 30.3 Gen: in no acute distress HEENT: sclera anicteric, moist mucus membranes Neck: supple Lungs: clear to auscultation bilaterally Heart: regular rate and rhythm, no murmurs Abd: soft, non-tender, non-distended Back: midline lower lumbar tenderness Ext: no edema Skin: warm/well-perfused Neuro: alert and oriented x3, no focal weakness Psych: appropriate affect Objective Data Active Medications Acetaminophen (Acetaminophen 325 Mg Tablet) 975 mg PO Q6H PRN PRN Reason: Pain, Mild 1-3,fever,headache Last Admin: 04/15/25 05:18 Dose: 975 mg Documented By: TIMOTHY Calcium Carbonate (Calcium Carbonate 750 Mg Tab.Chew) 750 mg PO Q4H PRN PRN Reason: Heartburn Clonazepam (Clonazepam 1 Mg Tablet) 1 mg PO TID PRN PRN Reason: anxiety/restlessness Last Admin: 04/17/25 21:20 Dose: 1 mg Documented By: JOHAN Cyclobenzaprine HCl (Cyclobenzaprine Hcl 5 Mg Tablet) 5 mg PO TID [facility] Last Admin: 04/18/25 08:36 Dose: 5 mg Documented By: MALU Enoxaparin Sodium (Enoxaparin Sodium 40 Mg/0.4 Ml Syringe) 40 mg SUBCUT Q24H [facility] Last Admin: 04/17/25 21:20 Dose: 40 mg Documented By: JOHAN Hydromorphone HCl (Hydromorphone Hcl 1 Mg/Ml Syringe) 1 mg IVPUSH Q4H PRN; Protocol PRN Reason: Pain, Severe (Pain Scale 7-10) Last Admin: 04/18/25 08:55 Dose: 1 mg Documented By: MALU Cefazolin Sodium/Dextrose (Ancef) 2 gm in 50 mls @ 100 mls/hr IV Q8H [facility] Last Infusion: 04/18/25 09:22 Dose: Infused Documented By: MALU Ketorolac Tromethamine (Ketorolac Tromethamine 30 Mg/Ml Vial) 30 mg IVPUSH Q6H [facility] Stop: 04/20/25 06:01 Last Admin: 04/18/25 11:20 Dose: 30 mg Documented By: MALU Magnesium Hydroxide (Milk Of Magnesia 30 Ml Oral.Susp) 30 ml PO DAILY PRN PRN Reason: Constipation Melatonin (Melatonin 3 Mg Tablet) 6 mg PO BEDTIME PRN PRN Reason: Insomnia Methadone HCl (Methadone Hcl 20 Mg/2 Ml Oral.Conc) 10 mg PO DAILY PRN PRN Reason: Opiate Withdrawal Last Admin: 04/17/25 17:17 Dose: 10 mg Documented By: MALU Co-signed By: TIFFANIE Ondansetron HCl (Ondansetron Hcl 4 Mg/2 Ml Vial) 4 mg IVPUSH Q8H PRN PRN Reason: Nausea and Vomiting Last Admin: 04/15/25 14:00 Dose: 4 mg Documented By: RAYMUNDO Oxycodone HCl (Oxycodone Hcl Immed Release 5 Mg Tablet) 10 mg PO Q4H PRN PRN Reason: Pain, Moderate(Pain Scale 4-6) Last Admin: 04/17/25 15:28 Dose: 10 mg Documented By: MALU Quetiapine Fumarate (Quetiapine Fumarate 400 Mg Tablet) 400 mg PO BEDTIME [facility] Last Admin: 04/17/25 21:20 Dose: 200 mg Documented By: JOHAN Comments: pt reports taking 200 not 400. Sodium Chloride (0.9 % Sodium Chloride Flush 3 Ml Syringe) 3 ml IVFLUSH QSHIFT [facility] Last Admin: 04/18/25 08:37 Dose: 3 ml Documented By: MALU Labs 04/17/25 05:34 04/17/25 05:34 Labs: Laboratory Results - last 24 hr 04/18/25 05:38 Hepatitis C Ab (EIA) Nonreactive HIV 1&2 Ab/P24 Ag 4thGn Nonreactive Assessment and Plan (1) Osteomyelitis of lumbar spine: Status: Acute Plan d5, 35yo M with OUD presenting with low back pain, found to have lumbar osteomyelitis/diskitis with MSSA bacteremia MSSA bacteremia and L5-S1 osteomyelitis/diskitis - changed vancomycin + piperacillin-tazobactam to cefazolin 2g IV q8h, repeat BCx 04/[address] after negative x48h, plan 6 wk total IV cefazolin per ID, end date 05/30 if cultures clear, TTE without vegetations - pain mgmt with ketorolac, cyclobenzaprine, oxycodone, hydromorphone OUD - Addiction Medicine started methadone, HCV/HIV screen negative mood disorder: clonazepam, quetiapine VTE ppx: enoxaparin dispo: STR In my clinical judgment, the patient requires continued inpatient hospitalization for the following reasons: IV ABX Total time managing care of this patient today: 35 minutes. Quality Stroke Does the patient have a stroke diagnosis?: No VTE Prior VTE?: No VTE Risk Level:: Medical - moderate - high VTE Device Contraindication: Treatment Not Indicated VTE Drug Contraindication: N/A - Med Ordered
[2025-04-18 15:52] VITALS: BP 139/84; PULSE 73; RESP 19; TEMP 36.8; O2SAT 97
[2025-04-18] MEDS: methADONE HCl 20 MG/2 ML ORAL.CONC 10 MG PO (16:39)
--- NOTE | 2025-04-18 17:54 | MHC.RECOVRN ---
Tw met with pt in - to offer continued support and resources related to substance use. On approach, pt was laying flat in bed and reports ongoing pain, rated 10/10 nothing helps Primary RN entered room and provided pain medication. Pt reports he was taking about 40-50mgs of a friends methadone. I was using an eye dropper and calculated that a dropper was approximately 9mg. I would do about 8 drops a day . Pt is currently prescribed 30mg of methadone and was reminded of additional 10mg prn dose. Tw obtained [place] for [facility] for community methadone dosing. 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 TW available for ongoing support as needed.
[2025-04-18 20:00] VITALS: BP 134/81; PULSE 57; RESP 19; TEMP 36.7; O2SAT 97
[2025-04-19 04:00] VITALS: BP 121/70; PULSE 68; RESP 19; TEMP 36.4; O2SAT 91
[2025-04-19 07:14] VITALS: BP 133/79; PULSE 62; RESP 16; TEMP 36.5; O2SAT 93
[2025-04-19] MEDS: 0.9 % Sodium Chloride Flush 3 ML SYRINGE IVFLUSH ×2 (07:56→15:48)
[2025-04-19] MEDS: methADONE HCl 20 MG/2 ML ORAL.CONC 40 MG PO (08:16)
--- NOTE | 2025-04-19 09:36 | HO.PM.IMPN ---
Subjective Subjective Date of Service: 04/19/25 Interval History: c/o back pain; no fever; repeat blood culture negative so far Review of Systems Review of Systems: Yes all other systems are reviewed and are negative Physical Exam Vital Signs: Vital Signs: Last Vital Signs Temp 97.7 F 04/19/25 07:14 Pulse 62 04/19/25 07:14 Resp 16 04/19/25 07:14 BP 133/79 04/19/25 07:14 Pulse Ox 93 04/19/25 07:14 O2 Del Method Room Air 04/19/25 07:14 BMI result Body Mass Index 30.3 Gen: in no acute distress HEENT: sclera anicteric, moist mucus membranes Neck: supple Lungs: clear to auscultation bilaterally Heart: regular rate and rhythm, no murmurs Abd: soft, non-tender, non-distended Back: midline lower lumbar tenderness Ext: no edema Skin: warm/well-perfused Neuro: alert and oriented x3, no focal weakness Psych: appropriate affect Objective Data Active Medications Acetaminophen (Acetaminophen 325 Mg Tablet) 975 mg PO Q6H PRN PRN Reason: Pain, Mild 1-3,fever,headache Last Admin: 04/15/25 05:18 Dose: 975 mg Documented By: TIMOTHY Calcium Carbonate (Calcium Carbonate 750 Mg Tab.Chew) 750 mg PO Q4H PRN PRN Reason: Heartburn Clonazepam (Clonazepam 1 Mg Tablet) 1 mg PO TID PRN PRN Reason: anxiety/restlessness Last Admin: 04/18/25 22:23 Dose: 1 mg Documented By: TIMOTHY Cyclobenzaprine HCl (Cyclobenzaprine Hcl 5 Mg Tablet) 5 mg PO TID [facility] Last Admin: 04/19/25 08:16 Dose: 5 mg Documented By: MIGDALIA Enoxaparin Sodium (Enoxaparin Sodium 40 Mg/0.4 Ml Syringe) 40 mg SUBCUT Q24H [facility] Last Admin: 04/18/25 21:04 Dose: 40 mg Documented By: TIMOTHY Hydromorphone HCl (Hydromorphone Hcl 1 Mg/Ml Syringe) 1 mg IVPUSH Q4H PRN; Protocol PRN Reason: Pain, Severe (Pain Scale 7-10) Last Admin: 04/19/25 07:53 Dose: 1 mg Documented By: MIGDALIA Cefazolin Sodium/Dextrose (Ancef) 2 gm in 50 mls @ 100 mls/hr IV Q8H [facility] Last Infusion: 04/19/25 09:07 Dose: Infused Documented By: MIGDALIA Ketorolac Tromethamine (Ketorolac Tromethamine 30 Mg/Ml Vial) 30 mg IVPUSH Q6H [facility] Stop: 04/20/25 06:01 Last Admin: 04/19/25 05:53 Dose: 30 mg Documented By: TIMOTHY Magnesium Hydroxide (Milk Of Magnesia 30 Ml Oral.Susp) 30 ml PO DAILY PRN PRN Reason: Constipation Melatonin (Melatonin 3 Mg Tablet) 6 mg PO BEDTIME PRN PRN Reason: Insomnia Methadone HCl (Methadone Hcl 20 Mg/2 Ml Oral.Conc) 10 mg PO DAILY PRN PRN Reason: Opiate Withdrawal Last Admin: 04/18/25 16:39 Dose: 10 mg Documented By: MALU Co-signed By: RADHA Methadone HCl (Methadone Hcl 20 Mg/2 Ml Oral.Conc) 40 mg PO DAILY@0800 [facility] Last Admin: 04/19/25 08:16 Dose: 40 mg Documented By: MIGDALIA Co-signed By: SWATHI Ondansetron HCl (Ondansetron Hcl 4 Mg/2 Ml Vial) 4 mg IVPUSH Q8H PRN PRN Reason: Nausea and Vomiting Last Admin: 04/15/25 14:00 Dose: 4 mg Documented By: RAYMUNDO Oxycodone HCl (Oxycodone Hcl Immed Release 5 Mg Tablet) 10 mg PO Q4H PRN PRN Reason: Pain, Moderate(Pain Scale 4-6) Last Admin: 04/17/25 15:28 Dose: 10 mg Documented By: MALU Quetiapine Fumarate (Quetiapine Fumarate 400 Mg Tablet) 400 mg PO BEDTIME [facility] Last Admin: 04/18/25 22:19 Dose: 200 mg Documented By: TIMOTHY Comments: per patients request Sodium Chloride (0.9 % Sodium Chloride Flush 3 Ml Syringe) 3 ml IVFLUSH QSHIFT [facility] Last Admin: 04/19/25 07:56 Dose: 3 ml Documented By: MIGDALIA Labs 04/17/25 05:34 04/17/25 05:34 Microbiology Microbiology Results: Microbiology 04/18/25 05:39 Blood Culture - Preliminary Blood - Venous No growth after 24 hours. 04/18/25 05:38 Blood Culture - Preliminary Blood - Venous No growth after 24 hours. Assessment and Plan (1) Osteomyelitis of lumbar spine: Status: Acute Plan d6, 35yo M with OUD presenting with low back pain, found to have lumbar osteomyelitis/diskitis with MSSA bacteremia MSSA bacteremia and L5-S1 osteomyelitis/diskitis - changed vancomycin + piperacillin-tazobactam to cefazolin 2g IV q8h on 04/17, repeated BCx 04/18 and order PICC 04/20 as long as negative x48h, plan 6 wk total IV cefazolin per ID, end date 05/30, TTE without vegetations - pain mgmt with ketorolac, cyclobenzaprine, oxycodone, hydromorphone - PT OUD - Addiction Medicine started methadone, HCV/HIV screen negative mood disorder: clonazepam, quetiapine VTE ppx: enoxaparin dispo: STR In my clinical judgment, the patient requires continued inpatient hospitalization for the following reasons: IV ABX Total time managing care of this patient today: 35 minutes. Quality Stroke Does the patient have a stroke diagnosis?: No VTE Prior VTE?: No VTE Risk Level:: Medical - moderate - high VTE Device Contraindication: Treatment Not Indicated VTE Drug Contraindication: N/A - Med Ordered
[2025-04-19] MEDS: oxyCODONE HCl Immed Release 5 MG TABLET 10 MG PO ×2 (09:42→18:39)
--- NOTE | 2025-04-19 11:28 | HO.ADDICTPRO ---
Subjective Subjective Date of Service: 04/19/25 Reason For Visit: BACK PAIN Interim History: Patient seen in follow up for OUD Methadone dose 40mg today Patient awake, alert, appearing more comfortable overall, but still reporting pain feels withdrawal sx are well managed at current dose No restlessness or diaphoresis noted Review of Systems Acute medical concerns: Yes Review of Systems Constitutional: Reports as per HPI Mental Status Exam Mental Status Exam Patient Appearance: Appropriate Level of Consciousness: Awake, Appropriate and Alert Patient Behavior: Appropriate, Talkative and Cooperative Affect Description: Calm Speech Pattern: Clear Thought Process: Intact Thought Content: positive for Intact Judgement: Good Diagnostics Vital Signs (24Hr): Vital Signs - 24 hr 04/18/25 15:52 04/18/25 20:00 04/19/25 04:00 Temperature 98.2 F 98.1 F 97.5 F Pulse Rate 73 57 68 Respiratory Rate 19 19 19 Blood Pressure 139/84 134/81 121/70 Pulse Oximetry 97 97 91 L Oxygen Delivery Method Room Air Room Air Room Air 04/19/25 07:14 Temperature 97.7 F Pulse Rate 62 Respiratory Rate 16 Blood Pressure 133/79 Pulse Oximetry 93 Oxygen Delivery Method Room Air BMI result Body Mass Index 30.3 Labs 04/17/25 05:34 04/17/25 05:34 Labs: Laboratory Results - last 48 hr 04/18/25 05:38 Hepatitis C Ab (EIA) Nonreactive HIV 1&2 Ab/P24 Ag 4thGn Nonreactive Imaging Radiology Impressions: ITS Impressions Lumbar Spine CT 04/14/25 08:28 IMPRESSION: Multilevel spondylosis pronounced at L5-S1 without acute fracture or gross listhesis. No gross fluid collection in the prevertebral compartment. Inadequate evaluation of the epidural compartment of the central spinal canal. Discitis osteomyelitis at L5-S1 cannot be entirely excluded. Consider IV contrast enhanced MRI lumbar spine. Electronically signed by: Daren Pond MD 04/14/2025 08:55 AM EDT Medications Medications Current Medications Acetaminophen (Acetaminophen 325 Mg Tablet) 975 mg PO Q6H PRN PRN Reason: Pain, Mild 1-3,fever,headache Last Admin: 04/15/25 05:18 Dose: 975 mg Calcium Carbonate (Calcium Carbonate 750 Mg Tab.Chew) 750 mg PO Q4H PRN PRN Reason: Heartburn Clonazepam (Clonazepam 1 Mg Tablet) 1 mg PO TID PRN PRN Reason: anxiety/restlessness Last Admin: 04/18/25 22:23 Dose: 1 mg Cyclobenzaprine HCl (Cyclobenzaprine Hcl 5 Mg Tablet) 5 mg PO TID [facility] Last Admin: 04/19/25 08:16 Dose: 5 mg Enoxaparin Sodium (Enoxaparin Sodium 40 Mg/0.4 Ml Syringe) 40 mg SUBCUT Q24H [facility] Last Admin: 04/18/25 21:04 Dose: 40 mg Hydromorphone HCl (Hydromorphone Hcl 1 Mg/Ml Syringe) 1 mg IVPUSH Q4H PRN; Protocol PRN Reason: Pain, Severe (Pain Scale 7-10) Last Admin: 04/19/25 07:53 Dose: 1 mg Cefazolin Sodium/Dextrose (Ancef) 2 gm in 50 mls @ 100 mls/hr IV Q8H [facility] Last Infusion: 04/19/25 09:07 Dose: Infused Ketorolac Tromethamine (Ketorolac Tromethamine 30 Mg/Ml Vial) 30 mg IVPUSH Q6H [facility] Stop: 04/20/25 06:01 Last Admin: 04/19/25 11:19 Dose: 30 mg Magnesium Hydroxide (Milk Of Magnesia 30 Ml Oral.Susp) 30 ml PO DAILY PRN PRN Reason: Constipation Melatonin (Melatonin 3 Mg Tablet) 6 mg PO BEDTIME PRN PRN Reason: Insomnia Methadone HCl (Methadone Hcl 20 Mg/2 Ml Oral.Conc) 10 mg PO DAILY PRN PRN Reason: Opiate Withdrawal Last Admin: 04/18/25 16:39 Dose: 10 mg Methadone HCl (Methadone Hcl 20 Mg/2 Ml Oral.Conc) 40 mg PO DAILY@0800 [facility] Last Admin: 04/19/25 08:16 Dose: 40 mg Ondansetron HCl (Ondansetron Hcl 4 Mg/2 Ml Vial) 4 mg IVPUSH Q8H PRN PRN Reason: Nausea and Vomiting Last Admin: 04/15/25 14:00 Dose: 4 mg Oxycodone HCl (Oxycodone Hcl Immed Release 5 Mg Tablet) 10 mg PO Q4H PRN PRN Reason: Pain, Moderate(Pain Scale 4-6) Last Admin: 04/19/25 09:42 Dose: 10 mg Quetiapine Fumarate (Quetiapine Fumarate 400 Mg Tablet) 400 mg PO BEDTIME [facility] Last Admin: 04/18/25 22:19 Dose: 200 mg Sodium Chloride (0.9 % Sodium Chloride Flush 3 Ml Syringe) 3 ml IVFLUSH QSHIFT [facility] Last Admin: 04/19/25 07:56 Dose: 3 ml Allergies Allergies Allergy/AdvReac Type Severity Reaction Status Date / Time Sulfa (Sulfonamide Allergy Unknown RASH Verified 04/14/25 07:16 Antibiotics) (SULFA (SULFONAMIDE ANTIBIOTICS)) sulfamethoxazole (From Allergy Unknown Unknown Verified 04/14/25 07:16 Bactrim) trimethoprim (From Bactrim) Allergy Unknown Unknown Verified 04/14/25 07:16 gluten Allergy Unknown Verified 04/14/25 07:16 Assessment & Plan Assessment & Plan (1) Opioid use disorder: Status: Acute Code(s): F11.90 - Opioid use, unspecified, uncomplicated Assessment and Plan: methadone 40mg QD +10mg PRN continue PRN pain medications as appropriate will continue to follow Total time managing care of this patient today _15___ minutes.
--- NOTE | 2025-04-19 15:44 | MHC.RECOVRN ---
paperwork has been emailed to [facility] to initiate methadone administration in the community
[2025-04-19 16:00] VITALS: BP 134/83; PULSE 61; RESP 19; TEMP 36.8; O2SAT 95
[2025-04-19] MEDS: methADONE HCl 20 MG/2 ML ORAL.CONC 10 MG PO (16:28)
[2025-04-19 19:52] VITALS: BP 121/78; PULSE 77; RESP 18; TEMP 36.6; O2SAT 93
[2025-04-20] MEDS: oxyCODONE HCl Immed Release 5 MG TABLET 10 MG PO ×2 (00:16→17:32)
[2025-04-20] MEDS: 0.9 % Sodium Chloride Flush 3 ML SYRINGE IVFLUSH ×4 (00:18→19:13)
[2025-04-20 03:24] VITALS: BP 117/61; PULSE 82; RESP 18; TEMP 36.2; O2SAT 90
[2025-04-20 07:21] VITALS: BP 122/72; PULSE 67; RESP 16; TEMP 36.2; O2SAT 94
[2025-04-20] MEDS: methADONE HCl 20 MG/2 ML ORAL.CONC 40 MG PO (08:22)
--- NOTE | 2025-04-20 11:16 | MHC.RECOVRN ---
TW checked in with pt in [id number] to offer continued support and to provide an extra blanket for comfort. Pt reports improved pain management, but it still hurts . Pt requested pain medication and request was relayed to primary RN Pt denies other concerns at this time.
--- NOTE | 2025-04-20 11:39 | MHC.CM.PN ---
PER MD ROUNDS, PT WILL GET HIS LINE TODAY AND BE READY TO DC DELFINO LERMA HAS A BED AND GUEST DOSING AT [facility] IN [place] HAS BEEN INITIATED PT WILL DC ONCE HIS LINE REPORT IS AVAILABLE AND GUEST DOSING ARRANGEMENTS CONFIRMED
--- NOTE | 2025-04-20 12:43 | MHC.RECOVRN ---
paperwork faxed to [employer] for methadone guest dosing phone# [phone] fax#[phone]
--- NOTE | 2025-04-20 12:48 | P.PNIM_ITS ---
Subjective Subjective Date of Service: 04/20/25 Interval History: Back pain slowly improving. Remains tolerant of therapies Review of Systems Denies chest pain Denies shortness of breath Denies nausea vomiting diarrhea Denies fever chills Physical Exam 2 Vital Signs: Vital Signs: Last Vital Signs Temp 97.2 F 04/20/25 07:21 Pulse 67 04/20/25 07:21 Resp 16 04/20/25 07:21 BP 122/72 04/20/25 07:21 Pulse Ox 94 04/20/25 07:21 O2 Del Method Room Air 04/20/25 07:21 BMI result Body Mass Index 30.3 Const: Other: Awake alert no acute distress Resp: Other: Clear to auscultation bilaterally no rales rhonchi or wheezes Cardio: Other: No S4; positive S1-S2; no S3 murmurs rubs or gallops GI: Other: Soft nontender nondistended normoactive bowel sounds Extrem: Other: No edema bilaterally Objective Data Active Medications Acetaminophen (Acetaminophen 325 Mg Tablet) 975 mg PO Q6H PRN PRN Reason: Pain, Mild 1-3,fever,headache Last Admin: 04/15/25 05:18 Dose: 975 mg Documented By: TIMOTHY Calcium Carbonate (Calcium Carbonate 750 Mg Tab.Chew) 750 mg PO Q4H PRN PRN Reason: Heartburn Clonazepam (Clonazepam 1 Mg Tablet) 1 mg PO TID PRN PRN Reason: anxiety/restlessness Last Admin: 04/18/25 22:23 Dose: 1 mg Documented By: TIMOTHY Cyclobenzaprine HCl (Cyclobenzaprine Hcl 5 Mg Tablet) 5 mg PO TID [facility] Last Admin: 04/20/25 08:21 Dose: 5 mg Documented By: BOLA Enoxaparin Sodium (Enoxaparin Sodium 40 Mg/0.4 Ml Syringe) 40 mg SUBCUT Q24H [facility] Last Admin: 04/19/25 22:09 Dose: 40 mg Documented By: TIMOTHY Hydromorphone HCl (Hydromorphone Hcl 1 Mg/Ml Syringe) 1 mg IVPUSH Q4H PRN; Protocol PRN Reason: Pain, Severe (Pain Scale 7-10) Last Admin: 04/20/25 10:44 Dose: 1 mg Documented By: BOLA Cefazolin Sodium/Dextrose (Ancef) 2 gm in 50 mls @ 100 mls/hr IV Q8H [facility] Last Infusion: 04/20/25 09:17 Dose: Infused Documented By: BOLA Magnesium Hydroxide (Milk Of Magnesia 30 Ml Oral.Susp) 30 ml PO DAILY PRN PRN Reason: Constipation Melatonin (Melatonin 3 Mg Tablet) 6 mg PO BEDTIME PRN PRN Reason: Insomnia Methadone HCl (Methadone Hcl 20 Mg/2 Ml Oral.Conc) 10 mg PO DAILY PRN PRN Reason: Opiate Withdrawal Last Admin: 04/19/25 16:28 Dose: 10 mg Documented By: MIGDALIA Co-signed By: IZABELA Methadone HCl (Methadone Hcl 20 Mg/2 Ml Oral.Conc) 40 mg PO DAILY@0800 [facility] Last Admin: 04/20/25 08:22 Dose: 40 mg Documented By: BOLA Co-signed By: RAYMUNDO Ondansetron HCl (Ondansetron Hcl 4 Mg/2 Ml Vial) 4 mg IVPUSH Q8H PRN PRN Reason: Nausea and Vomiting Last Admin: 04/15/25 14:00 Dose: 4 mg Documented By: RAYMUNDO Oxycodone HCl (Oxycodone Hcl Immed Release 5 Mg Tablet) 10 mg PO Q4H PRN PRN Reason: Pain, Moderate(Pain Scale 4-6) Last Admin: 04/20/25 00:16 Dose: 10 mg Documented By: TIMOTHY Quetiapine Fumarate (Quetiapine Fumarate 400 Mg Tablet) 400 mg PO BEDTIME [facility] Last Admin: 04/19/25 22:13 Dose: 200 mg Documented By: TIMOTHY Comments: per patients request Sodium Chloride (0.9 % Sodium Chloride Flush 3 Ml Syringe) 3 ml IVFLUSH QSHIFT [facility] Last Admin: 04/20/25 08:21 Dose: 3 ml Documented By: BOLA Labs 04/17/25 05:34 04/17/25 05:34 Microbiology Microbiology Results: Microbiology 04/18/25 05:38 Blood Culture - Preliminary Blood - Venous No growth after 48 hours. 04/18/25 05:39 Blood Culture - Preliminary Blood - Venous No growth after 48 hours. Assessment and Plan (1) Bacteremia: Status: Acute (2) Osteomyelitis of lumbar spine: Status: Acute Plan Patient is a 35-year-old male with low back pain, discitis/osteomyelitis concern on lumbar MRI 1. Lumbar osteomyelitis/discitis -kefzol 2g Q8hrs -2/2 blood cultures positive for staph aureus - ID consult appreciated - pain management... States Toradol more effective in the narcotics. We will continue with 6 more doses as needed 2.NURA -addiction med consult appreciated -continue methadone as per addiction Medicine full code lovenox Patient will require ongoing hospitalization for IV antibiotics to treat discitis with question of osteomyelitis Quality Stroke Does the patient have a stroke diagnosis?: No VTE Prior VTE?: No VTE Risk Level:: Medical - moderate - high VTE Device Contraindication: Treatment Not Indicated VTE Drug Contraindication: N/A - Med Ordered
[2025-04-20] MEDS: methADONE HCl 20 MG/2 ML ORAL.CONC 10 MG PO (14:01)
[2025-04-20 15:52] VITALS: BP 131/77; PULSE 78; RESP 16; TEMP 36.1; O2SAT 96
--- NOTE | 2025-04-20 16:01 | HO.PICC ---
PICC Line Insertion NPICC Diagnosis: OSteo/Bacteremia Indication: longterm Antibx Pertinent Labs: Reviewed Technique: Following informed consent including risks, benefits and alternatives and using sterile technique including cap and mask, sterile gown, glove and drape, the Right arm was prepped and draped in the usual sterile fashion of full barrier technique with G. Following completion of [place] Protocol the skin and soft tissues were anesthetized with 1% Lidocaine plain. Using ultrasound guidance, Right Basilic vein access was obtained. Over an 0.018 wire through peel-away sheath, a 4Fr Single PowerPICC line PASV was positioned. Catheter length is 42cm internal length, 0cm external length, for a total trimmed length of 42cm. The procedure was performed in 7. Tip verification was performed by Leighton Kelly with Sherlock 3CG. Tip located in SVC. Ultrasound was used to document vein patency and for needle entry. A formal ultrasound picture and cardiac rhythm strip was recorded. [employer] has released the line for use and it is currently dressed with a StatLock, Tegaderm, and CHG disc. Verification has been performed for blood return and line patency. Arm Circumference: 37cm Equipment: [employer] PowerPicc Solo Catheter with Sherlock 3CG Tip Catheter Type: 4Fr Single Power PICC line PASV Lot #: [id number]
[2025-04-20] MEDS: 0.9 % Sodium Chloride Flush 10 ML SYRINGE IVFLUSH (19:18)
[2025-04-20 19:39] VITALS: BP 144/74; PULSE 66; RESP 16; TEMP 36.2; O2SAT 93
[2025-04-21 03:25] VITALS: BP 121/70; PULSE 78; RESP 18; TEMP 36.4; O2SAT 95
[2025-04-21] MEDS: 0.9 % Sodium Chloride Flush 3 ML SYRINGE IVFLUSH (06:53)
[2025-04-21] MEDS: oxyCODONE HCl Immed Release 5 MG TABLET 10 MG PO ×3 (06:55→14:37)
[2025-04-21 07:21] VITALS: BP 119/67; PULSE 63; RESP 16; TEMP 36.9; O2SAT 94
[2025-04-21] MEDS: methADONE HCl 20 MG/2 ML ORAL.CONC 40 MG PO (08:25)
--- NOTE | 2025-04-21 12:39 | P.PNIM_ITS ---
Subjective Subjective Date of Service: 04/21/25 Interval History: No acute issues overnight. Pain control adequate Review of Systems Denies chest pain Denies shortness of breath Denies nausea vomiting diarrhea Denies fever chills Physical Exam 2 Vital Signs: Vital Signs: Last Vital Signs Temp 98.5 F 04/21/25 07:21 Pulse 63 04/21/25 07:21 Resp 16 04/21/25 07:21 BP 119/67 04/21/25 07:21 Pulse Ox 94 04/21/25 07:21 O2 Del Method Room Air 04/21/25 07:21 BMI result Body Mass Index 30.3 Const: Other: Awake alert no acute distress Resp: Other: Clear to auscultation bilaterally no rales rhonchi or wheezes Cardio: Other: No S4; positive S1-S2; no S3 murmurs rubs or gallops GI: Other: Soft nontender nondistended normoactive bowel sounds Extrem: Other: No edema bilaterally Objective Data Active Medications Acetaminophen (Acetaminophen 325 Mg Tablet) 975 mg PO Q6H PRN PRN Reason: Pain, Mild 1-3,fever,headache Last Admin: 04/15/25 05:18 Dose: 975 mg Documented By: TIMOTHY Calcium Carbonate (Calcium Carbonate 750 Mg Tab.Chew) 750 mg PO Q4H PRN PRN Reason: Heartburn Clonazepam (Clonazepam 1 Mg Tablet) 1 mg PO TID PRN PRN Reason: anxiety/restlessness Last Admin: 04/20/25 19:13 Dose: 1 mg Documented By: CHOLO Cyclobenzaprine HCl (Cyclobenzaprine Hcl 5 Mg Tablet) 5 mg PO TID [facility] Last Admin: 04/21/25 08:24 Dose: 5 mg Documented By: OPAL Enoxaparin Sodium (Enoxaparin Sodium 40 Mg/0.4 Ml Syringe) 40 mg SUBCUT Q24H [facility] Last Admin: 04/20/25 21:02 Dose: 40 mg Documented By: CHOLO Hydromorphone HCl (Hydromorphone Hcl 1 Mg/Ml Syringe) 1 mg IVPUSH Q4H PRN; Protocol PRN Reason: Pain, Severe (Pain Scale 7-10) Last Admin: 04/21/25 06:21 Dose: 1 mg Documented By: CHOLO Cefazolin Sodium/Dextrose (Ancef) 2 gm in 50 mls @ 100 mls/hr IV Q8H [facility] Last Infusion: 04/21/25 09:02 Dose: Infused Documented By: OPAL Ketorolac Tromethamine (Ketorolac Tromethamine 30 Mg/Ml Vial) 30 mg IVPUSH Q6H [facility] Stop: 04/23/25 13:14 Last Admin: 04/21/25 06:16 Dose: 30 mg Documented By: CHOLO Magnesium Hydroxide (Milk Of Magnesia 30 Ml Oral.Susp) 30 ml PO DAILY PRN PRN Reason: Constipation Melatonin (Melatonin 3 Mg Tablet) 6 mg PO BEDTIME PRN PRN Reason: Insomnia Methadone HCl (Methadone Hcl 20 Mg/2 Ml Oral.Conc) 10 mg PO DAILY PRN PRN Reason: Opiate Withdrawal Last Admin: 04/20/25 14:01 Dose: 10 mg Documented By: BOLA Co-signed By: SWATHI Methadone HCl (Methadone Hcl 20 Mg/2 Ml Oral.Conc) 40 mg PO DAILY@0800 [facility] Last Admin: 04/21/25 08:25 Dose: 40 mg Documented By: OPAL Co-signed By: LION Ondansetron HCl (Ondansetron Hcl 4 Mg/2 Ml Vial) 4 mg IVPUSH Q8H PRN PRN Reason: Nausea and Vomiting Last Admin: 04/15/25 14:00 Dose: 4 mg Documented By: RAYMUNDO Oxycodone HCl (Oxycodone Hcl Immed Release 5 Mg Tablet) 10 mg PO Q4H PRN PRN Reason: Pain, Moderate(Pain Scale 4-6) Last Admin: 04/21/25 10:58 Dose: 10 mg Documented By: OAPL Quetiapine Fumarate (Quetiapine Fumarate 400 Mg Tablet) 400 mg PO BEDTIME [facility] Last Admin: 04/20/25 21:02 Dose: 200 mg Documented By: CHOLO Comments: pt only wanted half of medication Sodium Chloride (0.9 % Sodium Chloride Flush 3 Ml Syringe) 3 ml IVFLUSH [facility] Last Admin: 04/21/25 06:53 Dose: 3 ml Documented By: OPAL Sodium Chloride (0.9 % Sodium Chloride Flush 10 Ml Syringe) 10 ml IVFLUSH [facility] Last Admin: 04/21/25 06:53 Dose: Not Given Documented By: OPAL Non-Admin Reason: Previously Administered Labs 04/17/25 05:34 04/17/25 05:34 Assessment and Plan (1) Osteomyelitis of lumbar spine: Status: Acute (2) History of intravenous drug abuse: Status: Acute Plan Patient is a 35-year-old male with low back pain, discitis/osteomyelitis concern on lumbar MRI 1. Lumbar osteomyelitis/discitis -kefzol 2g Q8hrs ()... Total of 6 weeks -2/2 blood cultures positive for staph aureus - ID consult appreciated - pain management... States Toradol more effective in the narcotics. We will continue with 6 more doses as needed 2.NURA -addiction med consult appreciated -continue methadone as per addiction Medicine full code lovenox Patient will require ongoing hospitalization for IV antibiotics to treat discitis with question of osteomyelitis Quality Stroke Does the patient have a stroke diagnosis?: No VTE Prior VTE?: No VTE Risk Level:: Medical - moderate - high VTE Device Contraindication: Treatment Not Indicated VTE Drug Contraindication: N/A - Med Ordered
--- NOTE | 2025-04-21 13:54 | MHC.CM.PN ---
pt to be dcd today at 4 to go to [facility]
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
[2025-04-21 15:45] VITALS: BP 129/79; PULSE 62; RESP 18; TEMP 36.4; O2SAT 96
== END 2025-04-21 17:04 | disposition skilled nursing facility (03) | DRG 540 ==
LOC: HO.ED 20:35 → HO.EDOVER 21:36 → HO.S3 04-15 00:04
PROVIDERS: Family Medicine; Admitting Provider Physician Assistant; Emergency Provider Emergency Medicine Emergency Medical Services; PCP Family Medicine; Visit Provider Hospitalist
DX: M46.27 Osteomyelitis of vertebra, lumbosacral region (principal); F11.20 Opioid dependence, uncomplicated; R78.81 Bacteremia; F39 Unspecified mood [affective] disorder; M46.47 Discitis, unspecified, lumbosacral region; B95.61 Methicillin susceptible Staphylococcus aureus infection as the cause of diseases classified elsewhere; Z79.899 Other long term (current) drug therapy
CPT/HCPCS: 36415; 36573; 72132; 72158; 80048; 80053; 80202; 80307; 83605; 83735; 85025; 85652; 86140; 86803; 87040; 87077; 87147; 87186; 87205; 87389; 93306; 97161; 99285; A9585; C1751; J0131; J0690; J0692; J1171; J1650; J1885; J2250; J2270; J2405; J3360; J3373; J3374; J7120; Q9967; S9485

== ENCOUNTER → 2025-04-14 07:19 | Outpatient (BNV) | payer MEDICARE, MEDICAID, SELFPAY | PROVIDERS: Emergency Provider Emergency Medicine Emergency Medical Services; PCP Family Medicine; Visit Provider Radiology Diagnostic Radiology | DX: M47.817 Spondylosis without myelopathy or radiculopathy, lumbosacral region (principal); M46.26 Osteomyelitis of vertebra, lumbar region | CPT/HCPCS: 72132 ==

== ENCOUNTER 2025-04-14 21:33 | Outpatient (BNV) | payer MEDICARE, MEDICAID, SELFPAY | END 2025-04-17 07:52 | PROVIDERS: Admitting Provider Physician Assistant; Emergency Provider Emergency Medicine Emergency Medical Services; PCP Family Medicine; Visit Provider Internal Medicine | DX: I42.2 Other hypertrophic cardiomyopathy (principal); R78.81 Bacteremia | CPT/HCPCS: 93306 ==

== ENCOUNTER → 2025-04-14 21:33 | Outpatient (BNV) | payer MEDICARE, MEDICAID, SELFPAY | PROVIDERS: Admitting Provider Physician Assistant; Emergency Provider Emergency Medicine Emergency Medical Services; PCP Family Medicine; Visit Provider Nurse Practitioner Psychiatric/Mental Health | DX: F11.90 Opioid use, unspecified, uncomplicated (principal) | CPT/HCPCS: 99222 ==

== ENCOUNTER → 2025-04-14 21:33 | Outpatient (BNV) | payer MEDICARE, MEDICAID, SELFPAY | PROVIDERS: Admitting Provider Physician Assistant; Emergency Provider Emergency Medicine Emergency Medical Services; PCP Family Medicine; Visit Provider Hospitalist | DX: M46.26 Osteomyelitis of vertebra, lumbar region (principal) | CPT/HCPCS: 99223; 99232 ==

== ENCOUNTER → 2025-04-14 21:33 | Outpatient (BNV) | payer MEDICARE, MEDICAID, SELFPAY | PROVIDERS: Admitting Provider Physician Assistant; Emergency Provider Emergency Medicine Emergency Medical Services; PCP Family Medicine; Visit Provider Internal Medicine | DX: M46.40 Discitis, unspecified, site unspecified (principal); M46.26 Osteomyelitis of vertebra, lumbar region; R78.81 Bacteremia | CPT/HCPCS: 99222 ==

== ENCOUNTER 2025-05-26 20:11 | Emergency (ER) | payer MEDICARE, MEDICAID, SELFPAY ==
[2025-05-26 20:14] VITALS: BP 136/71; PULSE 117; RESP 20; TEMP 36.7; O2SAT 94; BMI 29.9
--- NOTE | 2025-05-26 20:23 | ECG_ITS ---
Test Reason : TACHY Blood Pressure : */* mmHG Vent. Rate : 106 BPM Atrial Rate : 106 BPM P-R Int : 158 ms QRS Dur : 84 ms QT Int : 350 ms P-R-T Axes : 7 76 26 degrees QTcB Int : 464 ms Sinus tachycardia Cannot rule out Anterior infarct , age undetermined Abnormal ECG When compared with ECG of 11-Jan-2022 10:42, Questionable change in QRS axis Referred By: Generic ED Physician Electronically Signed By: Roderick Cade
[2025-05-26 20:49] LABS: MANUAL DIFF FLAG NO
[2025-05-26 20:54] LABS: Hematocrit 38.6 % (42.0-52.0); Hemoglobin 13.2 g/dl (14.0-18.0); Imm Gran Abs Auto 0.01 X10*3/uL (0.00-0.03); Imm Gran Pct Auto 0.2 % (0.0-0.4); Lymphocytes Absolute Auto 2.8 X10*3/uL (1.2-4.9); Mean Corpuscular HGB Conc 34.2 g/dl (31.0-36.0); Mean Corpuscular Hemoglobin 29.3 pg (27.0-33.0); Mean Corpuscular Volume 85.8 fL (80.0-98.0); NRBC Abs Auto 0.000 X10*3/uL (0.0-0.012); NRBC Pct Auto 0.0 /100WBC (0.0-0.2); Platelet Count 202 X10*3/uL (160-400); Red Blood Count 4.50 X10*6/uL (4.60-5.80); White Blood Count 6.3 X10*3/uL (4.8-10.8)
--- OUTSIDE RECORDS SUMMARY | 2025-05-26 21:06 | XMS_ITS | Encounter Summary ---
Author Organization [facility] Address [address] [place] [id number] Phone Care Team Providers Care Digitizer Operator Name Role Phone Esther Feliciano MD Primary Care Provider [phone] Tommy Best MD Primary Care Provider + Encounter Details Date Type Department Care Team (Late st Contact Info) Description 10/16/2020 Procedure Pass [facility], Ct Scan - [facility] [address] [place] [address] Social History Tobacco Use Types Packs/Day Years [...] 7:33 PM EDT Zaire Amaya RN * [place] Suicide Severity Rating Scale (Screener/Recent Self-Report) Question [...] documented as of this encounter Care Teams Digitizer Operator Relationship Specialty Start Date End Date Esther Feliciano MD [address] [place] [address], [address] [place] [address] [email or web address] PCP - General Internal Medicine 04/23/20 11/20/22 Tommy Best MD [address] [place] [id number] PCP - General Family Medicine 11/21/22 documented as of this encounter Additional Source Comments The information contained in this document represents components of the legal health record. It is not the complete legal health record.[facility]
--- OUTSIDE RECORDS SUMMARY | 2025-05-26 21:06 | XMS_ITS | Encounter Summary ---
Author Organization [facility] Address [address] [place] [address] Phone Care Team Providers Care Contact Acid Plant Operator Helper Name Role Phone Unavailable Primary Care Provider Unavailabl e Encounter Details Date Type Department Care Team (Late st Contact Info) Description 12/16/2009 Documentation EM Family Medicine [address] [place] [address] Family Medicine, Physician [facility] [place] [address] Social History Tobacco Use Types [...]
--- OUTSIDE RECORDS SUMMARY | 2025-05-26 21:06 | XMS_ITS | Clinical Summary ---
Author Organization [employer] Address [address] [facility] [address] [place] [address] Care Team Providers Care Managing Manager Name Role Phone Unavailable Primary Care Provider [...] patient's age to complete this topic Insurance [facility] MEDICAID STAND ADULT
--- OUTSIDE RECORDS SUMMARY | 2025-05-26 21:06 | XMS_ITS | Encounter Summary ---
Author Organization [facility] Address [address] [facility] [address] [place] [address] Phone Care Team Providers Care Clinical Programmer Name Role Phone Ubaldo Lutz MD Primary Care Provider [phone] Esther Feliciano MD Primary Care Provider Unknown, Unknown Primary Care Provider Cheyenne rojas Pcp, Unknown Primary Care Provider UnavailEsther Wright MD Primary Care Provider Tommy Best MD Primary Care Provider + Encounter Details Date Type Department Care Team (Late st Contact Info) Description 01/29/2018 Procedure Pass [facility], [address] [address] Social History Tobacco Use Types Packs/Day Years [...] documented as of this encounter Care Teams Clinical Programmer Relationship Specialty Start Date End Date Ubaldo Lutz MD PCP - General Internal Medicine 01/28/18 04/11/19 Esther Feliciano MD [address] [place] [phone] [email or web address] PCP - General Internal Medicine 04/12/19 09/26/19 Unknown, Unknown, [address] [place] [id number] PCP - General 09/27/19 10/02/19 Pcp, Unknown PCP - General 10/03/19 04/22/20 Esther Feliciano MD [address] [place] [phone] [email or web address] PCP - General Internal Medicine 04/23/20 11/20/22 Tommy Best MD [address] [place] [id number] PCP - General Family Medicine 11/21/22 documented as of this encounter Additional Source Comments The information contained in this document represents components of the legal health record. It is not the complete legal health record.[facility]
--- OUTSIDE RECORDS SUMMARY | 2025-05-26 21:06 | XMS_ITS | Encounter Summary ---
Author Organization [facility] Address [address] [place] [phone] Phone Care Team Providers Care Chicken Cutter Name Role Phone Pcp, Unknown Primary Care Provider Esther Harry MD Primary Care Provider [phone] Tommy Best MD Primary Care Provider + Encounter Details Date Type Department Care Team (Late st Contact Info) Description 03/31/2020 Procedure Pass [facility], Ct Scan - [facility] [address] [place] [address] Social History Tobacco Use Types Packs/Day Years [...] documented as of this encounter Care Teams Chicken Cutter Relationship Specialty Start Date End Date Pcp, Unknown PCP - General 10/03/19 04/22/20 Esther Feliciano MD [address] [place] [address], [address] [place] [address] PCP - General Internal Medicine 04/23/20 11/20/22 Tommy Best MD [address] [place] [id number] PCP - General Family Medicine 11/21/22 documented as of this encounter Additional Source Comments The information contained in this document represents components of the legal health record. It is not the complete legal health record.[facility]
--- OUTSIDE RECORDS SUMMARY | 2025-05-26 21:06 | XMS_ITS | Encounter Summary ---
Author Organization [facility] Address [address] [facility] [address] [place] [address] Phone Care Team Providers Care Photographer News Name Role Phone Ubaldo Lutz MD Primary Care Provider [phone] Esther Feliciano MD Primary Care Provider [phone] Unknown, Unknown Primary Care Provider Cheyenne rojas Pcp, Unknown Primary Care Provider UnavailEsther Wright MD Primary Care Provider Tommy Best MD Primary Care Provider + Encounter Details Date Type Department Care Team (Late st Contact Info) Description 02/02/2018 Documentation [facility] Infectious Disease Virtual Department [address] [place] [phone] Pcp, Not Required [address] [place] [address] Social History Tobacco Use Types Packs/Day Years [...] documented as of this encounter Care Teams Photographer News Relationship Specialty Start Date End Date Ubaldo Lutz MD PCP - General Internal Medicine 01/28/18 04/11/19 Esther Feliciano MD [facility] [employer] [facility], [address] [place] [address] [email or web address] PCP - General Internal Medicine 04/12/19 09/26/19 Unknown, Unknown, [address] [place] [address], [address] [place] [address] PCP - General 09/27/19 10/02/19 Pcp, Unknown PCP - General 10/03/19 04/22/20 Esther Feliciano MD [address] [place] [address], [address] [place] [phone] [email or web address] PCP - General Internal Medicine 04/23/20 11/20/22 Tommy Best MD [address] [place] [id number] PCP - General Family Medicine 11/21/22 documented as of this encounter Additional Source Comments The information contained in this document represents components of the legal health record. It is not the complete legal health record.[facility]
--- OUTSIDE RECORDS SUMMARY | 2025-05-26 21:06 | XMS_ITS | Clinical Summary ---
Author Organization [facility] Address [address] [place] [address] Phone Care Team Providers Care Soft Drink Powder Mixer Name Role Phone Tommy Best MD Primary [...] Date/Time Associated Diagnosis Comments BASIC METABOLIC PANEL (BMP) STAT 10/16/2020 8:21 PM EDT LIPID PANEL Routine 10/05/2019 6:40 AM EDT from Last 3 Months or Most Recently Relevant to Health Maintenance Results * (ABNORMAL) Basic metabolic panel (10/16/2020 8:21 PM EDT) SODIUM 138 133 - 146 mmol/L [facility] CHLORIDE 102 96 - 108 mmol/L [facility] POTASSIUM 3.9 3.3 - 5.1 mmol/L [facility] Comment:Specimen slightly he molyzed, result may be falsely elevated. CO2 24 21 - 35 mmol/L [facility] BUN 20(H) 6 - 19 mg/dL [facility] CREATININE 1.20 0.5 - 1.5 mg/dL [facility] GLUCOSE 105(H) 70 - 99 mg/dL [facility] CALCIUM 9.6 8.4 - 10.3 mg/dL [facility] EGFR 80 >59 mL/min/1.7 3m2 [facility] Comment:Estimated glomerular filtration rate calculated using the CKD-EPI equation. ANION GAP 16 10 - 20 mmol/L [facility] Blood 10/16/2020 8:21 PM EDT 10/16/2020 8:28 PM EDT us Long Pittman PA-C LAB BLOOD BKR ORDERABLES Fin al Result Performing Organization Address City/[facility] [place] Co de Phone Number [address] [address] * Lipid panel (10/05/2019 6:40 AM EDT) HDL 44 mg/dL [facility] Comment: Interpretation <40 mg/dL: Low HDL cholesterol (major risk factor for CHD) Greater than or equal to 60 mg/dL: High HDL cholesterol ( negative risk factor for CHD) HDL - cholesterol is affected by a number of factors, e.g. smoking, excerise, hormones, sex and age. CHOLESTEROL 149 0 - 240 mg/dL [facility] TRIGLYCERIDES 121 30 - 160 mg/dL [facility] LDL 81 50 - 129 mg/dL [facility] Comment: LDL levels in terms of risk for coronary heart disease: <100 mg/dL: Optimal 100-129 mg/dL: Near or above optimal 130-159 mg/dL: Borderline high 160-189 mg/dL: High >190 mg/dL: Very High CARDIAC RISK RATIO 3.4 3.4 - 5.0 C [facility] Blood 10/05/2019 6:40 AM EDT 10/05/2019 6:55 AM EDT us Gladis Banegas MD LAB BLOOD BKR ORDERABLES Clarita l Result Performing Organization Address City/[facility]/ZIP Co de Phone Number [address] [address] from Last 3 Months or Most Recently Relevant to Health Maintenance [place] [address] [place] [address] [place] [address] [place] [address] [employer] [facility] [employer] [place] [address] [place] [address] [place] [address] [employer] Advance Directives For more information, please contact: [phone] (9AM - 5PM [place], Thursday-Thursday) * Full Code (Presumed) (Latest Code Status on File) Date Activated Date Inactivated Comments 10/04/2019 3:01 PM 10/11/2019 12:38 PM * Full Code (Presumed) Date Activated Date Inactivated Comments 01/30/2018 11:57 AM 01/30/2018 7:47 PM * Full Code (Confirmed) Date Activated Date Inactivated Comments 01/29/2018 3:14 AM 01/30/2018 11:57 AM Question Answer Comments Code Status Confirmed With: Patient Care Teams Soft Drink Powder Mixer Relationship Specialty Start Date End Date Tommy Best MD [address] [place] [address] PCP - General Family Medicine 11/21/22 Additional Source Comments The information contained in this document represents components of the legal health record. It is not the complete legal health record.[facility]
--- OUTSIDE RECORDS SUMMARY | 2025-05-26 21:06 | XMS_ITS | Encounter Summary ---
Author Organization [facility] Address [address] [place] [address] Phone Care Team Providers Care Animal Laboratory Helper Name Role Phone Pcp, Unknown Primary Care Provider Esther Harry MD Primary Care Provider [phone]- [phone] Tommy Best MD Primary Care Provider + Encounter Details Date Type Department Care Team (Late st Contact Info) Description 03/31/2020 Procedure Pass [facility], Ct Scan - [facility] [address] [place] [address] Social History Tobacco Use Types Packs/Day Years [...] documented as of this encounter Care Teams Animal Laboratory Helper Relationship Specialty Start Date End Date Pcp, Unknown PCP - General 10/03/19 04/22/20 Esther Feliciano MD [address] [place] [address], 2[address] [place] [address] PCP - General Internal Medicine 04/23/20 11/20/22 Tommy Best MD [address] [place] [address] PCP - General Family Medicine 11/21/22 documented as of this encounter Additional Source Comments The information contained in this document represents components of the legal health record. It is not the complete legal health record.[facility]
--- OUTSIDE RECORDS SUMMARY | 2025-05-26 21:06 | XMS_ITS | Encounter Summary ---
Author Organization [facility] Address [address] [place] [address] Phone Care Team Providers Care Test Center Administrator Name Role Phone Unavailable Primary Care Provider Unavailabl e Encounter Details Date Type Department Care Team (Late st Contact Info) Description 05/21/2017 Conversion Encounter [facility] - [address] [address] Social History Tobacco Use Types Packs/Day Years [...]
--- OUTSIDE RECORDS SUMMARY | 2025-05-26 21:06 | XMS_ITS | Encounter Summary ---
Author Organization [facility] Address [address] [place] [address] Phone Care Team Providers Care Cell Assembly Pinner Name Role Phone Esther Feliciano MD Primary Care Provider [phone] Tommy Best MD Primary Care Provider + Encounter Details Date Type Department Care Team (Late st Contact Info) Description 10/16/2020 Procedure Pass [facility], Ct Scan - [facility] [address] [place] [address] Social History Tobacco Use Types Packs/Day Years [...] 7:33 PM EDT Zaire Amaya RN * [place] Suicide Severity Rating Scale (Screener/Recent Self-Report) Question [...] documented as of this encounter Care Teams Cell Assembly Pinner Relationship Specialty Start Date End Date Esther Feliciano MD [address] [place] [address], [address] [place] [address] [email or web address] PCP - General Internal Medicine 04/23/20 11/20/22 Tommy Best MD [address] [place] [address] PCP - General Family Medicine 11/21/22 documented as of this encounter Additional Source Comments The information contained in this document represents components of the legal health record. It is not the complete legal health record.[facility]
--- OUTSIDE RECORDS SUMMARY | 2025-05-26 21:06 | XMS_ITS | Encounter Summary ---
Author Organization [facility] Address [address] [facility] [address] [place] [address] Phone Care Team Providers Care Lubricating Engineer Name Role Phone Ubaldo Lutz MD Primary Care Provider [phone] Esther Feliciano MD Primary Care Provider Unknown, Unknown Primary Care Provider Cheyenne rojas Pcp, Unknown Primary Care Provider UnavailEsther Wright MD Primary Care Provider Tommy Best MD Primary Care Provider + Encounter Details Date Type Department Care Team (Late st Contact Info) Description 01/30/2018 Procedure Pass OR Admitting Dept - [facility] Department [address] [place] [address] Social History Tobacco Use Types Packs/Day Years [...] documented as of this encounter Care Teams Lubricating Engineer Relationship Specialty Start Date End Date Ubaldo Lutz MD PCP - General Internal Medicine 01/28/18 04/11/19 Esther Feliciano MD [address] [place] [address], [address] [place] [address] [email or web address] PCP - General Internal Medicine 04/12/19 09/26/19 Unknown, Unknown, [address] [place] [address], [address] [place] [address] PCP - General 09/27/19 10/02/19 Pcp, Unknown PCP - General 10/03/19 04/22/20 Esther Feliciano MD [address] [place] [address], [address] [place] [address] PCP - General Internal Medicine 04/23/20 11/20/22 Tommy Best MD [address] [place] [address] PCP - General Family Medicine 11/21/22 documented as of this encounter Additional Source Comments The information contained in this document represents components of the legal health record. It is not the complete legal health record.[facility]
--- OUTSIDE RECORDS SUMMARY | 2025-05-26 21:06 | XMS_ITS | Clinical Summary ---
Author Organization [facility] Address [address] [place] [address] Phone Care Team Providers Care Computer Repair Instructor Name Role Phone Unavailable Primary Care Provider [...]
[2025-05-26 21:08] LABS: Alanine Aminotransferase 21 U/L (0-40); Albumin Level 4.8 g/dL (3.5-5.0); Alkaline Phosphatase 169 U/L (39-117); Anion Gap 16 (12-20); Aspartate Amino Transferase 47 U/L (5-37); Blood Urea Nitrogen 21 mg/dL (9-16); Calcium 9.5 mg/dL (8.4-10.2); Carbon Dioxide 24 mmol/L (22-29); Chloride 104 mmol/L (96-108); Creatinine Clr Calc Pharmacy 147.9; Estimated Glomerular Filt Rate > 60; Potassium 4.0 mmol/L (3.3-5.1); Sodium 140 mmol/L (135-145); Total Protein 8.1 g/dL (6.5-8.0)
--- NOTE | 2025-05-26 21:13 | ED.GENADULT ---
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 He was admitted here on 04/14 and discharged on 04/21/25 to [facility] [place] - he states they changed his discharge date to 05/25/2025 and he was sent out with a PICC line in right upper arm. He in fact left AMA on 04/23 2025. He denies this to me repeatedly and states it was a planned between all of them. I am confused why they would let someone with a history of drug abuse walk out with a PICC line. Now he is in our emergency department asking for the PICC line to be removed at this time, the dressing is falling off and he adamantly denies he injected anything into. He refuses to stay for any IV antibiotics, he does not want labs, he wants oral antibiotics. He denies SI or HI. He states he feels fine and has no infectious symptoms and no issues. Per discussion with dread Crissy apparently he just walked out on 04/23/2025 2 days after admission there with a PICC line in his arm When I went to speak to another patient he attempted to walk out after I told him we are going to be removing the PICC line as he had asked but also the dressing is dirty and coming off. I was able to talk to him and he agreed to have it pulled complaint: Once PICC line removed Onset (ago): day(s) (05/24/2025) Location: right and upper extremity Radiation: non-radiation Severity: mild Relieving factors: none Exacerbating factors: none Associated symptoms: denies other symptoms Treatments prior to arrival: none Related Data Home Medications ?Medication ?Instructions ?Recorded ?Confirmed ibuprofen 200 mg tablet (Advil) 600 mg PO Q8H PRN Pain 04/14/25 04/14/25 Previous Rx's ?Medication ?Instructions ?Recorded quetiapine 400 mg tablet 400 mg PO BEDTIME #30 tabs 11/20/21 cefazolin 2 gram/50 mL in dextrose See Rx Instructions .Route 04/21/25 (iso-osmotic) intravenous piggyback .COMPLEX 6 weeks #72 ea clonazepam 1 mg tablet 1 mg PO TID PRN Anxiety #30 tabs 04/21/25 oxycodone 10 mg tablet 10 mg PO Q6H PRN pain #30 tabs 04/21/25 methadone 10 mg tablet 50 mg (5 x 10 mg) PO DAILY #150 04/22/25 tabs cephalexin 500 mg capsule 500 mg PO QID 7 days #28 caps 05/26/25 Allergies Allergy/AdvReac Type Severity Reaction Status Date / Time Sulfa (Sulfonamide Allergy Unknown RASH Verified 05/26/25 20:20 Antibiotics) (SULFA (SULFONAMIDE ANTIBIOTICS)) sulfamethoxazole (From Allergy Unknown Unknown Verified 05/26/25 20:20 Bactrim) trimethoprim (From Bactrim) Allergy Unknown Unknown Verified 05/26/25 20:20 gluten Allergy Unknown Verified 05/26/25 20:20 Review of Systems Review of Systems: Yes all other systems are reviewed and are negative [facility] Past Medical History Attestation statement: The following information was validated with the patient. Source: old records reviewed Medical History Opioid use disorder History of intravenous drug abuse Back pain Bacteremia Schizo affective schizophrenia Bipolar disorder CVA (cerebral vascular accident) Medical non-compliance Social History Social History Household Members: Family Household Members Other:: Mother, Father Housing: House Do you presently have visiting nurse or other home services: No Alcohol intake: current Alcohol intake frequency: holidays/special occasions only Alcohol type: beer and hard liquor Comment: PT ASLEEP Patient Tobacco Use Status: Never used Tobacco Cigarette Packs Per Day: 1 Cigarettes Per Day: 20.0 Second Hand Smoke Exposure: No Substance Use Type: IV Drugs Advance Directives: No Advance Directives Information Provided: No Do you have a plan to hurt others: No Plan service: No Sexual orientation: Straight/Heterosexual Physical Exam ED Vital Signs: Vital Signs - 24 hr 05/26/25 20:14 05/26/25 21:34 Temperature 98.1 F 98.1 F Pulse Rate 117 H 117 H Respiratory Rate 20 20 Blood Pressure 136/71 136/71 Pulse Oximetry 94 94 Oxygen Delivery Method Room Air Room Air BMI result Body Mass Index 29.9 Appearance: Alert. Oriented X3. No acute distress. Anxious and pacing Eyes: Pupils equal, round and reactive to light. ENT: Pharynx normal. Atraumatic Neck: Normal inspection. Neck supple. CVS: . Pulses normal. Respiratory: No respiratory distress. Abdomen: Atraumatic Skin: Skin warm and dry. Normal skin color. Normal skin turgor. Extremities: No lower extremity edema. Right PICC line dressing is removing the line itself is exposed proximally there is no external signs of infection I see no purulence on the line itself Neuro: Oriented X 3. No motor deficit. No sensory deficit. 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 He did try to walk out prior to removal, I was able to get him to come back into the department and we removed it without incident. He is refusing to stay for labs, IV Ancef, at this time I am going to start him on oral cephalexin. I did give him recently returned. He will be leaving AMA. He is GCS 15 and can make this decision. Please note he left AMA on April 23, 2020 11/19/2019 days after presentation to this facility he is in fact likely been walking around with a PICC line in his arm and using it Differential Diagnosis Differential Diagnoses: The differential diagnosis associated with the presentation includes Osteomyelitis, substance abuse, noncompliance Admission/Observation Consideration of admission/observation: Escalation of care including admission/observation considered He refuses Lab Data 05/26/25 20:42 05/26/25 20:42 Labs: Lab Results 11/07/25 Range/Units 20:42 WBC 6.3 (4.8-10.8) X10*3/uL RBC 4.50 L D (4.60-5.80) X10*6/uL Hgb 13.2 L (14.0-18.0) g/dl Hct 38.6 L (42.0-52.0) % MCV 85.8 (80.0-98.0) fL MCH 29.3 (27.0-33.0) pg MCHC 34.2 (31.0-36.0) g/dl RDW 12.1 (11.0-16.0) % Plt Count 202 D (160-400) X10*3/uL MPV 10.5 (9.4-12.4) fL Immature Gran % (Auto) 0.2 (0.0-0.4) % Neut % (Auto) 43.5 L (45-73) % Lymph % (Auto) 44.6 H (20-40) % [place] % (Auto) 7.9 (2-11) % Eos % (Auto) 3.3 (0-4) % Baso % (Auto) 0.5 (0-2) % Lymph # (Auto) 2.8 (1.2-4.9) X10*3/uL [place] # (Auto) 0.5 (0.1-1.2) X10*3/uL Eos # (Auto) 0.2 (0.0-0.4) X10*3/uL Baso # (Auto) 0.0 (0.0-0.2) X10*3/uL Abs Immat Gran (auto) 0.01 (0.00-0.03) X10*3/uL Absolute Neuts (auto) 2.8 (2.0-8.3) x10*3/uL Absolute Nucleated RBC 0.000 (0.0-0.012) X10*3/uL Nucleated RBC % (auto) 0.0 (0.0-0.2) /100WBC Sodium 140 (135-145) mmol/L Potassium 4.0 (3.3-5.1) mmol/L Chloride 104 (96-108) mmol/L Carbon Dioxide 24 (22-29) mmol/L Anion Gap 16 (12-20) BUN 21 H (9-16) mg/dL Creatinine 0.87 (0.5-1.4) mg/dL Estim Creat Clear Calc 147.9 Estimated GFR > 60 Random Glucose 77 (60-115) mg/dL Lactic Acid 1.2 (0.5-2.0) mmol/L Calcium 9.5 D (8.4-10.2) mg/dL Total Bilirubin 0.4 (0.0-1.0) mg/dL AST 47 H (5-37) U/L ALT 21 (0-40) U/L Alkaline Phosphatase 169 H (39-117) U/L Total Protein 8.1 H (6.5-8.0) g/dL Albumin 4.8 (3.5-5.0) g/dL External Record Review External record reviewed: Inpatient record, Outpatient record and Prior outpatient labs Prescription Management I considered prescription management with: Antibiotic Discharge Plan Discharge Clinical Impression: Osteomyelitis of lumbar spine Patient Disposition: Left Against Medical Advice Instructions: Cephalexin (By mouth), Against Medical Advice (ED) Additional Instructions: As discussed your total 6 week course of IV Ancef should be completed on 05/29/2025 It is recommended that you stay for admission to the hospital for the full course of IV antibiotics, at this time you have declined I am going to switch you to oral Keflex and and hopefully this will help You can return at any time to complete your IV antibiotic course, he should return for fevers greater than 100.4, any new concerns for infection, or any other concerns If you notice bleeding or drainage from the PICC line site you should seek care, it might lose a little bit apply pressure, and a strong Band-Aid Prescriptions: New cephalexin 500 mg capsule 500 mg PO QID 7 Days Qty: 28 0RF No Action quetiapine 400 mg Tablet 400 mg PO BEDTIME Qty: 30 0RF ibuprofen [Advil] 200 mg Tablet 600 mg PO Q8H PRN (Reason: Pain) cefazolin in dextrose (iso-os) 2 gram/50 mL Piggyback See Rx Instructions .ROUTE .COMPLEX 42 Days Qty: 72 0RF Rx Instructions: 2 g in 50 mL dextrose q.8 hours... Last dose 05/29/25 oxycodone 10 mg tablet 10 mg PO Q6H PRN (Reason: pain) Qty: 30 0RF Rx Instructions: Partial Fill upon patient request. clonazepam 1 mg tablet 1 mg PO TID PRN (Reason: Anxiety) Qty: 30 0RF methadone 10 mg tablet 50 mg PO DAILY Qty: 150 0RF Rx Instructions: Partial Fill upon patient request. Interventions: ED Discharge Assessment Last Done: 05/26/25 21:34 Discharge Date/Time: 05/26/25 21:35 Print Language: Romanian
[2025-05-26 21:34] VITALS: BP 136/71; PULSE 117; RESP 20; TEMP 36.7; O2SAT 94
--- NOTE | 2025-05-26 21:34 | MHC.CM.ED ---
Dr Charles requested CM call this patients last facility to verify discharge. CM reviewed old medical record. [place] [facility] [place] [place]/14-04/21/2025. Needing IV antibiotics for 6 weeks for positive blood cultures. Pt was discharged on 04/21 to [facility] with a PICC line for IV therapy.. CM called [facility] [phone] and spoke with supervisor maintenance and custodians. Pt left the facility AMA on 04/23. Dr Charles aware of above information.
== END 2025-05-26 21:35 | disposition left against medical advice (07) ==
PROVIDERS: Emergency Provider Emergency Medicine; PCP Family Medicine
DX: M46.26 Osteomyelitis of vertebra, lumbar region (principal); R00.0 Tachycardia, unspecified; Z79.899 Other long term (current) drug therapy
CPT/HCPCS: 36415; 80053; 83605; 85025; 87040; 93005; 99283

== ENCOUNTER → 2025-05-26 20:23 | Outpatient (BNV) | payer MEDICARE, MEDICAID, SELFPAY | PROVIDERS: Emergency Provider Emergency Medicine; PCP Family Medicine; Visit Provider Internal Medicine Cardiovascular Disease | DX: R00.0 Tachycardia, unspecified (principal) | CPT/HCPCS: 93010 ==

== ENCOUNTER 2025-06-05 21:00 | Emergency (ER) | payer MEDICARE, MEDICAID, SELFPAY ==
[2025-06-05 21:04] VITALS: BP 135/85; PULSE 106; RESP 20; TEMP 36.7; O2SAT 98; BMI 29.7
[2025-06-05 21:16] LABS: MANUAL DIFF FLAG NO
[2025-06-05 21:18] LABS: Hematocrit 38.6 % (42.0-52.0); Hemoglobin 13.0 g/dl (14.0-18.0); Imm Gran Abs Auto 0.02 X10*3/uL (0.00-0.03); Imm Gran Pct Auto 0.3 % (0.0-0.4); Lymphocytes Absolute Auto 2.3 X10*3/uL (1.2-4.9); Mean Corpuscular HGB Conc 33.7 g/dl (31.0-36.0); Mean Corpuscular Hemoglobin 30.0 pg (27.0-33.0); Mean Corpuscular Volume 89.1 fL (80.0-98.0); NRBC Abs Auto 0.000 X10*3/uL (0.0-0.012); NRBC Pct Auto 0.0 /100WBC (0.0-0.2); Platelet Count 221 X10*3/uL (160-400); Red Blood Count 4.33 X10*6/uL (4.60-5.80); White Blood Count 6.9 X10*3/uL (4.8-10.8)
[2025-06-05 21:36] LABS: Alanine Aminotransferase 27 U/L (0-40); Albumin Level 4.7 g/dL (3.5-5.0); Alkaline Phosphatase 153 U/L (39-117); Anion Gap 16 (12-20); Aspartate Amino Transferase 43 U/L (5-37); Blood Urea Nitrogen 28 mg/dL (9-16); Calcium 9.7 mg/dL (8.4-10.2); Carbon Dioxide 25 mmol/L (22-29); Chloride 106 mmol/L (96-108); Creatinine Clr Calc Pharmacy 110.5; Estimated Glomerular Filt Rate > 60; Potassium 4.5 mmol/L (3.3-5.1); Sodium 142 mmol/L (135-145); Total Protein 7.9 g/dL (6.5-8.0)
[2025-06-05 22:51] VITALS: BP 125/65; PULSE 87; RESP 16; TEMP 36.8; O2SAT 95
--- NOTE | 2025-06-05 23:56 | ED.GENADULT ---
HPI - General Adult General Chief complaint: General Medical Stated complaint: Infection Time Seen by Provider: 06/05/25 23:21 Source: patient, RN notes reviewed and old records reviewed Mode of arrival: ambulatory Limitations: no limitations History of Present Illness ED Provider: Hubert HPI narrative: 35-year-old male past medical history significant for IV drug abuse, recent diskitis/osteomyelitis presents for evaluation of ?a spine infection. ? The patient is ultimately discharged from this facility on 04/21/2025 for osteomyelitis and diskitis. It was recommended that he complete a 6 week course of Ancef or daptomycin. The patient is ultimately discharged to [facility] in [place] He apparently left that facility on 04/23/2025 against medical advice. He reports that he went to [facility] that day and then was ultimately discharged to [facility] rehab He reports he completed his 6 week course of antibiotics He was seen here on 05/26/2025 with a PICC line still in place It was removed in the ED and he was given a week's worth of Keflex The patient reports that he feels much better, his back pain has improved but he still has some back pain. He is able to bend over and touch his toes. He denies any fevers or chills in the last couple of weeks I did call [facility] rehab and they confirmed he was discharged about 10 days ago after receiving his antibiotics for about 1 month at their facility The patient's mother is bedside and corroborates this story Related Data Home Medications ?Medication ?Instructions ?Recorded ?Confirmed ibuprofen 200 mg tablet (Advil) 600 mg PO Q8H PRN Pain 04/14/25 04/14/25 Previous Rx's ?Medication ?Instructions ?Recorded quetiapine 400 mg tablet 400 mg PO BEDTIME #30 tabs 11/20/21 cefazolin 2 gram/50 mL in dextrose See Rx Instructions .Route 04/21/25 (iso-osmotic) intravenous piggyback .COMPLEX 6 weeks #72 ea clonazepam 1 mg tablet 1 mg PO TID PRN Anxiety #30 tabs 04/21/25 oxycodone 10 mg tablet 10 mg PO Q6H PRN pain #30 tabs 04/21/25 methadone 10 mg tablet 50 mg (5 x 10 mg) PO DAILY #150 04/22/25 tabs cephalexin 500 mg capsule 500 mg PO QID 7 days #28 caps 05/26/25 Allergies Allergy/AdvReac Type Severity Reaction Status Date / Time Sulfa (Sulfonamide Allergy Unknown RASH Verified 06/05/25 21:07 Antibiotics) (SULFA (SULFONAMIDE ANTIBIOTICS)) sulfamethoxazole (From Allergy Unknown Unknown Verified 06/05/25 21:07 Bactrim) trimethoprim (From Bactrim) Allergy Unknown Unknown Verified 06/05/25 21:07 gluten Allergy Unknown Verified 06/05/25 21:07 Review of Systems Constitutional: Constitutional: Denies body ache(s), Denies chills, Denies fever(s), Denies frequent falls and Denies headache(s) Eyes: Eyes: Denies blurry vision ENT: Denies vertigo, Denies dizziness, Denies dry mouth and Denies headache(s) Cardiovascular: Cardiovascular: Denies chest pain and Denies dyspnea on exertion Respiratory: Respiratory: Denies cough and Denies dyspnea on exertion Gastrointestinal: Gastrointestinal: Denies abdominal pain and Denies nausea Musculoskeletal: Musculoskeletal: Reports back pain, Denies numbness, Denies radiating pain into limb, Reports stiffness and Denies tingling Integumentary/Breasts: Skin/Breast: Denies erythema and Denies rash Neurologic: Denies vertigo, Denies dizziness, Denies frequent falls, Denies headache(s), Denies numbness and Denies tingling PMFSH Past Medical History Medical History Opioid use disorder History of intravenous drug abuse Back pain Bacteremia Schizo affective schizophrenia Bipolar disorder CVA (cerebral vascular accident) Medical non-compliance Social History Social History Household Members: Family Household Members Other:: Mother, Father Housing: House Do you presently have visiting nurse or other home services: No Alcohol intake: current Alcohol intake frequency: holidays/special occasions only Alcohol type: beer and hard liquor Comment: PT ASLEEP Patient Tobacco Use Status: Never used Tobacco Cigarette Packs Per Day: 1 Cigarettes Per Day: 20.0 Second Hand Smoke Exposure: No Substance Use Type: IV Drugs Advance Directives: No Advance Directives Information Provided: No Do you have a plan to hurt others: No Plan service: No Sexual orientation: Straight/Heterosexual Physical Exam ED Vital Signs: Vital Signs - 24 hr 06/05/25 21:04 06/05/25 22:51 Temperature 98.0 F 98.2 F Pulse Rate 106 H 87 Respiratory Rate 20 16 Blood Pressure 135/85 125/65 Pulse Oximetry 98 95 Oxygen Delivery Method Room Air Room Air BMI result Body Mass Index 29.7 Const General: healthy appearing, comfortable, no acute distress, alert and awake Nutritional Appearance: well nourished Orientation/consciousness: patient oriented x3 HENMT Head: Yes normocephalic and Yes atraumatic Eyes Eyelids: Yes eyelids normal Conjunctivae: conjunctivae normal Sclerae: sclerae normal Corneas: corneas normal Pupils: Equal, round and reactive pupils present EOM: EOMs intact bilaterally Neck Neck: Yes full ROM Resp Effort & Inspection: normal respiratory effort, able to speak in complete sentences and not labored Cardio Rate: regular rate Rhythm: regular rhythm GI Inspection: No distended Palpation (GI): Soft to palpation, not firm, nontender, no guarding and not rigid Back/Spine/Pelvis Other: no tenderness to the thoracic or lumbar spine. No vertebral tenderness. No step-offs or deformities. The patient is able to bend over and touch his toes Skin General skin exam: elasticity normal Neuro General: patient oriented x3 Cranial nerves: Yes Equal, round and reactive pupils present and Yes Bilaterally intact EOM present Cognition (Neuro): normal cognition Extrem Other: Moving all extremities well without any obvious deformities Course Reevaluation(s) Reevaluation #1: The patient is quite anxious to be discharged. His ESR is still pending, his CRP was just at the upper limits of normal. Again no fever, no leukocytosis with the patient's back pain has improved. I have a low suspicion for continued diskitis or osteomyelitis. It does has a the patient has completed his course of IV antibiotics and additional week of p.o. Keflex. The patient be discharged to follow up with his outpatient providers at this time Time: 01:12 Medical Decision Making Medical Decision Making MDM Narrative: 35-year-old male with past medical history as above presents for evaluation of ?spine infection. ? That story is difficult to follow up but it seems that he did actually finished 6 weeks of IV antibiotics but this was at all different facilities. His PICC line was removed and days ago and this facility and then he completed a week's worth of Keflex. The patient is still has mild back pain but no neurologic signs or symptoms. He reports his back pain is significantly improved from his initial presentation. He denies any fevers in the last week. The patient's mother is bedside and reports that he was in fact receiving his IV antibiotics for the full 6 weeks. The patient is requesting an additional prescription of Keflex. The patient had screening labs and he has no leukocytosis or left shift. His blood cultures from 05/26/2025 were negative. Primary not entirely sure the patient requires additional antibiotics at this time. It does actually seem like he completed 6 weeks of IV Ancef [facility]. I will repeat blood cultures, inflammatory markers. Differential Diagnosis Differential Diagnoses: The differential diagnosis associated with the presentation includes Polysubstance abuse Opiate abuse Diskitis Osteomyelitis Medication noncompliance Lab Data MDM Lab Attestation statement: I reviewed the patient's lab results. No leukocytosis or significant anemia. Normal platelet count. No left shift. No chemistry abnormalities warranting intervention. 06/05/25 21:13 06/05/25 21:13 Labs: Lab Results 06/05/25 06/06/25 Range/Units 21:13 00:06 WBC 6.9 (4.8-10.8) X10*3/uL RBC 4.33 L (4.60-5.80) X10*6/uL Hgb 13.0 L (14.0-18.0) g/dl Hct 38.6 L (42.0-52.0) % MCV 89.1 (80.0-98.0) fL MCH 30.0 (27.0-33.0) pg MCHC 33.7 (31.0-36.0) g/dl RDW 13.0 (11.0-16.0) % Plt Count 221 (160-400) X10*3/uL MPV 9.7 (9.4-12.4) fL Immature Gran % (Auto) 0.3 (0.0-0.4) % Neut % (Auto) 58.5 (45-73) % Lymph % (Auto) 33.1 (20-40) % [place] % (Auto) 6.5 (2-11) % Eos % (Auto) 1.2 (0-4) % Baso % (Auto) 0.4 (0-2) % Lymph # (Auto) 2.3 (1.2-4.9) X10*3/uL [place] # (Auto) 0.5 (0.1-1.2) X10*3/uL Eos # (Auto) 0.1 (0.0-0.4) X10*3/uL Baso # (Auto) 0.0 (0.0-0.2) X10*3/uL Abs Immat Gran (auto) 0.02 (0.00-0.03) X10*3/uL Absolute Neuts (auto) 4.1 (2.0-8.3) x10*3/uL Absolute Nucleated RBC 0.000 (0.0-0.012) X10*3/uL Nucleated RBC % (auto) 0.0 (0.0-0.2) /100WBC Sodium 142 (135-145) mmol/L Potassium 4.5 (3.3-5.1) mmol/L Chloride 106 (96-108) mmol/L Carbon Dioxide 25 (22-29) mmol/L Anion Gap 16 (12-20) BUN 28 H (9-16) mg/dL Creatinine 1.16 (0.5-1.4) mg/dL Estim Creat Clear Calc 110.5 Estimated GFR > 60 Random Glucose 101 (60-115) mg/dL Calcium 9.7 (8.4-10.2) mg/dL Total Bilirubin 0.4 (0.0-1.0) mg/dL AST 43 H (5-37) U/L ALT 27 (0-40) U/L Alkaline Phosphatase 153 H (39-117) U/L C-Reactive Protein 0.56 H (< or = 0.50) mg/dL Total Protein 7.9 (6.5-8.0) g/dL Albumin 4.7 (3.5-5.0) g/dL Discharge Plan Discharge Clinical Impression: Discitis Patient Disposition: Home, Self-Care Additional Instructions: Your workup in the ER today was reassuring. It appears that your diskitis/osteomyelitis has cleared. If you developed worsening back pain, fevers or chills you should return for evaluation and a repeat MRI. In the meantime you do not need any additional antibiotics. Follow up with your primary doctor, return for new or worsening symptoms Prescriptions: No Action quetiapine 400 mg Tablet 400 mg PO BEDTIME Qty: 30 0RF ibuprofen [Advil] 200 mg Tablet 600 mg PO Q8H PRN (Reason: Pain) cefazolin in dextrose (iso-os) 2 gram/50 mL Piggyback See Rx Instructions .ROUTE .COMPLEX 42 Days Qty: 72 0RF Rx Instructions: 2 g in 50 mL dextrose q.8 hours... Last dose 05/29/25 oxycodone 10 mg tablet 10 mg PO Q6H PRN (Reason: pain) Qty: 30 0RF Rx Instructions: Partial Fill upon patient request. clonazepam 1 mg tablet 1 mg PO TID PRN (Reason: Anxiety) Qty: 30 0RF methadone 10 mg tablet 50 mg PO DAILY Qty: 150 0RF Rx Instructions: Partial Fill upon patient request. cephalexin 500 mg capsule 500 mg PO QID 7 Days Qty: 28 0RF Print Language: Czech
[2025-06-06 01:14] VITALS: BP 125/65; PULSE 87; RESP 16; TEMP 36.8; O2SAT 95
[2025-06-06 01:34] LABS: Erythrocyte Sedimentation Rate 19 MM/HR (0-15)
== END 2025-06-06 01:14 | disposition home or self-care (01) ==
PROVIDERS: Physician Assistant; Emergency Provider Emergency Medicine; PCP Family Medicine
DX: M46.40 Discitis, unspecified, site unspecified (principal)
CPT/HCPCS: 36415; 80053; 85025; 85652; 86140; 87040; 99283; 99284